=== PATIENT | female | born 1950 | race Caucasian/White ===

== ENCOUNTER 2020-06-22 10:24 | Outpatient (REF) | payer MEDICARE, OTHER, SELFPAY ==
[2020-06-22 13:28] LABS: MANUAL DIFF FLAG NO
[2020-06-22 13:30] LABS: Basophils Percent Auto 0.7 % (0-2); Eosinophils Absolute Auto 0.1 X10*3/uL (0.0-0.4); Eosinophils Percent Auto 1.3 % (0-4); Hematocrit 35.5 % (37-47); Imm Gran Abs Auto 0.02 X10*3/uL (0.00-0.03); Imm Gran Pct Auto 0.4 % (0.0-0.4); Lymphocytes Absolute Auto 1.4 X10*3/uL (1.2-4.9); Lymphocytes Percent Auto 25.4 % (20-40); Mean Corpuscular HGB Conc 33.8 g/dl (31.0-35.0); Mean Corpuscular Hemoglobin 32.9 pg (27.0-33.0); Mean Corpuscular Volume 97.3 fL (80-98); Mean Platelet Volume 10.6 fL (9.4-12.3); Monocytes Absolute Auto 0.5 X10*3/uL (0.1-1.2); Monocytes Percent Auto 8.1 % (2-11); Neutrophils Absolute Auto 3.6 X10*3/uL (2.0-8.3); Neutrophils Percent Auto 64.1 % (45-73); Platelet Count 164 X10*3/uL (160-400); Red Blood Count 3.65 X10*6/uL (4.20-5.50); Red Cell Distribution Width 12.9 % (11.0-16.0); White Blood Count 5.6 X10*3/uL (4.8-10.8)
[2020-06-22 13:57] LABS: Alanine Aminotransferase 29 U/L (0-31); Albumin Level 4.7 g/dL (3.5-5.0); Alkaline Phosphatase 76 U/L (39-117); Anion Gap 14 (12-20); Aspartate Amino Transferase 26 U/L (5-31); Bilirubin Total 0.8 mg/dL (0.0-1.0); Blood Urea Nitrogen 13 mg/dL (9-16); Calcium 9.4 mg/dL (8.4-10.2); Carbon Dioxide 28 mmol/L (22-29); Chloride 95 mmol/L (96-108); Cholesterol 212 mg/dL; Estimated Glomerular Filt Rate > 60; Glucose Fasting 143 mg/dL (60-99); HDL Cholesterol 74 mg/dL; LDL Cholesterol Calculated 106 mg/dl; Potassium 4.5 mmol/l (3.3-5.1); Sodium 132 mmol/L (135-145); Total Protein 7.6 g/dL (6.5-8.0); Triglycerides 164 mg/dL
[2020-06-22 13:58] LABS: Creatinine Urine 140.43 mg/dL; Microalbum/Creatinine Ratio Ur 5.6 ug/mg cr
[2020-06-22 14:39] LABS: Thyroid Stimulating Hormone 3.24 mIU/mL (0.32-4.0)
[2020-06-22 15:03] LABS: Folate > 20.0 ng/mL (> or = 4.0); Vitamin B12 1156 pg/mL (200-900)
[2020-06-22 15:10] LABS: T4 Thyroxine 5.2 ug/dL (4.5-12.0)
== END 2020-06-22 10:25 | disposition home or self-care (01) ==
LOC: HO.WFDLDS 10:24
PROVIDERS: PCP Internal Medicine; Visit Provider Internal Medicine
DX: E11.9 Type 2 diabetes mellitus without complications (principal); I10 Essential (primary) hypertension; E78.00 Pure hypercholesterolemia, unspecified; E66.9 Obesity, unspecified
CPT/HCPCS: 36415; 80053; 80061; 82043; 82607; 82746; 84436; 84443; 85025

== ENCOUNTER 2020-12-23 10:48 | Outpatient (REF) | payer MEDICARE, OTHER, SELFPAY ==
[2020-12-23 21:07] LABS: MANUAL DIFF FLAG NO
[2020-12-23 21:10] LABS: Basophils Absolute Auto 0.1 X10*3/uL (0.0-0.2); Basophils Percent Auto 0.8 % (0-2); Eosinophils Absolute Auto 0.1 X10*3/uL (0.0-0.4); Eosinophils Percent Auto 1.1 % (0-4); Hemoglobin 11.2 g/dl (12.0-16.0); Imm Gran Abs Auto 0.02 X10*3/uL (0.00-0.03); Imm Gran Pct Auto 0.3 % (0.0-0.4); Lymphocytes Absolute Auto 1.3 X10*3/uL (1.2-4.9); Lymphocytes Percent Auto 19.7 % (20-40); Mean Corpuscular HGB Conc 32.9 g/dl (31.0-35.0); Mean Corpuscular Hemoglobin 32.1 pg (27.0-33.0); Mean Corpuscular Volume 97.4 fL (80-98); Mean Platelet Volume 9.9 fL (9.4-12.3); Monocytes Absolute Auto 0.5 X10*3/uL (0.1-1.2); Monocytes Percent Auto 7.8 % (2-11); Neutrophils Absolute Auto 4.7 X10*3/uL (2.0-8.3); Neutrophils Percent Auto 70.3 % (45-73); Platelet Count 193 X10*3/uL (160-400); Red Blood Count 3.49 X10*6/uL (4.20-5.50); Red Cell Distribution Width 13.4 % (11.0-16.0); White Blood Count 6.6 X10*3/uL (4.8-10.8)
[2020-12-23 21:21] LABS: Alanine Aminotransferase 20 U/L (0-31); Albumin Level 4.1 g/dL (3.5-5.0); Alkaline Phosphatase 94 U/L (39-117); Anion Gap 15 (12-20); Aspartate Amino Transferase 18 U/L (5-31); Bilirubin Total 0.6 mg/dL (0.0-1.0); Blood Urea Nitrogen 13 mg/dL (9-16); Calcium 9.3 mg/dL (8.4-10.2); Carbon Dioxide 26 mmol/L (22-29); Chloride 96 mmol/L (96-108); Cholesterol 188 mg/dL; Estimated Glomerular Filt Rate 52; Glucose Fasting 153 mg/dL (60-99); HDL Cholesterol 69 mg/dL; LDL Cholesterol Calculated 97 mg/dl; Potassium 4.6 mmol/L (3.3-5.1); Sodium 132 mmol/L (135-145); Total Protein 7.2 g/dL (6.5-8.0); Triglycerides 110 mg/dL
[2020-12-23 21:34] LABS: Creatinine Urine 220.58 mg/dL; Microalbum/Creatinine Ratio Ur 49.4 ug/mg cr
[2020-12-23 21:42] LABS: Thyroid Stimulating Hormone 2.39 uIU/mL (0.32-4.0)
[2020-12-24 07:26] LABS: Estimated Average Glucose 120 mg/dL; Hemoglobin A1c % 5.8 %
[2020-12-24 09:41] LABS: Folate 16.7 ng/mL (> or = 4.0); Vitamin B12 953 pg/mL (200-900)
== END 2020-12-23 10:49 | disposition home or self-care (01) ==
LOC: HO.WFDLDS 10:48
PROVIDERS: Visit Provider Internal Medicine
DX: E78.00 Pure hypercholesterolemia, unspecified (principal)
CPT/HCPCS: 36415; 80053; 80061; 82043; 82607; 82746; 83036; 84443; 85025

== ENCOUNTER 2021-02-03 13:26 | Outpatient (REF) | payer MEDICARE, OTHER, SELFPAY ==
--- NOTE | ~2021-02-03 | MM_ITS ---
EXAMINATION: MM SCREENING DIGITAL BREAST TOMOSYNTHESIS, BILATERAL CLINICAL INFORMATION: Screening. Asymptomatic. The lifetime risk of breast cancer based on the Tyrer-Cuzick Model is 4%. COMPARISON: Mammography: September 16, 2019 and studies dating back to April 22, 2012 TECHNIQUE: Digital breast tomosynthesis is performed in both the craniocaudal and mediolateral oblique views along with computer-aided detection (CAD). Synthesized 2D images are generated from the tomosynthesis. FINDINGS: The breasts are heterogeneously dense, which may obscure small masses (ACR BI-RADS breast composition Category c). There are no significant masses, abnormal calcifications, or other abnormalities. MM/MM tomosynthesis screening BI IMPRESSION: There are no significant changes from prior study. ASSESSMENT: BI-RADS 1: Negative RECOMMENDATION: Routine annual mammography screening. This patient's information was entered into a reminder system with a target due date for their next mammogram.
== END 2021-02-03 13:27 | disposition home or self-care (01) ==
LOC: HO.MAMMO 13:26
PROVIDERS: Visit Provider Internal Medicine
DX: Z12.31 Encounter for screening mammogram for malignant neoplasm of breast (principal)
CPT/HCPCS: 77063; 77067

== ENCOUNTER 2021-03-31 14:27 | Outpatient (REF) | payer MEDICARE, OTHER, SELFPAY ==
--- NOTE | ~2021-03-31 | MM_ITS ---
EXAMINATION: BONE DENSITOMETRY CLINICAL INDICATION: Other specified disorders of bone density and structure. COMPARISON: Previous BD dated 07/27/2015 and baseline BD dated 12/01/2008. TECHNIQUE: Using a Catacel DXA System (software version: 13.1) manufactured by [employer], dual-energy x-ray absorptiometry was performed of the lumbar spine and left hip. The images are of good technical quality. Summary results are attached. FINDINGS: AP SPINE L1-L4: Current: BMD 1.414 g/cm2, Z-score 3.5, T-score 1.9, normal, 8.5% increase from previous, 11.1% increase from baseline (<5% change is not significant). Prior: BMD 1.303 g/cm2. Baseline: BMD 1.273 g/cm2. LEFT FEMUR, NECK: Current: BMD 0.978 g/cm2, Z-score 1.1, T-score -0.4, normal. Prior: BMD 1.028 g/cm2. Baseline: BMD 1.057 g/cm2. LEFT FEMUR, TOTAL: Current: BMD 1.164 g/cm2, Z-score 2.5, T-score 1.2, normal, 6.1% decrease from previous, 3.2% decrease from baseline (<5% change is not significant). Prior: BMD 1.239 g/cm2. Baseline: BMD 1.202 g/cm2. IDENTIFIED RISK FACTORS: Menopause. HISTORY OF FRACTURE: None listed. MEDICATIONS: Vitamin D. MM/XR DEXA axial skeleton IMPRESSION: 1. DIAGNOSIS: Normal bone density based on the lowest T-score value of -0.4 in the femoral neck applying World Health Organization criteria. 2. 10-YEAR FRACTURE RISK PREDICTION, FRAX: Major osteoporotic fracture (clinical spine, forearm, hip or shoulder) 7.5%. Hip fracture 0.4%. 3. Treatment Recommendations: NOF guidelines recommend consideration for treatment in postmenopausal women and men age 50 and older presenting with the following: -A hip or vertebral (clinical or morphometric) fracture. -T-score less than or equal to -2.5 at the femoral neck or spine after appropriate evaluation to exclude secondary causes. -Low bone mass at the hip or spine and a 10-year fracture probability by FRAX of greater than or equal to 3% for hip fracture or greater than or equal to 20% for major osteoporotic fracture based on the [place] adapted WHO algorithm. 4. Other Recommendations: All treatment decisions require clinical judgment and consideration of individual patient factors, including patient preferences, comorbidities, previous drug use, risk factors not captured in the FRAX model (e.g. frailty, falls, vitamin D deficiency, increased bone turnover, interval significant decline in bone density) and possible under or overestimation of fracture risk by FRAX. FUTURE SCAN RECOMMENDATION: People with diagnosed cases of osteoporosis or at high risk for fracture should have regular bone mineral density tests. For patients eligible for Medicare, routine testing is allowed once every 2 years. The testing frequency can be increased to one year for patients who have rapidly progressing disease, those who are receiving or discontinuing medical therapy to restore bone mass, or have additional risk factors.
== END 2021-03-31 14:28 | disposition home or self-care (01) ==
LOC: HO.MAMMO 14:27
PROVIDERS: Visit Provider Internal Medicine
DX: Z13.820 Encounter for screening for osteoporosis (principal); M85.89 Other specified disorders of bone density and structure, multiple sites; Z78.0 Asymptomatic menopausal state
CPT/HCPCS: 77080

== ENCOUNTER 2021-09-29 10:02 | Outpatient (REF) | payer MEDICARE, OTHER, SELFPAY ==
[2021-09-29 14:01] LABS: MANUAL DIFF FLAG NO
[2021-09-29 14:11] LABS: Basophils Percent Auto 0.8 % (0-2); Eosinophils Absolute Auto 0.1 X10*3/uL (0.0-0.4); Eosinophils Percent Auto 1.3 % (0-4); Hematocrit 32.1 % (37.0-47.0); Imm Gran Abs Auto 0.01 X10*3/uL (0.00-0.03); Imm Gran Pct Auto 0.3 % (0.0-0.4); Immature Retic Fraction 4.3 % (3.0-15.9); Lymphocytes Absolute Auto 1.3 X10*3/uL (1.2-4.9); Lymphocytes Percent Auto 31.4 % (20-40); Mean Corpuscular HGB Conc 34.3 g/dl (31.0-35.0); Mean Corpuscular Volume 96.4 fL (80.0-98.0); Mean Platelet Volume 9.9 fL (9.4-12.3); Monocytes Absolute Auto 0.3 X10*3/uL (0.1-1.2); Monocytes Percent Auto 7.3 % (2-11); Neutrophils Absolute Auto 2.4 x10*3/uL (2.0-8.3); Neutrophils Percent Auto 58.9 % (45-73); Platelet Count 143 X10*3/uL (160-400); Red Blood Count 3.33 X10*6/uL (4.20-5.50); Red Cell Distribution Width 12.1 % (11.0-16.0); Retic HGB Equivalent 37.1 pg (30.0-35.0); Reticulocyte Percent 1.2 % (0.5-1.8); Reticulocytes Absolute 0.039 X10*6/uL (0.026-0.095)
[2021-09-29 14:34] LABS: Ferritin 388 ng/mL (10-250)
[2021-09-29 14:36] LABS: Cholesterol 236 mg/dL; HDL Cholesterol 96 mg/dL; Iron 155 mcg/dL (30-160); LDL Cholesterol Calculated 117 mg/dl; Percent Iron Saturation 49 % (15-50); Total Iron Binding Capacity 317 mcg/dL (228-428); Triglycerides 115 mg/dL; Unsaturated Iron Binding 162 ug/dL
[2021-09-29 14:46] LABS: Folate 15.8 ng/mL (> or = 4.0); Vitamin B12 1227 pg/mL (200-900)
== END 2021-09-29 10:03 | disposition home or self-care (01) ==
LOC: HO.WFDLDS 10:02
PROVIDERS: Visit Provider Internal Medicine
DX: E78.00 Pure hypercholesterolemia, unspecified (principal); D64.9 Anemia, unspecified
CPT/HCPCS: 36415; 80061; 82607; 82728; 82746; 83540; 85025; 85045

== ENCOUNTER 2022-01-04 06:17 | Day surgery (SDC) | payer MEDICARE, OTHER, SELFPAY ==
[2021-12-29 14:39] VITALS: BMI 29.2
[2022-01-04 06:36] VITALS: BP 180/71; PULSE 78; RESP 18; TEMP 36.5; O2SAT 95
--- NOTE | 2022-01-04 07:16 | HO.ANESPROP2 ---
HPI - Anesthesia Eval Consult details Narrative: 71 yo female patient for colonoscopy PMFSH Active Problems Active Problems: All Active Problems (Updated 12/29/21 @ 14:32 by Alma Rosa Hunt RN) Anemia (Acute) Osteoarthritis of knees, bilateral (Acute) Colon cancer screening (Acute) Amezcua cyst (Acute) Osteopenia (Acute) Breast cancer screening by mammogram (Acute) Hypertension (Acute) Hypercholesterolemia (Acute) Type 2 diabetes mellitus with hyperglycemia (Acute) Past Medical History Medical History (Updated 12/29/21 @ 14:32 by Alma Rosa Hunt RN) Hypercholesterolemia Hypertension Type 2 diabetes mellitus with hyperglycemia Family History Family History Father Lung cancer Mother Myocardial infarction Family history of problems with anesthesia: No Surgical History Surgical History (Updated 12/29/21 @ 14:34 by Alma Rosa Hunt RN) H/O colonoscopy History of section History of Problems with Anesthesia: No Social History Social History Alcohol intake: current Alcohol intake frequency: a few times a month Alcohol type: wine Patient Tobacco Use Status: Former Tobacco user Tobacco use type: Cigarette e-Cigarette/Vaping Use: Never Used Second Hand Smoke Exposure: No Advance Directives: No (unknown-no answer & VM full) Advance Directives Information Provided: Yes (brochure mailed) Advance Directives on File: No Meds Allergies Allergy/AdvReac Type Severity Reaction Status Date / Time No Known Allergies Allergy Verified 01/04/22 06:42 [No Known Allergies*] Active Medications: Current Medications Sodium Biphosphate/Sodium Phosphate (Sodium Phosphate,Yates-Dibasic 133 Ml Enema) 133 ml LA ONCE PRN PRN Reason: Poor Colonoscopy Prep Results Home Medications Medication Instructions Recorded Confirmed Last Taken Type aspirin 81 mg tablet,delayed 81 mg PO DAILY 06/28/20 01/04/22 12/28/21 History release (Adult Aspirin Regimen) cholecalciferol (vitamin D3) 50 50 mcg PO DAILY 06/28/20 12/29/21 Unknown History mcg (2,000 unit) capsule multivitamin 1 tab PO DAILY 12/29/21 12/29/21 Unknown History Exam Exam Date and Time: January 04, 2022 0716 Height,Weight and Vital Signs: Height 5 ft 1 in Weight 70.307 kg Last Vital Signs Temp 97.7 F 01/04/22 06:36 Pulse 78 01/04/22 06:36 Resp 18 01/04/22 06:36 BP 180/71 H 01/04/22 06:36 Pulse Ox 95 01/04/22 06:36 Pertinent Lab Results Pertinent Lab Results: POC 123mg/dL Airway Mallampati Class: III TM Dist: >3cm Neck ROM: Full Heart: RRR Lungs: CTAB Assessment and Plan Assessment Anesthesia Assessment: Anesthesia Plan Discussed and Chart Reviewed Final Anesthetic Review Family History of Problems with Anesthesia: No History of Problems with Anesthesia: No NPO: Yes ASA Class: II Final Preanesthetic Review: No Changes in Pt Med Stat, Meds/Allgs Chart Reviewed, Consent Obtained/Reviewed and Anes Risks/Benef Reviewed Patient Risk: Low Procedure Risk: Low Assessment/Block/Sedation in SS: Assess/Block/Sedation-SS Anesthetic Plan Anesthetic Plan: MAC: Disposition: Standard PACU
[2022-01-04 07:17] VITALS: BP 142/94; PULSE 74; RESP 18; TEMP 37.1; O2SAT 98
[2022-01-04] MEDS: Lactated Ringers 1,000 ML 100 ML IVCONT (07:30)
[2022-01-04 07:47] LABS: Glucose, Whole Blood 123 mg/dL (60-115)
[2022-01-04 08:22] VITALS: BP 136/66; PULSE 112; RESP 18; TEMP 37.1; O2SAT 99
--- NOTE | 2022-01-04 08:22 | P.BOP_ITS ---
Brief Operative Note Date of Service: 01/04/22 Pre-op diagnosis: Screening Post-op diagnosis: other (Diverticulosis) Procedure: Colonoscopy to the cecum and TI Surgeon: Carlos Carlson Anesthesia: MAC Was an Chocolate Finisher Operator used for this Procedure?: No Estimated blood loss (mL): 0 Pathology: none sent Condition: stable Disposition: PACU
[2022-01-04 08:37] VITALS: BP 135/64; PULSE 92; RESP 18; O2SAT 99
[2022-01-04 08:52] VITALS: BP 143/72; PULSE 92; RESP 18; TEMP 36.2; O2SAT 99
--- NOTE | 2022-01-04 20:08 | OP_ITS ---
SURGEON: Carlos Carlson MD INDICATIONS: The patient presents for evaluation of colorectal cancer screening. Full consent has been obtained from her for this, including risks of bleeding and perforation. PREOPERATIVE DIAGNOSIS: Colorectal cancer screening. POSTOPERATIVE DIAGNOSIS: PROCEDURE PERFORMED: Colonoscopy to the cecum and terminal ileum. ESTIMATED BLOOD LOSS: COMPLICATIONS: ANESTHESIA: Monitored anesthesia care. ASSISTANTS: SPECIMENS: POSTOPERATIVE DIAGNOSES: Colorectal cancer screening, sigmoid diverticulosis, and internal hemorrhoids. DESCRIPTION OF PROCEDURE: The patient was placed in the left lateral decubitus position. The digital rectal exam revealed no abnormalities. The Olympus video pediatric colonoscope was entered into the rectum and advanced easily to the cecum. Once in the cecum, I did identify normal-appearing cecal pouch with appendiceal orifice and a normal-appearing ileocecal valve. The terminal ileum was cannulated and appeared normal. Scope withdrawn back in the colon. The entire cecum and ileocecal valve appeared normal. The scope was slowly withdrawn assessing all mucosal surfaces carefully. Preparation was excellent. I did not visualize any sign of polyps, colitis, or angiodysplasia. There was a mild amount of sigmoid diverticulosis. In the rectum, scope was retroflexed visualizing internal hemorrhoids, but no other pathology. The rectal mucosa appeared normal. The scope was straightened and withdrawn from the patient. She tolerated the procedure well and was returned to the recovery area in stable condition. IMPRESSION: 1. Sigmoid diverticulosis. 2. Internal hemorrhoids. PLAN: Given the negative exam, no significant family history of colorectal cancer, and a negative exam in 2010, I do not think she will need any further screening colonoscopies at this point given her age of 71 and the fact that she would be just about 82 years old when her next colonoscopy would be due. As such, she will see me on a p.r.n. basis. This has been discussed with her . MD KINZA Bernardo/MAYUR / [id number] [email or web address]
== END 2022-01-04 09:20 | disposition home or self-care (01) ==
PROVIDERS: PCP Internal Medicine; Visit Provider Internal Medicine
PROC: 0DJD8ZZ Inspection of Lower Intestinal Tract, Via Natural or Artificial Opening Endoscopic (ICD-10-PCS; CPT 45378; principal; 2022-01-04 07:30)
DX: Z12.11 Encounter for screening for malignant neoplasm of colon (principal); K57.30 Diverticulosis of large intestine without perforation or abscess without bleeding; K64.8 Other hemorrhoids; I10 Essential (primary) hypertension; E78.5 Hyperlipidemia, unspecified; E11.9 Type 2 diabetes mellitus without complications; Z79.82 Long term (current) use of aspirin; Z79.899 Other long term (current) drug therapy; Z87.891 Personal history of nicotine dependence
CPT/HCPCS: G0121; 82947; J2765

== ENCOUNTER 2022-02-07 13:36 | Outpatient (REF) | payer MEDICARE, OTHER, SELFPAY ==
--- NOTE | ~2022-02-07 | MM_ITS ---
EXAMINATION: MM SCREENING DIGITAL BREAST TOMOSYNTHESIS, BILATERAL CLINICAL INFORMATION: Screening. Asymptomatic. The lifetime risk of breast cancer based on the Tyrer-Cuzick Model is 3.2%. COMPARISON: Mammography: February 03, 2021 and studies dating back to June 06, 2014 TECHNIQUE: Digital breast tomosynthesis is performed in both the craniocaudal and mediolateral oblique views along with computer-aided detection (CAD). Synthesized 2D images are generated from the tomosynthesis. FINDINGS: The breasts are heterogeneously dense, which may obscure small masses (ACR BI-RADS breast composition Category c). There are no significant masses, abnormal calcifications, or other abnormalities. MM/MM tomosynthesis screening BI IMPRESSION: There are no significant changes from prior study. ASSESSMENT: BI-RADS 1: Negative RECOMMENDATION: Routine annual mammography screening. This patient's information was entered into a reminder system with a target due date for their next mammogram.
== END 2022-02-07 13:37 | disposition home or self-care (01) ==
LOC: HO.MAMMO 13:36
PROVIDERS: PCP Internal Medicine; Visit Provider Internal Medicine
DX: Z12.31 Encounter for screening mammogram for malignant neoplasm of breast (principal)
CPT/HCPCS: 77063; 77067

== ENCOUNTER 2023-05-09 12:28 | Emergency (ER) | payer MEDICARE, OTHER, SELFPAY ==
--- NOTE | 2023-05-09 12:29 | ECG_ITS ---
Test Reason : palpatations Blood Pressure : / mmHG Vent. Rate : 106 BPM Atrial Rate : 106 BPM P-R Int : 180 ms QRS Dur : 082 ms QT Int : 322 ms P-R-T Axes : 000 -26 147 degrees QTc Int : [address] & T wave abnormality, consider lateral ischemia Abnormal ECG When compared with ECG of 20-FEB-2016 21:06, Non-specific change in ST segment in Lateral leads Nonspecific T wave abnormality, improved in Anterior leads Heart rate has increased Referred By: Keisha Mccollum Electronically Signed By:MAUREEN MALONE
[2023-05-09 12:39] VITALS: BP 185/75; PULSE 108; RESP 19; TEMP 36.6; O2SAT 98; BMI 24.0
--- NOTE | 2023-05-09 12:39 | ED_ITS ---
HPI - General Adult General Chief complaint: Arrhythmia/Palpitations Stated complaint: Heart Palpitations Related Data Home Medications Medication Instructions Recorded Confirmed cholecalciferol (vitamin D3) 50 50 mcg PO DAILY 06/28/20 07/01/22 mcg (2,000 unit) capsule multivitamin 1 tab PO DAILY 12/29/21 07/01/22 Previous Rx's Medication Instructions Recorded losartan 50 mg tablet 50 mg PO BID #180 tabs 03/16/22 rosuvastatin 40 mg tablet (Crestor) 40 mg PO DAILY #90 tabs 10/01/22 atenolol 25 mg tablet 25 mg PO DAILY 90 days #90 tabs 04/09/23 Allergies Allergy/AdvReac Type Severity Reaction Status Date / Time No Known Allergies Allergy Verified 05/09/23 12:39 [No Known Allergies*] [facility] Past Medical History Medical History (Updated 11/06/22 @ 14:26 by Carla Lacey MD) Breast cancer screening by mammogram Colon cancer screening Hypercholesterolemia Hypertension Type 2 diabetes mellitus with hyperglycemia Surgical History H/O colonoscopy History of section Family History Family History Father Lung cancer Mother Myocardial infarction Social History Social History Housing: House Alcohol intake: current Alcohol intake frequency: a few times a month Alcohol type: wine Patient Tobacco Use Status: Former Tobacco user Tobacco use type: Cigarette e-Cigarette/Vaping Use: Never Used Second Hand Smoke Exposure: No Current occupational status: retired Cognitive needs: No Hearing needs: No Vision needs: No Physical Exam ED Vital Signs: Vital Signs - 24 hr 05/09/23 12:39 Temperature 98 F Pulse Rate 108 H Respiratory Rate 19 Blood Pressure 185/75 H Pulse Oximetry 98 Oxygen Delivery Method Room Air BMI result Body Mass Index 24.0 Course Course Course Narrative: This is an RME: Additional HPI, ROS, PE not included below will be deferred to primary provider. This is a 7-temt-pts-female, with a hx of htn, hld, type 2 diabetes, presenting to the emergency department with a complaint of heart palpitations since yesterday. Pt states that the palpitations have been constant. Denies hx of palpitations in the past. Denies chest pain, shortness of breath or dizziness. Heart sounds - tachycardic, but regular rhythm. BP elevated at 185/75 Plan: Labs, EKG Discharge Plan Discharge Prescriptions: No Action losartan 50 mg tablet 50 mg PO BID Qty: 180 3RF rosuvastatin [Crestor] 40 mg tablet 40 mg PO DAILY Qty: 90 2RF atenolol 25 mg tablet 25 mg PO DAILY 90 Days Qty: 90 1RF multivitamin Tablet 1 tab PO DAILY cholecalciferol (vitamin D3) 50 mcg (2,000 unit) capsule 50 mcg PO DAILY
[2023-05-09 12:54] LABS: MANUAL DIFF FLAG NO
[2023-05-09 12:56] LABS: Appearance Urine Clear; Basophils Absolute Auto 0.1 X10*3/uL (0.0-0.2); Basophils Percent Auto 1.1 % (0-2); Color Urine Yellow; Eosinophils Percent Auto 0.7 % (0-4); Glucose Urine UA Negative (Negative); Hematocrit 30.4 % (37.0-47.0); Hemoglobin 10.6 g/dl (12.0-16.0); Imm Gran Abs Auto 0.01 X10*3/uL (0.00-0.03); Imm Gran Pct Auto 0.2 % (0.0-0.4); Leukocyte Esterase Urine Negative (Negative); Lymphocytes Absolute Auto 1.4 X10*3/uL (1.2-4.9); Lymphocytes Percent Auto 25.8 % (20-40); Mean Corpuscular HGB Conc 34.9 g/dl (31.0-35.0); Mean Corpuscular Hemoglobin 33.3 pg (27.0-33.0); Mean Corpuscular Volume 95.6 fL (80.0-98.0); Mean Platelet Volume 9.4 fL (9.4-12.3); Monocytes Absolute Auto 0.4 X10*3/uL (0.1-1.2); Monocytes Percent Auto 6.9 % (2-11); Neutrophils Absolute Auto 3.5 x10*3/uL (2.0-8.3); Neutrophils Percent Auto 65.3 % (45-73); Nitrite Urine Negative (Negative); PH 5.5 (5.0-9.0); Platelet Count 159 X10*3/uL (160-400); Red Blood Count 3.18 X10*6/uL (4.20-5.50); Red Cell Distribution Width 11.7 % (11.0-16.0); Urine Blood Negative (Negative); Urine Ketones Trace mg/dL (Negative); Urine Protein Trace mg/dL (Neg-Trace); White Blood Count 5.4 X10*3/uL (4.8-10.8)
[2023-05-09 13:11] LABS: Alanine Aminotransferase 20 U/L (0-31); Albumin Level 4.7 g/dL (3.5-5.0); Alkaline Phosphatase 58 U/L (39-117); Anion Gap 18 (12-20); Aspartate Amino Transferase 29 U/L (5-31); Bilirubin Direct 0.3 mg/dL (0.0-0.5); Bilirubin Total 0.7 mg/dL (0.0-1.0); Blood Urea Nitrogen 17 mg/dL (9-16); Calcium 10.1 mg/dL (8.4-10.2); Carbon Dioxide 24 mmol/L (22-29); Chloride 99 mmol/L (96-108); Creatinine Clr Calc Pharmacy 38.8; Estimated Glomerular Filt Rate 49; Glucose Random 114 mg/dL (60-115); Magnesium 1.9 mg/dL (1.6-2.6); Potassium 4.2 mmol/L (3.3-5.1); Sodium 137 mmol/L (135-145); Total Protein 7.8 g/dL (6.5-8.0)
[2023-05-09 13:16] LABS: Troponin-I High Sensitivity 3.4 ng/L (<3.5-17.0)
[2023-05-09 16:19] VITALS: BP 161/58; PULSE 64; RESP 18; O2SAT 100
--- NOTE | 2023-05-09 17:57 | ED_ITS ---
HPI - Arrhythmia/Palpitations General Chief Complaint: Arrhythmia/Palpitations Stated Complaint: Heart Palpitations Time Seen by Provider: 05/09/23 15:49 History of Present Illness HPI narrative: Patient is a 72-year-old female with a history of borderline diabetes. History of hypertension history of hypercholesterolemia at approximately 11:00 patient had an episode of palpitation seems like the heartbeat was going fast it is not associated with shortness of breath not associated with diaphoresis not associated with near syncope. Patient's symptoms subsequently resolved after approximately 45 minutes. Something similar happen yesterday. Patient denies any coughing congestion upper respiratory symptoms there has been no changes in her medication there is no travel history there is no leg swelling there is no pain patient's symptoms had since resolved completely she has not seen a chief of staff doctor for the last 7 years. Had an echo done about 7 years ago. Related Data Home Medications Medication Instructions Recorded Confirmed cholecalciferol (vitamin D3) 50 50 mcg PO DAILY 06/28/20 07/01/22 mcg (2,000 unit) capsule multivitamin 1 tab PO DAILY 12/29/21 07/01/22 Previous Rx's Medication Instructions Recorded losartan 50 mg tablet 50 mg PO BID #180 tabs 03/16/22 rosuvastatin 40 mg tablet (Crestor) 40 mg PO DAILY #90 tabs 10/01/22 atenolol 25 mg tablet 25 mg PO DAILY 90 days #90 tabs 04/09/23 Allergies Allergy/AdvReac Type Severity Reaction Status Date / Time No Known Allergies Allergy Verified 05/09/23 12:39 [No Known Allergies*] Review of Systems Review of Systems: Positive palpitation Yes all other systems are reviewed and are negative PMFSH Past Medical History Attestation statement: The following information was validated with the patient. Medical History Breast cancer screening by mammogram Colon cancer screening Hypercholesterolemia Hypertension Type 2 diabetes mellitus with hyperglycemia Surgical History H/O colonoscopy History of section Family History Family History Father Lung cancer Mother Myocardial infarction Social History Social History Housing: House Alcohol intake: never Patient Tobacco Use Status: Former Tobacco user Tobacco use type: Cigarette Smoked in Last 30 Days: No e-Cigarette/Vaping Use: Never Used Second Hand Smoke Exposure: No Use of substances other than those prescribed or required for medical reasons: No Advance Directives: No Advance Directives Information Provided: No Current occupational status: retired Cognitive needs: No Hearing needs: No Vision needs: No Physical Exam Vital Signs: Vital Signs: Last Vital Signs Temp 98 F 05/09/23 12:39 Pulse 64 05/09/23 16:19 Resp 18 05/09/23 16:19 BP 161/58 H 05/09/23 16:19 Pulse Ox 100 05/09/23 16:19 O2 Del Method Room Air 05/09/23 16:19 BMI result Body Mass Index 24.0 Appearance: Alert. Oriented X3. No acute distress. Eyes: Pupils equal, round and reactive to light. ENT: Pharynx normal. Neck: Normal inspection. Neck supple. No lymph nodes noted. No crepitus CVS: Normal heart rate and rhythm. Pulses normal. Normal S1 and S2 Respiratory: No respiratory distress. Breath sounds normal. No Wheezing. No rales Abdomen: Soft and nontender. No rigidity. No distention. good BS x4 Skin: Skin warm and dry. Normal skin color. Normal skin turgor. Extremities: No lower extremity edema. Neurovascular intact to all extremities. No Lacerations. No Rash Neuro: Oriented X 3. No motor deficit. No sensory deficit. Moving all extermities. No slurred speech Medical Decision Making Medical Decision Making [facility] Narrative: Well-appearing in no acute distress patient's EKG showed a sinus rhythm heart rate is 100 TX QRS QTC within normal limits there is no acute ST segment elevation. Patient's troponin is normal. Electrolytes unremarkable her LFTs are normal patient's urine showed no signs of infection. Has no symptoms currently. Wants to go home. Will consult cardiology and have patient closely follow-up given patient's age risk factors. In stable condition Case discussed with cardiology. Will have patient closely follow up on an outpatient basis. Stable condition. No distress with no symptoms. No risk factors or PE. No chest pain no syncope during the episode. Differential Diagnosis Differential Diagnoses: The differential diagnosis associated with the presentation includes Palpitation Consult Healthcare Provider Management of the patient was discussed with: Tack Cutter (Cardiology) Lab Data [facility] Lab Attestation statement: I reviewed the patient's lab results. 05/09/23 12:48 05/09/23 12:48 Labs: Lab Results 05/09/23 05/09/23 05/09/23 Range/Units 12:48 12:48 12:48 WBC 5.4 (4.8-10.8) X10*3/uL RBC 3.18 L (4.20-5.50) X10*6/uL Hgb 10.6 L (12.0-16.0) g/dl Hct 30.4 L (37.0-47.0) % MCV 95.6 (80.0-98.0) fL MCH 33.3 H (27.0-33.0) pg MCHC 34.9 (31.0-35.0) g/dl RDW 11.7 (11.0-16.0) % Plt Count 159 L (160-400) X10*3/uL MPV 9.4 (9.4-12.3) fL Immature Gran % (Auto) 0.2 (0.0-0.4) % Neut % (Auto) 65.3 (45-73) % Lymph % (Auto) 25.8 (20-40) % [place] % (Auto) 6.9 (2-11) % Eos % (Auto) 0.7 (0-4) % Baso % (Auto) 1.1 (0-2) % Lymph # (Auto) 1.4 (1.2-4.9) X10*3/uL [place] # (Auto) 0.4 (0.1-1.2) X10*3/uL Eos # (Auto) 0.0 (0.0-0.4) X10*3/uL Baso # (Auto) 0.1 (0.0-0.2) X10*3/uL Abs Immat Gran (auto) 0.01 (0.00-0.03) X10*3/uL Absolute Neuts (auto) 3.5 (2.0-8.3) x10*3/uL Absolute Nucleated RBC 0.000 (0.0-0.012) X10*3/uL Nucleated RBC % (auto) 0.0 (0.0-0.2) /100WBC Sodium 137 (135-145) mmol/L Potassium 4.2 (3.3-5.1) mmol/L Chloride 99 (96-108) mmol/L Carbon Dioxide 24 (22-29) mmol/L Anion Gap 18 (12-20) BUN 17 H (9-16) mg/dL Creatinine 1.10 (0.5-1.4) mg/dL Estim Creat Clear Calc 38.8 Estimated GFR 49 Random Glucose 114 (60-115) mg/dL Calcium 10.1 D (8.4-10.2) mg/dL Magnesium 1.9 (1.6-2.6) mg/dL Total Bilirubin 0.7 (0.0-1.0) mg/dL Direct Bilirubin 0.3 (0.0-0.5) mg/dL AST 29 (5-31) U/L ALT 20 (0-31) U/L Alkaline Phosphatase 58 (39-117) U/L Troponin I High Sens (<3.5-17.0) ng/L Total Protein 7.8 (6.5-8.0) g/dL Albumin 4.7 (3.5-5.0) g/dL Urine Color Yellow Urine Appearance Clear Urine pH 5.5 (5.0-9.0) Ur Specific [place] 1.020 (1.005-1.025) Urine Protein Trace (Neg-Trace) mg/dL Urine Glucose (UA) Negative (Negative) mg/dL Urine Ketones Trace (Negative) mg/dL Urine Blood Negative (Negative) Urine Nitrite Negative (Negative) Ur Leukocyte Esterase Negative (Negative) 05/09/23 Range/Units 12:48 WBC (4.8-10.8) X10*3/uL RBC (4.20-5.50) X10*6/uL Hgb (12.0-16.0) g/dl Hct (37.0-47.0) % MCV (80.0-98.0) fL MCH (27.0-33.0) pg MCHC (31.0-35.0) g/dl RDW (11.0-16.0) % Plt Count (160-400) X10*3/uL MPV (9.4-12.3) fL Immature Gran % (Auto) (0.0-0.4) % Neut % (Auto) (45-73) % Lymph % (Auto) (20-40) % [place] % (Auto) (2-11) % Eos % (Auto) (0-4) % Baso % (Auto) (0-2) % Lymph # (Auto) (1.2-4.9) X10*3/uL [place] # (Auto) (0.1-1.2) X10*3/uL Eos # (Auto) (0.0-0.4) X10*3/uL Baso # (Auto) (0.0-0.2) X10*3/uL Abs Immat Gran (auto) (0.00-0.03) X10*3/uL Absolute Neuts (auto) (2.0-8.3) x10*3/uL Absolute Nucleated RBC (0.0-0.012) X10*3/uL Nucleated RBC % (auto) (0.0-0.2) /100WBC Sodium (135-145) mmol/L Potassium (3.3-5.1) mmol/L Chloride (96-108) mmol/L Carbon Dioxide (22-29) mmol/L Anion Gap (12-20) BUN (9-16) mg/dL Creatinine (0.5-1.4) mg/dL Estim Creat Clear Calc Estimated GFR Random Glucose (60-115) mg/dL Calcium (8.4-10.2) mg/dL Magnesium (1.6-2.6) mg/dL Total Bilirubin (0.0-1.0) mg/dL Direct Bilirubin (0.0-0.5) mg/dL AST (5-31) U/L ALT (0-31) U/L Alkaline Phosphatase (39-117) U/L Troponin I High Sens 3.4 (<3.5-17.0) ng/L Total Protein (6.5-8.0) g/dL Albumin (3.5-5.0) g/dL Urine Color Urine Appearance Urine pH (5.0-9.0) Ur Specific [place] (1.005-1.025) Urine Protein (Neg-Trace) mg/dL Urine Glucose (UA) (Negative) mg/dL Urine Ketones (Negative) mg/dL Urine Blood (Negative) Urine Nitrite (Negative) Ur Leukocyte Esterase (Negative) Independent Interpretation I performed an independent interpretation of an: EKG (Sinus heart rate is 100 TX QRS QTC within normal limits is no acute ST segment elevation) Independent Historian Patient started External Record Review External record reviewed: Office record Previous echo record reviewed previous cardiology record reviewed Tests considered The following testing was considered but not selected: CTA of the chest but felt risk for PE low Chronic Conditions Patient?s care impacted by: Diabetes and Hypertension Discharge Plan Discharge Clinical Impression: Palpitation Patient Disposition: Home, Self-Care Instructions: Heart Palpitations (ED) Prescriptions: No Action losartan 50 mg tablet 50 mg PO BID Qty: 180 3RF rosuvastatin [Crestor] 40 mg tablet 40 mg PO DAILY Qty: 90 2RF atenolol 25 mg tablet 25 mg PO DAILY 90 Days Qty: 90 1RF multivitamin Tablet 1 tab PO DAILY cholecalciferol (vitamin D3) 50 mcg (2,000 unit) capsule 50 mcg PO DAILY Referrals: Po Colvin MD [Physician] - 05/11/23
[2023-05-09 19:02] VITALS: BP 156/77; PULSE 71; RESP 14; O2SAT 98
== END 2023-05-09 19:04 | disposition home or self-care (01) ==
PROVIDERS: Physician Assistant Medical; Emergency Provider Emergency Medicine Emergency Medical Services; PCP Internal Medicine
DX: R00.2 Palpitations (principal); I10 Essential (primary) hypertension; E78.00 Pure hypercholesterolemia, unspecified; Z87.891 Personal history of nicotine dependence; Z79.899 Other long term (current) drug therapy
CPT/HCPCS: 36415; 80048; 80076; 81003; 83735; 84484; 85025; 93005; 99283; 99285

== ENCOUNTER 2023-05-15 14:04 | Outpatient (AMB) | payer MEDICARE, OTHER, SELFPAY ==
--- NOTE | 2023-05-15 14:06 | MHC.OFFVIS ---
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 She states that she had a recent episode where she felt her heart fluttering and that led to presentation to the ER. However, EKG was unremarkable and showed only sinus rhythm. She was monitored for a while and then sent home. There has not been any recurrence of the same. Otherwise, she has a history of hypertension as well as dyslipidemia on appropriate medical therapy. No documented coronary disease. [facility] Medical History Breast cancer screening by mammogram Colon cancer screening Hypercholesterolemia Hypertension Type 2 diabetes mellitus with hyperglycemia Surgical History H/O colonoscopy History of section Family History Father Lung cancer Mother Myocardial infarction Social History (Updated 05/15/23 @ 14:13 by Madai Fair) Housing: House Alcohol intake: current Alcohol intake frequency: a few times a month Alcohol type: wine Patient Tobacco Use Status: Former Tobacco user Tobacco use type: Cigarette e-Cigarette/Vaping Use: Never Used Second Hand Smoke Exposure: No Current occupational status: retired Cognitive needs: No Hearing needs: No Vision needs: No Review of Systems Const Denies weakness ENT Denies dizziness Card Denies chest pain, Denies chest pain with activity, Denies syncope, Denies rapid heart rate, Denies pedal edema, Denies edema, Denies leg edema, Denies lightheadedness, Denies palpitations, Denies dyspnea, Denies dyspnea on exertion and Denies orthopnea Resp Denies cough, Denies dyspnea and Denies dyspnea on exertion GI Denies hematochezia and Denies change in stool character Musc Denies abnormal gait, Denies muscle cramps, Denies muscle weakness, Denies numbness, Denies radiating pain into limb and Denies tingling Neuro Denies abnormal gait, Denies dizziness, Denies syncope, Denies numbness, Denies tingling and Denies weakness Endo Denies palpitations Physical Exam Vital Signs: Last Vital Signs Pulse 72 05/15/23 14:09 BP 140/70 H 05/15/23 14:09 BMI result Body Mass Index 23.9 Const General: comfortable and no acute distress Orientation/consciousness: patient oriented x3 HEENT Other: Unremarkable Head: Yes normal to inspection Neck Neck: Yes normal visual inspection Chest Chest palpation & inspection: normal inspection of the chest Resp Auscultation: clear to auscultation bilaterally Cardio Palpation: normal PMI Heart sounds: S1 normal heart sound present, S2 normal heart sound present, no gallops, Murmur heart sound present systolic II/ and at the right sternal border and no rubs GI Palpation (GI): Soft to palpation Back/Spine/Pelvis Other: unremarkable Skin General skin exam: no rashes or lesions noted Neuro General: patient oriented x3 Extrem General: Yes normal to inspection Psych Mental Status: mental status grossly normal Assessment & Plan Assessment & Plan (1) Palpitation: Code(s): R00.2 - Palpitations Plan Recent 2 lead EKG shows sinus tachycardia 106/Min; left ventricular hypertrophy; possible left atrial enlargement; nonspecific ST-T changes; overall, similar to prior. Palpitations could be from supraventricular versus ventricular ectopy. Atrial flutter or fibrillation also possible. We can assess further with a Holter monitor for 7 days. Echocardiogram for cardiac function assessment. Follow-up after the above completed. Orders: Orders CA echo transthoracic complete Today R00.2 - Palpitations ECG 7 day holter monitor Today R00.2 - Palpitations Coding Level of Care Code New Pt Level 3 (05062) Diagnoses Palpitation R00.2
[2023-05-15 14:09] VITALS: BP 140/70; PULSE 72; BMI 23.9
== END 2023-05-15 14:24 | disposition home or self-care (01) ==
PROVIDERS: PCP Internal Medicine; Visit Provider Internal Medicine
DX: R00.2 Palpitations (principal)
CPT/HCPCS: 99203

== ENCOUNTER → 2023-05-15 14:04 | Outpatient (BNVA) | payer MEDICARE, OTHER, SELFPAY | PROVIDERS: PCP Internal Medicine; Visit Provider Internal Medicine | DX: R00.2 Palpitations (principal); R00.0 Tachycardia, unspecified; I51.7 Cardiomegaly | CPT/HCPCS: 99202 ==

== ENCOUNTER → 2023-06-11 07:57 | Outpatient (REF) | payer MEDICARE, OTHER, SELFPAY ==
--- NOTE | 2023-06-11 08:01 | HM_ITS ---
Conclusion: 1. Patient was monitored for total period of 7 days 2. Baseline was normal sinus with average heart of 69 beats per minute 3. No significant pauses noted 4. Frequent PACs noted with total burden of about 12.7% 5. Patient marked the counter 4 times but reported 1 event of palpitation a diary correlating with PAC MTDD
--- NOTE | 2023-06-11 08:01 | CA_ITS ---
Transthoracic Echocardiogram Patient (Last, First, Middle): Gale Rutledge R Gender: Female Date of : 1950 Age: 72 Procedure Date: 06/11/2023 Procedure Type: Transthoracic Echocardiogram Location: OP Height: 154.94 cm Weight: 57.61 kg BSA: 1.56 m2 Heart Rate: bpm BP: 122 / 74 mmHg Instructor Flying: JAYMIE Referring MD: Po Colvin MD Symptoms: R00.2 - Palpitations Study Quality: Adequate ECG Rhythm: Sinus Conclusions: - The left ventricular systolic function is normal. The calculated ejection fraction is 62% by biplane method. - No obvious valvular pathology seen on this study. Findings Left Ventricle Normal left ventricular cavity size. There is normal left ventricular wall thickness. The left ventricular systolic function is normal. The calculated ejection fraction is 62% by biplane method. There is no evidence of regional wall motion abnormalities. Diastolic function is normal for age. LV peak GLS -18.8%. Right Ventricle Normal right ventricular cavity size and systolic function. Atria Both atria are normal in size. Aortic Valve There is a normal trileaflet aortic valve. There is mild calcification of the aortic valve. There is no aortic valve stenosis. There is no aortic valve regurgitation. Mitral Valve The mitral valve appears normal. There is trace mitral valve regurgitation. There is no mitral valve stenosis. Pulmonic Valve The pulmonic valve is likely normal. Tricuspid Valve Normal tricuspid valve structure. There is trace tricuspid valve regurgitation. There is no evidence of pulmonary hypertension. Great Vessels The asc aorta is normal in size. Venous The inferior vena cava is normal in size and collapses greater than 50% with inspiration. Pericardium/Pleural There is no evidence of pericardial effusion. Prior Study Comparison No significant change compared to prior study dated: 03/20/2016. Recommendations, Care & Conclusions No obvious valvular pathology seen on this study. Measurements 2D Linear Measurements IVSd: 0.85 0.6-0.9/0.6-1.0 cm LVIDd: 4.46 3.9-5.3/4.2-5.9 cm LVIDd Index: 2.86 2.4-3.2/2.2-3.1 cm/m2 LVIDs: 2.77 2.0-3.6 cm LVPWd: 0.90 0.7-1.1 cm LA Diam: 2.80 2.7-3.8/3.0-4.0 cm LAIDs Index: 1.79 1.5-2.3 cm/m2 LV Mass: 157.04 67-162/88-224 g LV Mass Index: 100.67 43-95/49-115 g/m2 LVOT Diam: 2.00 3.0+(-)1.3 cm 2D Systolic Function EF 4C: 59.30 >55% EF 2C: 64.60 >55% EF BiP: 61.50 >55% Mitral Valve MV Pk E: 0.91 MV PK A: 0.63 MV Decel Time: 155.00 E/A: 1.50 E'Lateral: 8.05 E'Medial: 6.09 E/E' Med: 14.90 E/E' Lat: 11.30 PHT: 45.00 MVA PHT: 4.89 Decel [place]: 5.86 Aortic Valve AoV Pk Sharad: 1.21 AoV Mn Sharad: 0.88 AoV VTI: 0.32 AoV Pk Grad: 6.00 Aov Mn Grad: 3.00 JAE Cont.VTI: 2.50 LVOT LVOT Pk Sharad: 1.01 LVOT Mn Sharad: 0.69 LVOT VTI: 0.26 LVOT Pk Grad: 4.00 LVOT Mn Grad: 2.00 LVOT Diam: 2.00 LVOT Area: 3.14 Diastolic Function MV Pk E: 0.91 MV Pk A: 0.63 E/A: 1.50 E'Medial: 6.09 E/E' Med: 14.90 E' Laterial: 8.05 E/E' Lat: 11.30 Right Ventricle TAPSE (mm): 19.10 TVS' Sharad: 9.79 Tricuspid Valve TR Pk Sharad: 1.67 TR Pk Grad: 11.00 RA Press: 3.00 RVSP: 14.00 Great Vessels Aorta Sinus of Valsalva: 3.15 2.0-3.[address] [place]: 2.45 1.7-3.4 cm Ao Asc: 3.20 2.1-3.4 cm Updated in Other Vendor System with Status of Final Po Colvin MD electronically signed on 06/11/2023 11:58:48 AM with status of Final
== END ==
LOC: HO.CARD 07:57
PROVIDERS: PCP Internal Medicine; Visit Provider Internal Medicine
DX: R00.2 Palpitations (principal)
CPT/HCPCS: 93242; 93306

== ENCOUNTER → 2023-06-11 08:01 | Outpatient (BNV) | payer MEDICARE, OTHER, SELFPAY | PROVIDERS: PCP Internal Medicine; Visit Provider Internal Medicine | DX: I49.1 Atrial premature depolarization (principal) | CPT/HCPCS: 93244; 93306 ==

== ENCOUNTER 2023-07-19 13:37 | Outpatient (AMB) | payer MEDICARE, OTHER, SELFPAY ==
--- NOTE | 2023-07-19 13:41 | MHC.OFFVIS ---
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 Recently seen in consultation regarding palpitations. She had a recent episode when she felt her heart fluttering and led to ER presentation. EKG was unremarkable and showed sinus rhythm only. Otherwise, baseline hypertension/dyslipidemia. No documented coronary disease. Since last visit, she has had an echocardiogram and Holter. Overall feels okay but she is very anxious coming here. Blood pressure is also on the higher side again partly from anxiety. She does not do home blood pressures. Still feels off and on palpitations. [facility], [facility] Medical History Breast cancer screening by mammogram Colon cancer screening Hypercholesterolemia Hypertension Type 2 diabetes mellitus with hyperglycemia Surgical History H/O colonoscopy History of section Family History Father Lung cancer Mother Myocardial infarction Social History Housing: House Alcohol intake: current Alcohol intake frequency: a few times a month Alcohol type: wine Patient Tobacco Use Status: Former Tobacco user Tobacco use type: Cigarette e-Cigarette/Vaping Use: Never Used Second Hand Smoke Exposure: No Current occupational status: retired Cognitive needs: No Hearing needs: No Vision needs: No Review of Systems Const Denies weakness ENT Denies dizziness Card Denies chest pain, Denies chest pain with activity, Denies syncope, Denies rapid heart rate, Denies pedal edema, Denies edema, Denies leg edema, Denies lightheadedness, Denies palpitations, Denies dyspnea, Denies dyspnea on exertion and Denies orthopnea Resp Denies cough, Denies dyspnea and Denies dyspnea on exertion GI Denies hematochezia and Denies change in stool character Musc Denies abnormal gait, Denies muscle cramps, Denies muscle weakness, Denies numbness, Denies radiating pain into limb and Denies tingling Neuro Denies abnormal gait, Denies dizziness, Denies syncope, Denies numbness, Denies tingling and Denies weakness Endo Denies palpitations Physical Exam Vital Signs: Last Vital Signs Pulse 66 07/19/23 13:43 BP 170/70 H 07/19/23 13:43 BMI result Body Mass Index 25.2 Const General: comfortable and no acute distress Orientation/consciousness: patient oriented x3 HEENT Other: Unremarkable Head: Yes normal to inspection Neck Neck: Yes normal visual inspection Chest Chest palpation & inspection: normal inspection of the chest Resp Auscultation: clear to auscultation bilaterally Cardio Palpation: normal PMI Heart sounds: S1 normal heart sound present, S2 normal heart sound present, no gallops, no murmurs and no rubs GI Palpation (GI): Soft to palpation Back/Spine/Pelvis Other: unremarkable Skin General skin exam: no rashes or lesions noted Neuro General: patient oriented x3 Extrem General: Yes normal to inspection Psych Mental Status: mental status grossly normal Assessment & Plan Assessment & Plan (1) Palpitation: Code(s): R00.2 - Palpitations (2) Atrial arrhythmia: Code(s): I49.8 - Other specified cardiac arrhythmias (3) Hypertension: Code(s): I10 - Essential (primary) hypertension Qualifiers: Hypertension type: primary hypertension Qualified Code(s): I10 - Essential (primary) hypertension Plan Cardiac studies reviewed. EKG shows sinus tachycardia 106/Min; left ventricular hypertrophy; possible left atrial enlargement; nonspecific ST-T changes; overall, similar to prior. Echocardiogram with LVEF of 60%. No wall motion abnormalities and otherwise unremarkable. Holter monitor shows underlying sinus rhythm with an average rate of 69/Min. Frequent PACs. Findings discussed with patient. Her atenolol dose has already been increased because of the frequent PACs. She continue that for now. With regard to blood pressure not clear how much anxiety plays a role. Hence advised to do home readings as well and contact us. She understands. If home readings still high, then we can increase the atenolol dose even further or may need to add additional medications. Will get a home sleep study to assess for any DOMINGUEZ. Follow-up in 3 months. Orders: Orders RT home sleep study Today G47.33 - Obstructive sleep apnea (adult) (pediatric) Coding Level of Care Code Est Pt Level 4 (39364) Diagnoses Palpitation R00.2 Atrial arrhythmia I49.8 Primary hypertension I10 Hypertension type: primary hypertension
[2023-07-19 13:43] VITALS: BP 170/70; PULSE 66; BMI 25.2
== END 2023-07-19 14:37 | disposition home or self-care (01) ==
PROVIDERS: PCP Internal Medicine; Visit Provider Internal Medicine
DX: R00.2 Palpitations (principal); I49.8 Other specified cardiac arrhythmias; I10 Essential (primary) hypertension
CPT/HCPCS: 99214

== ENCOUNTER → 2023-07-19 13:37 | Outpatient (BNVA) | payer MEDICARE, OTHER, SELFPAY | PROVIDERS: PCP Internal Medicine; Visit Provider Internal Medicine | DX: I49.8 Other specified cardiac arrhythmias (principal); I10 Essential (primary) hypertension; R00.2 Palpitations | CPT/HCPCS: 99212 ==

== ENCOUNTER → 2023-08-28 14:23 | Outpatient (REF) | payer MEDICARE, OTHER, SELFPAY | LOC: HO.SL 14:23 | PROVIDERS: PCP Internal Medicine; Visit Provider Internal Medicine | DX: G47.33 Obstructive sleep apnea (adult) (pediatric) (principal) | CPT/HCPCS: 95806 ==

== ENCOUNTER → 2023-08-28 14:37 | Outpatient (BNV) | payer MEDICARE, OTHER, SELFPAY | PROVIDERS: PCP Internal Medicine; Visit Provider Internal Medicine | DX: R06.83 Snoring (principal) | CPT/HCPCS: 95806 ==

== ENCOUNTER 2024-09-25 09:40 | Inpatient (IN) | payer MEDICARE, OTHER, SELFPAY ==
--- NOTE | ~2024-09-25 | MR_ITS ---
CLINICAL HISTORY: elevated LFTs, no gallstones MR MRCP Comparison: CT/SR - CT ABDOMEN PELVIS W IV CON - 09/25/24 17:25 EST US/GA/SR - US ABDOMEN LIMITED - 09/25/24 15:02 EST Findings: No signal abnormality at the lung bases. Small amount of sludge in the gallbladder (series 2, image 12). No gallstones. There is gallbladder wall thickening and pericholecystic fluid. The common bile duct measures 7 mm, within normal limits for the patient's age. No common bile duct stone or abrupt cutoff. No dilation of the main pancreatic duct. Periportal edema is present. Perinephric stranding, nonspecific. The other solid organs are unremarkable. No bowel wall thickening or dilation. A normal appendix is identified. Colonic diverticulosis. No aneurysm. No lymphadenopathy. Trace ascites. No acute osseous abnormality. Impression: Acute acalculous cholecystitis is favored. No choledocholithiasis. This document has been electronically signed by: Manuela Kapoor MD on 09/25/2024 21:45:15
--- NOTE | ~2024-09-25 | US_ITS ---
EXAMINATION: US ABDOMEN LIMITED HISTORY: AP, elevated LFTs TECHNIQUE: Real-time grayscale ultrasound imaging of the right upper quadrant was performed and images were reviewed. COMPARISON: There are no prior studies for comparison. FINDINGS: Liver: The liver is normal in size, but demonstrates increased echotexture, consistent with steatosis. No focal mass or intrahepatic biliary ductal dilatation is identified. There is normal hepatopedal flow in the portal vein. Gallbladder and biliary tree: The gallbladder is unremarkable, without evidence of calculi, wall thickening, or pericholecystic fluid. There is no sonographic Pendleton sign. The common bile duct is normal in caliber measuring 2 mm. Right Kidney: The right kidney measures 9.3 cm in length. The right kidney is unremarkable, without evidence of masses, hydronephrosis, or calculi. Pancreas: The pancreatic head, neck, and body are unremarkable. The pancreatic tail is obscured by bowel gas. Abdominal aorta and inferior vena cava: The visualized portions of the abdominal aorta and inferior vena cava are normal in caliber. There is trace free fluid in the right upper quadrant. US/US abdomen limited IMPRESSION: Hepatic steatosis. Trace free fluid in the right upper quadrant. Electronically signed by: Carlos Oh MD 09/25/2024 03:29 PM [facility]
--- NOTE | ~2024-09-25 | CT_ITS ---
CLINICAL HISTORY: RUQ pain CT abdomen and pelvis with contrast Comparison: US/MA/SR - US ABDOMEN LIMITED - 09/25/24 15:02 EST Findings: No consolidation at the lung bases. No gallstones visible on CT. The gallbladder measures 3.6 cm in transverse dimension. There is gallbladder wall thickening and pericholecystic fluid. Underdistended thick-walled bladder. Question mild scarring in the upper pole of the left kidney. Small calcification in the uterus. default value. The other solid organs are unremarkable. No bowel wall thickening or dilation. A normal appendix is identified. Colonic diverticulosis. No aneurysm. Moderate calcified atherosclerotic disease. No lymphadenopathy. Trace infiltration of the mesentery with nonenlarged lymph nodes may indicate mesenteric panniculitis. Trace ascites. No acute osseous abnormality. Impression: No gallstones visible on CT or on the recent ultrasound. There is gallbladder wall thickening and pericholecystic fluid. Acute acalculous cholecystitis is suspected. This can be further evaluated with a HIDA scan. Systemic pathology as the etiology for gallbladder wall thickening and pericholecystic fluid may also be considered. Underdistended thick-walled bladder. Correlate with urinalysis to exclude cystitis. This document has been electronically signed by: Manuela Kapoor MD on 09/25/2024 17:59:36
--- NOTE | ~2024-09-25 | NM_ITS ---
EXAMINATION: NM HEPATOBILIARY WITH PHARM HISTORY: abdominal pain, possible acalculous cholecystitis TECHNIQUE: An hepatobiliary scan was performed following the intravenous administration of 3.0 mCi technetium 99m-mebrofenin. Approximately 70 minutes after injection of the radio pharmaceutical, the patient received 1.2 mcg CCK intravenously over 30 minutes. COMPARISON: Correlation is made with an MRCP and an abdominal ultrasound examination dated 09/25/2024. FINDINGS: There is normal uptake and excretion of the radiopharmaceutical by the liver. Gallbladder activity is noted at 20 minutes. Common bile duct and small bowel activity is noted at approximately 13 minutes. After the administration of intravenous CCK, no significant gallbladder emptying is identified. NM/NM hepatobiliary w pharm IMPRESSION: No evidence of cystic duct obstruction to suggest acute cholecystitis. No gallbladder emptying is seen after the administration of intravenous CCK, compatible with biliary dyskinesia. Electronically signed by: Carlos Oh MD 09/26/2024 03:35 PM [facility]
[2024-09-25 09:49] VITALS: BP 171/81; PULSE 60; RESP 16; TEMP 36.4; O2SAT 98; BMI 24.3
--- NOTE | 2024-09-25 11:46 | ECG_ITS ---
Test Reason : ABD PAIN Blood Pressure : */* mmHG Vent. Rate : 62 BPM Atrial Rate : 62 BPM P-R Int : 164 ms QRS Dur : 84 ms QT Int : 418 ms P-R-T Axes : -8 -23 47 degrees QTcB Int : 424 ms Normal sinus rhythm Normal ECG When compared with ECG of 09-May-2023 12:33, Vent. rate has decreased by 44 bpm Non-specific change in ST segment in Lateral leads T wave inversion no longer evident in Lateral leads Referred By: Keisha Mccollum Electronically Signed By: José Miguel Araiza
[2024-09-25 12:25] LABS: MANUAL DIFF FLAG NO
[2024-09-25 12:32] LABS: Basophils Percent Auto 0.4 % (0-2); Eosinophils Percent Auto 0.4 % (0-4); Hematocrit 30.9 % (37.0-47.0); Hemoglobin 10.9 g/dl (12.0-16.0); Imm Gran Abs Auto 0.01 X10*3/uL (0.00-0.03); Imm Gran Pct Auto 0.2 % (0.0-0.4); Lymphocytes Absolute Auto 0.6 X10*3/uL (1.2-4.9); Lymphocytes Percent Auto 12.6 % (20-40); Mean Corpuscular HGB Conc 35.3 g/dl (31.0-35.0); Mean Corpuscular Volume 99.4 fL (80.0-98.0); Mean Platelet Volume 9.2 fL (9.4-12.3); Monocytes Absolute Auto 0.3 X10*3/uL (0.1-1.2); Monocytes Percent Auto 6.6 % (2-11); Neutrophils Absolute Auto 3.6 x10*3/uL (2.0-8.3); Neutrophils Percent Auto 79.8 % (45-73); Platelet Count 143 X10*3/uL (160-400); Red Blood Count 3.11 X10*6/uL (4.20-5.50); White Blood Count 4.5 X10*3/uL (4.8-10.8)
[2024-09-25 12:42] LABS: Alanine Aminotransferase 311 U/L (0-31); Albumin Level 4.3 g/dL (3.5-5.0); Alkaline Phosphatase 155 U/L (39-117); Anion Gap 13 (12-20); Aspartate Amino Transferase 776 U/L (5-31); Bilirubin Direct 0.6 mg/dL (0.0-0.5); Bilirubin Total 1.1 mg/dL (0.0-1.0); Blood Urea Nitrogen 12 mg/dL (9-16); Calcium 9.6 mg/dL (8.4-10.2); Carbon Dioxide 24 mmol/L (22-29); Chloride 101 mmol/L (96-108); Creatinine Clr Calc Pharmacy 46.4; Estimated Glomerular Filt Rate > 60; Glucose Random 94 mg/dL (60-115); Lipase 29 U/L (8-78); Magnesium 1.8 mg/dL (1.6-2.6); Sodium 134 mmol/L (135-145); Total Protein 7.6 g/dL (6.5-8.0)
[2024-09-25 12:46] LABS: Troponin-I High Sensitivity < 2.7 ng/L (<3.5-17.0)
[2024-09-25 13:04] LABS: Influenza A PCR NEGATIVE (Negative); Influenza B PCR NEGATIVE (Negative); Resp Syncy Virus RNA Qual PCR NEGATIVE (Negative); SARS COV2 PCR INHOUSE NEGATIVE (Negative)
--- NOTE | 2024-09-25 13:33 | PC.NURSE ---
Pt comes to ED today from home with c/o GI upset. Pt denies pain however reports nausea and feeling queasy. A&Ox3, Pt is forgetful and reports she has a slight case of dementia. Skin is warm and dry Breaths and speech are unlabored. Facial symmetry noted. 20g to RAC placed. Pt is awaiting U/S
--- NOTE | 2024-09-25 13:59 | ED_ITS ---
HPI - General Adult General Chief complaint: Abdominal Pain Stated complaint: Abd pain Time Seen by Provider: 09/25/24 13:00 Source: patient, family and RN notes reviewed Mode of arrival: ambulatory Limitations: other (pt is a poor historian) History of Present Illness ED Provider: Ayde HPI narrative: 74-year-old female with no reported significant past medical history presenting for new onset severe abdominal pain. Patient reports she was awakened at 4:00 a.m. today with sharp, severe abdominal pain that came on and resolved spontaneously. Patient reports 2 similar episodes since, with most recent one in the waiting room with chills. Patient can not recall where exactly this pain was. The patient has never had this pain before. Patient reports nausea with these episodes, but no vomiting until a few moments ago. Patient denies history of appendectomy, cholecystectomy, and other surgical history aside from history of . Patient denies shoulder pain, arm pain, chest pain, shortness of breath, diarrhea, fever. Related Data Home Medications ?Medication ?Instructions ?Recorded ?Confirmed multivitamin 1 tab PO DAILY 12/29/21 07/19/23 Previous Rx's ?Medication ?Instructions ?Recorded atenolol 50 mg tablet 50 mg PO DAILY 90 days #90 tabs 07/09/23 rosuvastatin 40 mg tablet (Crestor) 40 mg PO DAILY #90 tabs 10/26/23 losartan 50 mg tablet 50 mg PO BID #180 tabs 06/26/24 Allergies Allergy/AdvReac Type Severity Reaction Status Date / Time No Known Allergies Allergy Verified 09/25/24 09:52 [No Known Allergies*] Review of Systems 2 Constitutional: Constitutional: Reports chills, Denies fatigue and Denies fever(s) Cardiovascular: Cardiovascular: Denies chest pain and Denies dyspnea Respiratory: Respiratory: Denies cough and Denies dyspnea Gastrointestinal: Gastrointestinal: Reports abdominal pain, Denies bloating, Denies constipation, Denies diarrhea, Reports nausea and Reports vomiting Endocrine: Endocrine: Denies fatigue PMFSH Past Medical History Medical History Breast cancer screening by mammogram Colon cancer screening Hypercholesterolemia Hypertension Type 2 diabetes mellitus with hyperglycemia Surgical History H/O colonoscopy History of section Family History Family History Father Lung cancer Mother Myocardial infarction Social History Social History Housing: House Alcohol intake: current Alcohol intake frequency: holidays/special occasions only Alcohol type: wine Patient Tobacco Use Status: Former Tobacco user Tobacco use type: Cigarette Smoked in Last 30 Days: No e-Cigarette/Vaping Use: Never Used Second Hand Smoke Exposure: No Use of substances other than those prescribed or required for medical reasons: No Advance Directives: No Advance Directives Information Provided: Yes Do you have a plan to hurt others: No Plan Current occupational status: retired Cognitive needs: No Hearing needs: No Vision needs: No Physical Exam ED Vital Signs: Vital Signs - 24 hr 09/25/24 09:49 Temperature 97.6 F Pulse Rate 60 Respiratory Rate 16 Blood Pressure 171/81 H Pulse Oximetry 98 Oxygen Delivery Method Room Air BMI result Body Mass Index 24.3 Const General: cooperative, healthy appearing, comfortable and no acute distress Nutritional Appearance: well nourished Orientation/consciousness: patient oriented x3 HENMT Head: Yes normocephalic and Yes atraumatic Resp Effort & Inspection: normal respiratory effort, able to speak in complete sentences and not labored GI Inspection: No distended Palpation (GI): Soft to palpation, not firm, Tenderness to palpation present (GI) in the RUQ and Pendleton's sign positive; not in the epigastrum and Rovsing's sign negative, no guarding and not rigid Auscultation: normoactive bowel sounds Skin General skin exam: no rashes or lesions noted and elasticity normal Neuro General: patient oriented x3 Cranial nerves: Yes Bilaterally intact EOM present Cognition (Neuro): normal cognition Extrem Other: Moving all extremities well without any obvious deformities Medical Decision Making Medical Decision Making MDM Narrative: 74-year-old female who denies any past medical history presents for evaluation of intermittent abdominal pain. Her history exam is consistent with biliary disease and your labs are significant for a transaminitis also consistent with choledocholithiasis. Plan for ultrasound of the right upper quadrant. The patient has no fever, no leukocytosis, I doubt infectious process Differential Diagnosis Differential Diagnoses: The differential diagnosis associated with the presentation includes Choledocholithiasis Acute cholecystitis Biliary colic Cholangitis less likely Appendicitis less likely Pancreatitis less likely Lab Data MDM Lab Attestation statement: I reviewed the patient's lab results. The patient has a mild thrombocytopenia of unclear etiology but she does have some evidence of liver disease which is new compared to her baseline. Electrolytes are significant for a sodium of 134, no other significant abnormalities. Her total bilirubin, direct bilirubin, AST, ALT and alk phos are all elevated likely indicative of choledocholithiasis. 09/25/24 12:22 09/25/24 12:22 Labs: Lab Results 09/25/24 Range/Units 12:22 WBC 4.5 L (4.8-10.8) X10*3/uL RBC 3.11 L (4.20-5.50) X10*6/uL Hgb 10.9 L (12.0-16.0) g/dl Hct 30.9 L (37.0-47.0) % MCV 99.4 H (80.0-98.0) fL MCH 35.0 H (27.0-33.0) pg MCHC 35.3 H (31.0-35.0) g/dl RDW 12.0 (11.0-16.0) % Plt Count 143 L (160-400) X10*3/uL MPV 9.2 L (9.4-12.3) fL Immature Gran % (Auto) 0.2 (0.0-0.4) % Neut % (Auto) 79.8 H (45-73) % Lymph % (Auto) 12.6 L (20-40) % [place] % (Auto) 6.6 (2-11) % Eos % (Auto) 0.4 (0-4) % Baso % (Auto) 0.4 (0-2) % Lymph # (Auto) 0.6 L (1.2-4.9) X10*3/uL [place] # (Auto) 0.3 (0.1-1.2) X10*3/uL Eos # (Auto) 0.0 (0.0-0.4) X10*3/uL Baso # (Auto) 0.0 (0.0-0.2) X10*3/uL Abs Immat Gran (auto) 0.01 (0.00-0.03) X10*3/uL Absolute Neuts (auto) 3.6 (2.0-8.3) x10*3/uL Absolute Nucleated RBC 0.000 (0.0-0.012) X10*3/uL Nucleated RBC % (auto) 0.0 (0.0-0.2) /100WBC Sodium 134 L (135-145) mmol/L Potassium 4.0 (3.3-5.1) mmol/L Chloride 101 (96-108) mmol/L Carbon Dioxide 24 (22-29) mmol/L Anion Gap 13 (12-20) BUN 12 (9-16) mg/dL Creatinine 0.90 (0.5-1.4) mg/dL Estim Creat Clear Calc 46.4 Estimated GFR > 60 Random Glucose 94 (60-115) mg/dL Calcium 9.6 (8.4-10.2) mg/dL Magnesium 1.8 (1.6-2.6) mg/dL Total Bilirubin 1.1 H (0.0-1.0) mg/dL Direct Bilirubin 0.6 H (0.0-0.5) mg/dL AST 776 H (5-31) U/L ALT 311 H (0-31) U/L Alkaline Phosphatase 155 H (39-117) U/L Troponin I High Sens < 2.7 (<3.5-17.0) ng/L Total Protein 7.6 (6.5-8.0) g/dL Albumin 4.3 (3.5-5.0) g/dL Lipase 29 (8-78) U/L Influenza Type A (PCR) NEGATIVE (Negative) Influenza Type B (PCR) NEGATIVE (Negative) RSV RNA Qual (PCR) NEGATIVE (Negative) SARS-CoV-2 RNA (RT-PCR) NEGATIVE (Negative) Discharge Plan Discharge Clinical Impression: Choledocholithiasis Patient Disposition: Still a Patient Prescriptions: No Action atenolol 50 mg tablet 50 mg PO DAILY 90 Days Qty: 90 3RF Rx Instructions: New dose of 50 mg (1 tablet) daily rosuvastatin [Crestor] 40 mg tablet 40 mg PO DAILY Qty: 90 2RF losartan 50 mg tablet 50 mg PO BID Qty: 180 3RF multivitamin Tablet 1 tab PO DAILY Print Language: Sinhala
[2024-09-25] MEDS: ondansetron HCL 4 MG/2 ML VIAL IVPUSH ×2 (14:05→15:22)
--- NOTE | 2024-09-25 14:38 | PC.NURSE ---
Pt vomited a moderate amount of last mean eaten (ice cream.) Provider made aware and order placed for zofran; Pt medicated per NOV.
[2024-09-25] MEDS: iohexoL 350 MG/ML 100 ML INFUS..BTL IV (17:29)
[2024-09-25 18:00] VITALS: BP 165/55; PULSE 60; RESP 16; TEMP 36.2; O2SAT 98
--- NOTE | 2024-09-25 20:12 | P.CONHOSP_ITS ---
History of Present Illness Data of Consult Service Date: 09/25/24 Primary Care Provider: Carla Lacey MD [facility] Reason for consult: Medical management and preop clearance Pt is a 74-year-old female with a PMH significant for HLD, HTN, prediabetes, and mild cognitive impairment who presented to the ED with sudden and severe central abdominal pain with nausea and vomiting. Workup in the ED including significant transaminitis and CT evidence concerning for acute acalculous cholecystitis. Pt was admitted to general surgery services with hospitalist consult for medical management and preop clearance. Pt is a poor historian and unable to state what symptoms she previously experienced were symptom onset or duration. Currently complaining of lower abdominal pain, but otherwise reports she feels ?fine?. No nausea, vomiting. Denies chest pain/pressure, palpitations. No fever, chills. Pt seems confused about both time and place, thinking that she is at [facility]. Family is at bedside who helps supplement HPI. Report pt awoke at 04:00 this morning crying in pain. Experienced some nausea and vomiting. Pt herself seems surprised at these red relations. reports patient's current mentation at baseline and she has been having mild confusion for many months. Cognitive picture concerning for undiagnosed dementia. Also notes that pt has not been taking her home medications since at least May of last year. Pt apparently has no monitoring program to ensure medication compliance and pt has stopped medications on her own. Pt herself seems to believe that she has been taking her medications, though claim hx by pharmacy also indicates prescriptions have not been filled in quite some time. Review of Systems 2 Review of Systems: Negative except for that which is stated in the HPI [facility] Medical History Breast cancer screening by mammogram Colon cancer screening Hypertension Hypercholesterolemia Type 2 diabetes mellitus with hyperglycemia Family History Father Lung cancer Mother Myocardial infarction Surgical History H/O colonoscopy History of section Social History Housing: House Alcohol intake: current Alcohol intake frequency: holidays/special occasions only Alcohol type: wine Patient Tobacco Use Status: Former Tobacco user Tobacco use type: Cigarette Smoked in Last 30 Days: No e-Cigarette/Vaping Use: Never Used Second Hand Smoke Exposure: No Use of substances other than those prescribed or required for medical reasons: No Advance Directives: No Advance Directives Information Provided: Yes Do you have a plan to hurt others: No Plan Current occupational status: retired Cognitive needs: No Hearing needs: No Vision needs: No Meds Allergies Allergy/AdvReac Type Severity Reaction Status Date / Time No Known Allergies Allergy Verified 09/25/24 09:52 [No Known Allergies*] Active Medications: Current Medications Acetaminophen (Acetaminophen 325 Mg Tablet) 650 mg PO QID PRN PRN Reason: headache, temp > 101 Calcium Carbonate (Calcium Carbonate 750 Mg Tab.Chew) 750 mg PO Q4H PRN PRN Reason: Heartburn Enoxaparin Sodium (Enoxaparin Sodium 40 Mg/0.4 Ml Syringe) 40 mg SUBCUT Q24H SERGIO Hydromorphone HCl (Hydromorphone Hcl 0.5 Mg/0.5 Ml Syringe) 0.5 mg IVPUSH Q3H PRN; Protocol PRN Reason: Pain, Severe (Pain Scale 7-10) Dextrose/Lactated Ringer's (D5lr) 1,000 mls @ 125 mls/hr IVCONT .Q8H SERGIO Piperacillin Sod/Tazobactam (Sod 3.375 gm/ Sodium Chloride) 50 mls @ 100 mls/hr IV Q6H SERGIO Magnesium Hydroxide (Milk Of Magnesia 30 Ml Oral.Susp) 30 ml PO DAILY PRN PRN Reason: Constipation Melatonin (Melatonin 3 Mg Tablet) 6 mg PO BEDTIME PRN PRN Reason: Insomnia Ondansetron HCl (Ondansetron Hcl 4 Mg/2 Ml Vial) 4 mg IVPUSH QID PRN PRN Reason: Nausea Oxycodone HCl (Oxycodone Hcl Immed Release 5 Mg Tablet) 5 mg PO Q6H PRN PRN Reason: Pain, Moderate(Pain Scale 4-6) Sodium Chloride (0.9 % Sodium Chloride Flush 3 Ml Syringe) 3 ml IVFLUSH QSHIFT SERGIO Home Medications ?Medication ?Instructions ?Recorded ?Confirmed ?Last Taken ?Type No Known Home Meds 09/25/24 09/25/24 Unknown History Physical Exam 2 Vital Signs and Narrative: Vital Signs: Last Vital Signs Temp 97.2 F 01/16/25 18:00 Pulse 60 09/25/24 18:00 Resp 16 09/25/24 18:00 BP 165/55 H 09/25/24 18:00 Pulse Ox 98 09/25/24 18:00 O2 Del Method Room Air 09/25/24 18:00 BMI result Body Mass Index 24.3 General: Alert and oriented to self, not fully to time, place, or situation. In no acute distress Resp: CTA bilaterally CVS: S1, S2, RRR GI: +BS, no distention, mild lower abdominal tenderness. Negative Pendleton's sign Skin: Warm, dry Neuro: Cranial nerves II-XII grossly intact bilaterally. Motor grossly intact bilaterally Extremities: No edema Psych: Pleasantly confused Results Labs 09/25/24 12:22 09/25/24 12:22 Labs: Laboratory Results - last 24 hr 09/25/24 12:22 MCV 99.4 H MCH 35.0 H MCHC 35.3 H RDW 12.0 Plt Count 143 L MPV 9.2 L Immature Gran % (Auto) 0.2 Neut % (Auto) 79.8 H Lymph % (Auto) 12.6 L [place] % (Auto) 6.6 Eos % (Auto) 0.4 Baso % (Auto) 0.4 Lymph # (Auto) 0.6 L [place] # (Auto) 0.3 Eos # (Auto) 0.0 Baso # (Auto) 0.0 Abs Immat Gran (auto) 0.01 Absolute Neuts (auto) 3.6 Absolute Nucleated RBC 0.000 Nucleated RBC % (auto) 0.0 Anion Gap 13 Estim Creat Clear Calc 46.4 Estimated GFR > 60 Random Glucose 94 Calcium 9.6 Magnesium 1.8 Total Bilirubin 1.1 H Direct Bilirubin 0.6 H AST 776 H ALT 311 H Alkaline Phosphatase 155 H Troponin I High Sens < 2.7 Total Protein 7.6 Albumin 4.3 Lipase 29 Influenza Type A (PCR) NEGATIVE Influenza Type B (PCR) NEGATIVE RSV RNA Qual (PCR) NEGATIVE SARS-CoV-2 RNA (RT-PCR) NEGATIVE Imaging Radiologist's Impressions: Impressions Abdomen Ultrasound 09/25/24 15:08 IMPRESSION: Hepatic steatosis. Trace free fluid in the right upper quadrant. Electronically signed by: Carlos Oh MD 09/25/2024 03:29 PM EST Assessment and Plan (1) Abdominal pain: Status: Acute Plan Pt is a 74-year-old female with a PMH significant for HLD, HTN, prediabetes, and mild cognitive impairment who presented to the ED with sudden and severe central abdominal pain with nausea and vomiting. Workup in the ED including significant transaminitis and CT evidence concerning for acute acalculous cholecystitis. Pt was admitted to general surgery services with hospitalist consult for medical management and preop clearance Acute cholecystitis vs choledocholithiasis Pt to undergo MRCP tomorrow Plan as per General surgery Preop clearance Pt previously worked up by Cardiology for palpitations in 07/2023 EKG, echocardiogram, and Holter monitor negative for arrhythmias though showed frequent PACs Palpitations originally controlled with atenolol 25 mg b.i.d., however pt stopped taking her home meds many months ago Currently denies any chest pain/pressure, or palpitations Given patient's age and comorbidities she is at moderate risk for planned surgical procedure RCRI 1 point No indication for additional workup treatment prior to surgery Hypertension Pt has been hypertensive as high as 171/81 Pt previously on losartan 50 mg p.o. b.i.d. and atenolol 25 mg b.i.d. Has not been taking antihypertensives for many months now Unclear if hypertension secondary to pain or medication noncompliance Will hold restarting losartan due to possible surgical procedure Pt is pulse has been 60, will hold atenolol due to low BP Resume losartan post surgery Resume beta-freddie post surgery if HR allows Hyperlipidemia Previously on rosuvastatin 40 mg daily Will resume statin Check lipid profile Cognitive impairment Pt with confusion about time, place, symptoms, as well as symptom onset and duration Has been reports pt currently at baseline, has been confused for some time Suspicious for undiagnosed dementia Will get OT evaluation for [place] Follow up outpatient Thank you for allowing us to participate in the care of this pt. Will continue to follow along with you.
--- NOTE | 2024-09-25 20:31 | PHA.MEDREC ---
Addendum entered by Jaren Rodriguez [facility] 09/25/24 21:36: MED REC CHECKED BY [facility] ADDED MEDS FOR PROVIDER REVIEW BUT PER SPOUSE PATIENT HASN'T BEEN TAKING IN AWHILE Original Note: Pharmacy Consult ? Medication Reconciliation Pharmacy has completed the medication reconciliation. Spoke with patients at bedside and he stated that the patient has dementia and back in May he noticed that the patient had an overabundance of her medication and it was clear to the that the patient has not been taking her medication. He did confirm she was taking the Losartan 50mg tab and Rosuvastatin 40mg tab but states it's been months since the last time shes taken those.
[2024-09-25] MEDS: Piperacillin Sodium/Tazobactam 3.375 GM in 0.9 % Sodium Chloride 50 ML IV (22:01)
[2024-09-25] MEDS: Enoxaparin Sodium 40 MG/0.4 ML SYRINGE SUBCUT (22:12)
[2024-09-25 22:38] VITALS: BP 165/57; PULSE 62; RESP 16; TEMP 36.5; O2SAT 100
[2024-09-25] MEDS: Dextrose 5 % and Lactated Ring 1,000 ML 125 ML IVCONT (23:27)
[2024-09-26] MEDS: Calcium Carbonate 750 MG TAB.CHEW PO (03:04)
[2024-09-26] MEDS: Piperacillin Sodium/Tazobactam 3.375 GM in 0.9 % Sodium Chloride 50 ML IV ×4 (04:01→21:30)
[2024-09-26 06:22] LABS: MANUAL DIFF FLAG NO
[2024-09-26 06:23] LABS: Basophils Percent Auto 0.7 % (0-2); Eosinophils Percent Auto 1.4 % (0-4); Hematocrit 27.8 % (37.0-47.0); Imm Gran Abs Auto 0.01 X10*3/uL (0.00-0.03); Imm Gran Pct Auto 0.3 % (0.0-0.4); Lymphocytes Absolute Auto 0.6 X10*3/uL (1.2-4.9); Lymphocytes Percent Auto 20.3 % (20-40); Mean Corpuscular Hemoglobin 35.3 pg (27.0-33.0); Mean Corpuscular Volume 98.2 fL (80.0-98.0); Monocytes Absolute Auto 0.2 X10*3/uL (0.1-1.2); Monocytes Percent Auto 7.6 % (2-11); Neutrophils Percent Auto 69.7 % (45-73); Platelet Count 103 X10*3/uL (160-400); Red Blood Count 2.83 X10*6/uL (4.20-5.50); Red Cell Distribution Width 12.1 % (11.0-16.0); White Blood Count 2.9 X10*3/uL (4.8-10.8)
[2024-09-26 06:50] LABS: Alanine Aminotransferase 243 U/L (0-31); Albumin Level 3.6 g/dL (3.5-5.0); Alkaline Phosphatase 157 U/L (39-117); Anion Gap 12 (12-20); Aspartate Amino Transferase 290 U/L (5-31); Bilirubin Direct 0.7 mg/dL (0.0-0.5); Bilirubin Total 1.7 mg/dL (0.0-1.0); Blood Urea Nitrogen 12 mg/dL (9-16); Calcium 9.1 mg/dL (8.4-10.2); Carbon Dioxide 24 mmol/L (22-29); Chloride 102 mmol/L (96-108); Cholesterol 193 mg/dL (<200); Creatinine Clr Calc Pharmacy 36.6; Estimated Glomerular Filt Rate 47; Glucose Random 98 mg/dL (60-115); HDL Cholesterol 95 mg/dL (>40); LDL Cholesterol Calculated 86 mg/dL (<100); Potassium 3.9 mmol/L (3.3-5.1); Sodium 134 mmol/L (135-145); Total Protein 6.4 g/dL (6.5-8.0); Triglycerides 63 mg/dL (<150)
--- NOTE | 2024-09-26 07:01 | P.HPGS_ITS ---
History of Present Illness History of Present Illness Date of Service: 09/26/24 Chief complaint: Acalculus Cholecystitis Narrative: Gale Rutledge is a 74 year old female presenting with complaints of abdominal pain in the right upper quadrant which woke patient from sleep at 4:00 AM ye sterday. Patient has dementia but according to her , she never had similar symptoms. She noted the pain improving after arriving in the ED. She also had nausea and vomiting. Work up in the ED with ultrasound revealed with no gallstones in the gallbladder, but CT abd and pelvis was significant for a thickened gallbladder wall suggestive acute cholecystitis. MRCP revealed possible sludge in the GB and no evidence of CBD stones. Acute acalculus cholecystitis was favored. This morning, the patient denies any abdominal pain and actually feels hungry. Review of Systems Review of Systems: Yes Unobtainable due to mental status PMFSH Past Medical History Medical History Breast cancer screening by mammogram Colon cancer screening Hypertension Hypercholesterolemia Type 2 diabetes mellitus with hyperglycemia Family History Family History Father Lung cancer Mother Myocardial infarction Surgical History Surgical History H/O colonoscopy History of section Social History Social History Housing: House Alcohol intake: current Alcohol intake frequency: holidays/special occasions only Alcohol type: wine Patient Tobacco Use Status: Former Tobacco user Tobacco use type: Cigarette Smoked in Last 30 Days: No e-Cigarette/Vaping Use: Never Used Second Hand Smoke Exposure: No Use of substances other than those prescribed or required for medical reasons: No Advance Directives: No Advance Directives Information Provided: Yes Do you have a plan to hurt others: No Plan Current occupational status: retired Cognitive needs: No Hearing needs: No Vision needs: No Meds Allergies Allergy/AdvReac Type Severity Reaction Status Date / Time No Known Allergies Allergy Verified 09/25/24 09:52 [No Known Allergies*] Active Medications: Current Medications Acetaminophen (Acetaminophen 325 Mg Tablet) 650 mg PO QID PRN PRN Reason: headache, temp > 101 Calcium Carbonate (Calcium Carbonate 750 Mg Tab.Chew) 750 mg PO Q4H PRN PRN Reason: Heartburn Last Admin: 09/26/24 03:04 Dose: 750 mg Enoxaparin Sodium (Enoxaparin Sodium 40 Mg/0.4 Ml Syringe) 40 mg SUBCUT Q24H [facility] Last Admin: 09/25/24 22:12 Dose: 40 mg Hydromorphone HCl (Hydromorphone Hcl 0.5 Mg/0.5 Ml Syringe) 0.5 mg IVPUSH Q3H PRN; Protocol PRN Reason: Pain, Severe (Pain Scale 7-10) Dextrose/Lactated Ringer's (D5lr) 1,000 mls @ 125 mls/hr IVCONT .Q8H [facility] Last Admin: 09/26/24 01:15 Dose: Not Given Piperacillin Sod/Tazobactam (Sod 3.375 gm/ Sodium Chloride) 50 mls @ 100 mls/hr IV Q6H [facility] Last Admin: 09/26/24 04:01 Dose: 100 mls/hr Magnesium Hydroxide (Milk Of Magnesia 30 Ml Oral.Susp) 30 ml PO DAILY PRN PRN Reason: Constipation Melatonin (Melatonin 3 Mg Tablet) 6 mg PO BEDTIME PRN PRN Reason: Insomnia Ondansetron HCl (Ondansetron Hcl 4 Mg/2 Ml Vial) 4 mg IVPUSH QID PRN PRN Reason: Nausea Oxycodone HCl (Oxycodone Hcl Immed Release 5 Mg Tablet) 5 mg PO Q6H PRN PRN Reason: Pain, Moderate(Pain Scale 4-6) Sodium Chloride (0.9 % Sodium Chloride Flush 3 Ml Syringe) 3 ml IVFLUSH QSHIFT [facility] Last Admin: 09/26/24 01:08 Dose: Not Given Home Medications ?Medication ?Instructions ?Recorded ?Confirmed ?Last Taken ?Type losartan 50 mg tablet 50 mg PO BID 09/25/24 09/25/24 Unknown History rosuvastatin 40 mg tablet 40 mg PO DAILY 09/25/24 09/25/24 Unknown History Physical Exam Vital Signs: Vital Signs: Last Vital Signs Temp 97.7 F 09/25/24 22:38 Pulse 62 09/25/24 22:38 Resp 16 09/25/24 22:38 BP 165/57 H 09/25/24 22:38 Pulse Ox 100 09/25/24 22:38 O2 Del Method Room Air 09/25/24 22:38 BMI result Body Mass Index 24.3 Const: General: cooperative and no acute distress Nutritional Appearance: well nourished Orientation/consciousness: patient oriented x3 Limitations: no limitations HEENT: Head: Yes normocephalic and Yes atraumatic Ears: hearing grossly normal bilaterally Resp: Effort & Inspection: normal respiratory effort, no audible wheezes, no cough and no respiratory distress Cardio: Jugular venous distension: no JVD GI: Other: soft, non-distended, non-tender to deep palp in all quadrants. No rebound, guarding or rigidity, weakly positive Pendleton's sign. Inspection: Yes normal to inspection Skin: Other: Warm, dry, no rash Neuro: General: patient oriented x3 Extrem: General: Yes no clubbing, cyanosis or edema Results Results Labs: Short CBC 09/25/24 09/26/24 Range/Units 12:22 05:57 WBC 4.5 L 2.9 L (4.8-10.8) X10*3/uL Hgb 10.9 L 10.0 L (12.0-16.0) g/dl Hct 30.9 L 27.8 L (37.0-47.0) % Plt Count 143 L 103 L D (160-400) X10*3/uL BMP 09/25/24 09/26/24 12:22 05:57 Sodium 134 L 134 L Potassium 4.0 3.9 Chloride 101 102 Carbon Dioxide 24 24 BUN 12 12 Creatinine 0.90 1.14 Calcium 9.6 9.1 Liver Function 09/25/24 09/26/24 Range/Units 12:22 05:57 Total Bilirubin 1.1 H 1.7 H (0.0-1.0) mg/dL Direct Bilirubin 0.6 H 0.7 H (0.0-0.5) mg/dL AST 776 H 290 H (5-31) U/L ALT 311 H 243 H (0-31) U/L Alkaline Phosphatase 155 H 157 H (39-117) U/L Albumin 4.3 3.6 (3.5-5.0) g/dL Assessment and Plan (1) Abdominal pain: Qualifiers: Abdominal location: right upper quadrant Qualified Code(s): R10.11 - Right upper quadrant pain Status: Acute (2) Acute acalculous cholecystitis: Status: Acute Plan 74 year old female with a recent history of abdominal pain in the right upper quadrant felt to possibly have acute acalculus cholecystitis. This morning the patient does feel improved and hungry. I recommended further evaluation with HIDA scan to confirm acute cholecystitis. Discussed with patient and her and they agree with the plan. Quality Stroke Does the patient have a stroke diagnosis?: No VTE Prior VTE?: No VTE Risk Level:: Surgical - moderate VTE Device Contraindication: N/A - Device Ordered VTE Drug Contraindication: N/A - Med Ordered Procedures Date of Service Date of Service: 09/26/24
--- NOTE | 2024-09-26 08:42 | PC.NURSE ---
Alert and responsive, denies pain or discomfort, remains NPO, at bedside
[2024-09-26 09:15] LABS: Appearance Urine Turbid; Color Urine Yellow; Glucose Urine UA Negative (Negative); Leukocyte Esterase Urine Negative (Negative); Nitrite Urine Negative (Negative); Specific Gravity - Urine >= 1.030 (1.005-1.025); UMIC TRIGGER UACC YES; Urine Blood Negative (Negative); Urine Ketones Negative (Negative); Urine Protein 30 (1+) mg/dL (Neg-Trace)
[2024-09-26 09:17] LABS: Bacteria Urine None Seen (None Seen); Hyaline Casts Urine 0-2 /LPF (0-2); RBC Urine 0-2 /HPF (0-2); Squamous Epithelial Cell Urine 0-2 /HPF (0-2); WBC Urine 0-5 /HPF (0-5)
[2024-09-26 09:48] VITALS: BP 166/68; PULSE 66; RESP 18; TEMP 36.6; O2SAT 100
[2024-09-26] MEDS: Dextrose 5 % and Lactated Ring 1,000 ML 125 ML IVCONT ×2 (11:33→21:20)
[2024-09-26 11:43] VITALS: BP 176/78; PULSE 60; RESP 16; TEMP 37.1; O2SAT 99
[2024-09-26] MEDS: 0.9 % Sodium Chloride Flush 3 ML SYRINGE IVFLUSH ×2 (15:04→21:18)
--- NOTE | 2024-09-26 15:28 | MHC.CM.PN ---
Addendum entered by Inocencio Aguilar 09/26/24 15:32: 'S NAME IS VERONIQUE REDDING. [phone] Original Note: [employer] MET WITH PT AT BEDSIDE PT STATES SHE LIVES WITH AT HOME PCP IS DR. VÁZQUEZ DOES NOT RECEIVE SERVICES PT DOES NOT USE DME PT STATES SHE HAS HCP NAMING PROXY ON FILE IMM DELIVERED
[2024-09-26 15:51] VITALS: BP 172/80; PULSE 60; RESP 16; TEMP 37.1; O2SAT 99
--- NOTE | 2024-09-26 16:45 | P.PNIM_ITS ---
Subjective Subjective Date of Service: 09/26/24 Interval History: Pt seen and evaluated in her room where she resting comfortably on the bed Pt denies any acute medical complaints No nausea, vomiting, abdominal pain Reports he is hungry and would like to eat Underwent HIDA scan which was negative for acute cholecystitis though showed likely biliary dyskinesia Diet has been advanced to clear liquid Review of Systems Negative except for that which is stated in the HPI Physical Exam 2 Vital Signs: Vital Signs: Last Vital Signs Temp 98.7 F 09/26/24 15:51 Pulse 60 09/26/24 15:51 Resp 16 09/26/24 15:51 BP 172/80 H 09/26/24 15:51 Pulse Ox 99 09/26/24 15:51 O2 Del Method Room Air 09/26/24 15:51 BMI result Body Mass Index 24.3 General: Alert and oriented to self, not fully to time, place, or situation. In no acute distress Resp: CTA bilaterally CVS: S1, S2, RRR GI: +BS, NT, no distention Skin: Warm, dry Neuro: Cranial nerves II-XII grossly intact bilaterally. Motor grossly intact bilaterally Extremities: No edema Psych: Pleasantly confused Objective Data Active Medications Acetaminophen (Acetaminophen 325 Mg Tablet) 650 mg PO QID PRN PRN Reason: headache, temp > 101 Calcium Carbonate (Calcium Carbonate 750 Mg Tab.Chew) 750 mg PO Q4H PRN PRN Reason: Heartburn Last Admin: 09/26/24 03:04 Dose: 750 mg Documented By: SHANIQUA Enoxaparin Sodium (Enoxaparin Sodium 40 Mg/0.4 Ml Syringe) 40 mg SUBCUT Q24H [facility] Last Admin: 09/25/24 22:12 Dose: 40 mg Documented By: SHANIQUA Hydromorphone HCl (Hydromorphone Hcl 0.5 Mg/0.5 Ml Syringe) 0.5 mg IVPUSH Q3H PRN; Protocol PRN Reason: Pain, Severe (Pain Scale 7-10) Dextrose/Lactated Ringer's (D5lr) 1,000 mls @ 125 mls/hr IVCONT .Q8H [facility] Last Admin: 09/26/24 11:33 Dose: 125 mls/hr Documented By: YARELI Piperacillin Sod/Tazobactam (Sod 3.375 gm/ Sodium Chloride) 50 mls @ 100 mls/hr IV Q6H [facility] Last Infusion: 09/26/24 15:37 Dose: Infused Documented By: DENNIS Magnesium Hydroxide (Milk Of Magnesia 30 Ml Oral.Susp) 30 ml PO DAILY PRN PRN Reason: Constipation Melatonin (Melatonin 3 Mg Tablet) 6 mg PO BEDTIME PRN PRN Reason: Insomnia Ondansetron HCl (Ondansetron Hcl 4 Mg/2 Ml Vial) 4 mg IVPUSH QID PRN PRN Reason: Nausea Oxycodone HCl (Oxycodone Hcl Immed Release 5 Mg Tablet) 5 mg PO Q6H PRN PRN Reason: Pain, Moderate(Pain Scale 4-6) Sodium Chloride (0.9 % Sodium Chloride Flush 3 Ml Syringe) 3 ml IVFLUSH QSHIFT [facility] Last Admin: 09/26/24 15:04 Dose: 3 ml Documented By: DENNIS Labs 09/26/24 05:57 09/26/24 05:57 Labs: Laboratory Results - last 24 hr 09/26/24 09/26/24 05:57 09:08 MCV 98.2 H MCH 35.3 H MCHC 36.0 H RDW 12.1 Plt Count 103 L D MPV 10.0 Immature Gran % (Auto) 0.3 Neut % (Auto) 69.7 Lymph % (Auto) 20.3 [place] % (Auto) 7.6 Eos % (Auto) 1.4 Baso % (Auto) 0.7 Lymph # (Auto) 0.6 L [place] # (Auto) 0.2 Eos # (Auto) 0.0 Baso # (Auto) 0.0 Abs Immat Gran (auto) 0.01 Absolute Neuts (auto) 2.0 Absolute Nucleated RBC 0.000 Nucleated RBC % (auto) 0.0 Anion Gap 12 Estim Creat Clear Calc 36.6 Estimated GFR 47 Random Glucose 98 Calcium 9.1 Total Bilirubin 1.7 H Direct Bilirubin 0.7 H AST 290 H ALT 243 H Alkaline Phosphatase 157 H Total Protein 6.4 L Albumin 3.6 Triglycerides 63 Cholesterol 193 LDL Cholesterol, Calc 86 HDL Cholesterol 95 Urine Color Yellow Urine Appearance Turbid Urine pH 8.0 Ur Specific [place] >= 1.030 H Urine Protein 30 (1+) H Urine Glucose (UA) Negative Urine Ketones Negative Urine Blood Negative Urine Nitrite Negative Ur Leukocyte Esterase Negative Urine RBC 0-2 Urine WBC 0-5 Ur Squamous Epith Cells 0-2 Urine Bacteria None Seen Hyaline Casts 0-2 Assessment and Plan (1) Abdominal pain: Status: Acute Plan Pt is a 74-year-old female with a PMH significant for HLD, HTN, prediabetes, and mild cognitive impairment who presented to the ED with sudden and severe central abdominal pain with nausea and vomiting. Workup in the ED including significant transaminitis and CT evidence concerning for acute acalculous cholecystitis. Pt was admitted to general surgery services with hospitalist consult for medical management and preop clearance Acute cholecystitis vs choledocholithiasis MRCP suggested acute acalculous cholecystitis without choledocholithiasis Underwent HIDA earlier today that was negative for cystic duct obstruction or acute cholecystitis, though was concerning for biliary dyskinesia Plan as per General surgery Preop clearance Pt previously worked up by Cardiology for palpitations in 07/2023 EKG, echocardiogram, and Holter monitor negative for arrhythmias though showed frequent PACs Palpitations originally controlled with atenolol 25 mg b.i.d., however pt stopped taking her home meds many months ago Currently denies any chest pain/pressure, or palpitations Given patient's age and comorbidities she is at moderate risk for planned surgical procedure RCRI 1 point, no indication for additional cardiac workup or treatment prior to surgery Hypertension Pt has been hypertensive as high as 171/81 Pt previously on losartan 50 mg p.o. b.i.d. and atenolol 25 mg b.i.d. Has not been taking antihypertensives for many months now Pt is pulse has been low at 60, will hold atenolol Will restart losartan 50mg bid Hyperlipidemia Previously on rosuvastatin 40 mg daily Will resume statin Lipid profile WNL Cognitive impairment Pt with confusion about time, place, symptoms, as well as symptom onset and duration Has been reports pt currently at baseline, has been confused for some time Suspicious for undiagnosed dementia Received OT evaluation for [place], scored 08/09 Pt needs additional support within her home to improve safety, compliance with med management, cooking, and simple ADLs Follow up outpatient Thank you for allowing us to participate in the care of this pt. Will continue to follow along with you. Quality Stroke Does the patient have a stroke diagnosis?: No VTE Prior VTE?: No VTE Risk Level:: Surgical - moderate VTE Device Contraindication: N/A - Device Ordered VTE Drug Contraindication: N/A - Med Ordered
[2024-09-26] MEDS: Enoxaparin Sodium 40 MG/0.4 ML SYRINGE SUBCUT (18:39)
[2024-09-26] MEDS: Losartan Potassium 50 MG TABLET PO (18:40)
[2024-09-26 23:31] VITALS: BP 142/69; PULSE 58; RESP 18; TEMP 36.2; O2SAT 95
[2024-09-27] MEDS: Piperacillin Sodium/Tazobactam 3.375 GM in 0.9 % Sodium Chloride 50 ML IV ×2 (02:34→08:06)
[2024-09-27 05:17] VITALS: BP 135/63; PULSE 53; RESP 18; TEMP 36.4; O2SAT 98
[2024-09-27] MEDS: Dextrose 5 % and Lactated Ring 1,000 ML 125 ML IVCONT ×2 (05:27→13:30)
[2024-09-27 07:24] VITALS: BP 176/80; PULSE 55; RESP 18; TEMP 36.6; O2SAT 98
[2024-09-27] MEDS: Losartan Potassium 50 MG TABLET PO (08:06)
[2024-09-27] MEDS: 0.9 % Sodium Chloride Flush 3 ML SYRINGE IVFLUSH (08:09)
--- NOTE | 2024-09-27 13:48 | PM.PNGS ---
Subjective Subjective Date of Service: 09/27/24 Interval history: Patient was evaluated in presence of family member. She is tolerating her diet. She has been up and around ambulating. No abdominal complaints. HIDA scan negative. She and her family member and I discussed possible discharge home and they would like to proceed. Physical Exam Vital Signs: Vital Signs: Last Vital Signs Temp 97.8 F 09/27/24 07:24 Pulse 55 09/27/24 07:24 Resp 18 09/27/24 07:24 BP 176/80 H 09/27/24 07:24 Pulse Ox 98 09/27/24 07:24 O2 Del Method Room Air 09/27/24 07:24 BMI result Body Mass Index 24.3 GI: Other: Abdomen is soft, benign Objective Data Active Medications Acetaminophen (Acetaminophen 325 Mg Tablet) 650 mg PO QID PRN PRN Reason: headache, temp > 101 Calcium Carbonate (Calcium Carbonate 750 Mg Tab.Chew) 750 mg PO Q4H PRN PRN Reason: Heartburn Last Admin: 09/26/24 03:04 Dose: 750 mg Documented By: SHANIQUA Enoxaparin Sodium (Enoxaparin Sodium 40 Mg/0.4 Ml Syringe) 40 mg SUBCUT Q24H [facility] Last Admin: 09/26/24 18:39 Dose: 40 mg Documented By: DENNIS Hydromorphone HCl (Hydromorphone Hcl 0.5 Mg/0.5 Ml Syringe) 0.5 mg IVPUSH Q3H PRN; Protocol PRN Reason: Pain, Severe (Pain Scale 7-10) Dextrose/Lactated Ringer's (D5lr) 1,000 mls @ 125 mls/hr IVCONT .Q8H [facility] Last Admin: 09/27/24 13:30 Dose: 125 mls/hr Documented By: TAURUS Piperacillin Sod/Tazobactam (Sod 3.375 gm/ Sodium Chloride) 50 mls @ 100 mls/hr IV Q6H [facility] Last Infusion: 09/27/24 08:42 Dose: Infused Documented By: TAURUS Losartan Potassium (Losartan Potassium 50 Mg Tablet) 50 mg PO BID SERGIO; Protocol Last Admin: 09/27/24 08:06 Dose: 50 mg Documented By: TAURUS Magnesium Hydroxide (Milk Of Magnesia 30 Ml Oral.Susp) 30 ml PO DAILY PRN PRN Reason: Constipation Melatonin (Melatonin 3 Mg Tablet) 6 mg PO BEDTIME PRN PRN Reason: Insomnia Ondansetron HCl (Ondansetron Hcl 4 Mg/2 Ml Vial) 4 mg IVPUSH QID PRN PRN Reason: Nausea Oxycodone HCl (Oxycodone Hcl Immed Release 5 Mg Tablet) 5 mg PO Q6H PRN PRN Reason: Pain, Moderate(Pain Scale 4-6) Sodium Chloride (0.9 % Sodium Chloride Flush 3 Ml Syringe) 3 ml IVFLUSH QSHIFT [facility] Last Admin: 09/27/24 08:09 Dose: 3 ml Documented By: TAURUS Terrazas 09/26/24 05:57 09/26/24 05:57 Procedures Date of Service Date of Service: 09/27/24 Progress Note: A&P Assessment and plan (1) Abdominal pain: Status: Acute Plan Current plan is discharge patient home with discharge instructions provided and she will follow up with Dr. Padilla as an outpatient. All questions answered. Time Spent With Patient Time: Total time managing care of this patient today ____ minutes. Quality Stroke Does the patient have a stroke diagnosis?: No VTE Prior VTE?: No VTE Risk Level:: Surgical - moderate VTE Device Contraindication: N/A - Device Ordered VTE Drug Contraindication: N/A - Med Ordered
--- NOTE | 2024-09-27 15:23 | MHC.CM.PN ---
PT CLEARED TO DC HOME TODAY WITH NO SERVICES VIA PRIVATE TRANSPORT
[2024-09-27 15:42] VITALS: BP 155/67; PULSE 68; RESP 18; TEMP 36.4; O2SAT 99
--- NOTE | 2024-09-27 16:02 | PM.DS ---
DS: Providers Provider Date of Service: 09/27/24 Date of admission: 09/25/24 18: Date of discharge: 09/27/24 Primary care physician: Carla Lacey MD Consults: 09/25/24 18: Consult to Hospitalist Routine Comment: Consulting Provider: [facility] Reason For Exam: abdominal pain med management, pre op eval DS: Diagnosis Discharge Diagnosis (1) Abdominal pain: Status: Acute DS: Summary Hospital Course Hospital Course: HPI AT ADMISSION: Gale Rutledge is a 74 year old female presenting with complaints of abdominal pain in the right upper quadrant which woke patient from sleep at 4:00 AM yesterday. Patient has dementia but according to her , she never had similar symptoms. She noted the pain improving after arriving in the ED. She also had nausea and vomiting. Work up in the ED with ultrasound revealed with no gallstones in the gallbladder, but CT abd and pelvis was significant for a thickened gallbladder wall suggestive acute cholecystitis. MRCP revealed possible sludge in the GB and no evidence of CBD stones. Acute acalculus cholecystitis was favored. This morning, the patient denies any abdominal pain and actually feels hungry. HOSPITAL COURSE: She was admitted to the surgical service for further workup. Further evaluation with HIDA scan to confirm acute cholecystitis was obtained which showed a patent cystic duct obstruction however no gallbladder emptying is seen after the administration of intravenous CCK, compatible with biliary dyskinesia. Her diet was advanced to solids. The following day she felt well and was tolerating a solid diet without nausea, vomiting or recurrent abd pain. Her abdomen remained benign and soft, nontender. She and her family felt comfortable with discharge to home. She was discharged to home on 09/27/24 in stable condition. She is to follow up in the office regarding the biliary dyskinesia. Status at Discharge Functional status at discharge: independent ambulation Overall status at discharge: patient is back to baseline Time Attestation Discharge Coordination Time (in mins): 30 Quality: Safe Use of Opioids Does Pt have an Active Cancer Diagnosis on the Problem List?: No Quality: Stroke Does the patient have a stroke diagnosis?: No Physical Exam Vital Signs: Vital Signs: Last Vital Signs Temp 97.6 F 09/27/24 15:42 Pulse 68 09/27/24 15:42 Resp 18 09/27/24 15:42 BP 155/67 H 09/27/24 15:42 Pulse Ox 99 09/27/24 15:42 O2 Del Method Room Air 09/27/24 15:42 BMI result Body Mass Index 24.3 Const: General: comfortable, no acute distress and alert Resp: Effort & Inspection: normal respiratory effort GI: Inspection: No distended Palpation (GI): Soft to palpation and nontender Discharge Plan Discharge Anticipated Discharge Date/Time: 09/27/24 13:49 Patient Disposition: Home, Self-Care Discharge Diagnosis: Abdominal pain Referrals: Lul Padilla MD [Physician] - 1 Week Po,Carla Willard MD [Primary Care Provider] - 1 Week Arthur Gardner MD [Physician] - 1 Week (Follow-up with Dr. Padilla next week please) Discharge Medications: Continued losartan 50 mg tablet 50 mg PO BID rosuvastatin 40 mg tablet 40 mg PO DAILY Discharge Orders: Discharge Order (Routine); Ordered 09/27/24 Ordered By: Arthur Gardner Diet: Advance to usual diet Activity on Discharge: No heavy lifting Stand Alone Forms: Patient Portal Discharge page Print Language: Estonian Care Plan Goals: Returned to baseline Health Concerns: No new issues Plan of Treatment: Convalescence Assessment: Stable Discharge Date/Time: 09/27/24 16:23
== END 2024-09-27 16:23 | disposition home or self-care (01) | DRG 446 ==
LOC: HO.ED 14:19 → HO.EDOVER 19:23 → HO.S3 09-26 09:26
PROVIDERS: Physician Assistant Medical; Admitting Provider Surgery; Emergency Provider Student in an Organized Health Care Education/Training Program; PCP Internal Medicine; Visit Provider Surgery
DX: K82.8 Other specified diseases of gallbladder (principal); F03.90 Unspecified dementia, unspecified severity, without behavioral disturbance, psychotic disturbance, mood disturbance, and anxiety; I10 Essential (primary) hypertension; G31.84 Mild cognitive impairment of uncertain or unknown etiology; E78.5 Hyperlipidemia, unspecified; Z20.822 Contact with and (suspected) exposure to COVID-19; Z91.148 Patient's other noncompliance with medication regimen for other reason; Z87.891 Personal history of nicotine dependence; Z79.899 Other long term (current) drug therapy
CPT/HCPCS: 0241U; 36415; 74177; 74181; 76705; 78227; 80048; 80053; 80061; 80076; 81001; 82248; 83690; 83735; 84484; 85025; 93005; 97165; 99285; A9537; J1650; J2405; J2543; J2805; Q9967

== ENCOUNTER → 2024-09-25 11:46 | Outpatient (BNV) | payer MEDICARE, OTHER, SELFPAY | PROVIDERS: Admitting Provider Surgery; Emergency Provider Student in an Organized Health Care Education/Training Program; PCP Internal Medicine; Visit Provider Internal Medicine Cardiovascular Disease | DX: R94.31 Abnormal electrocardiogram [ECG] [EKG] (principal); R10.9 Unspecified abdominal pain | CPT/HCPCS: 93010 ==

== ENCOUNTER → 2024-09-25 12:47 | Outpatient (BNV) | payer MEDICARE, OTHER, SELFPAY | PROVIDERS: Emergency Provider Student in an Organized Health Care Education/Training Program; PCP Internal Medicine; Visit Provider Radiology Diagnostic Radiology | DX: R10.11 Right upper quadrant pain (principal); R74.01 Elevation of levels of liver transaminase levels | CPT/HCPCS: 76705 ==

== ENCOUNTER 2024-09-25 18:25 | Outpatient (BNV) | payer MEDICARE, OTHER, SELFPAY | END 2024-09-26 13:00 | PROVIDERS: Admitting Provider Surgery; Emergency Provider Student in an Organized Health Care Education/Training Program; PCP Internal Medicine; Visit Provider Radiology Diagnostic Radiology | DX: R10.9 Unspecified abdominal pain (principal) | CPT/HCPCS: 78227 ==

== ENCOUNTER → 2024-09-25 18:25 | Outpatient (BNV) | payer MEDICARE, OTHER, SELFPAY | PROVIDERS: Admitting Provider Surgery; Emergency Provider Student in an Organized Health Care Education/Training Program; PCP Internal Medicine; Visit Provider Surgery | DX: R10.11 Right upper quadrant pain (principal) | CPT/HCPCS: 99222; 99238; 99499 ==

== ENCOUNTER → 2024-09-25 18:25 | Outpatient (BNV) | payer MEDICARE, OTHER, SELFPAY | PROVIDERS: Admitting Provider Surgery; Emergency Provider Student in an Organized Health Care Education/Training Program; PCP Internal Medicine; Visit Provider Student in an Organized Health Care Education/Training Program | DX: R10.9 Unspecified abdominal pain (principal); K81.0 Acute cholecystitis | CPT/HCPCS: 99222; 99232 ==

== ENCOUNTER 2024-10-09 11:14 | Outpatient (AMB) | payer MEDICARE, OTHER, SELFPAY ==
[2024-10-09 11:17] VITALS: BP 126/66; PULSE 64; TEMP 36.2; O2SAT 98; BMI 24.4
--- NOTE | 2024-10-09 11:17 | A.OFFVIS_ITS ---
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 The gallbladder was noted to be dysfunctional during her last hospital visit. She did not undergo surgical intervention but has been advised on dietary modifications to manage symptoms. The patient reports previous episodes of severe upper abdominal pain, which she associated with the gallbladder issue. She limits dietary fats to mitigate symptoms. A recent HIDA scan confirmed compromised gallbladder function. Follow-up with a surgeon is planned. Apart from gallbladder concerns, the patient has chronic anemia, observed for 3-4 years, which is currently stable; however, her blood tests show elevated liver enzymes. She has essential hypertension and hyperlipidemia, both of which are managed with losartan and atorvastatin, respectively. Her blood pressure is reported to be well-controlled. She also has a history of familial moderate alcohol consumption but ceased after gallbladder symptoms appeared. - Pneumonia vaccination completed. - Influenza vaccination received in 2022. - Tetanus booster due; patient elected t o defer. - Scheduled mammogram and bone density s can requested for continuity of care. - Encouragement for reduction in dietary fats due to gallbladder dysfunction. - Advised to maintain hydration and phys ical activity. - COVID-19 and flu precautions advised d uring high exposure periods. - Former smoker; quit 45 years ago. - Regular moderate alcohol consumption r educed following gallbladder issues. - Takes daily baby aspirin and vitamin B 3. - Regular consumption of peanut butter m oderated based on dietary advice. - Resides with family and actively parti cipates in day-to-day activities. 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 - General: Denies fatigue or recent castellon ges in health status. - Cardiovascular: Denies chest pain, shannan rtness of breath, or palpitations. - Gastrointestinal: Denies present abdom inal pain or nausea. - Neurological: Denies headaches, dizzin ess, or memory loss. - Musculoskeletal: Denies joint pain or stiffness. - Labs: Elevated liver enzymes noted; an emia present but stable over several years. - Tests and Diagnostics: Gallbladder dys function confirmed via HIDA scan; echocardiogram shows normal left ventricular function at 62% ejection fraction. [facility] Medical History (Updated 10/09/24 @ 11:44 by Carla Lacey MD) Breast cancer screening by mammogram Colon cancer screening Hypertension Hypercholesterolemia Type 2 diabetes mellitus with hyperglycemia Surgical History H/O colonoscopy History of section Family History Father Lung cancer Mother Myocardial infarction Social History (Updated 10/09/24 @ 11:57 by Carla Lacey MD) Household Members: Spouse Housing: House Do you presently have visiting nurse or other home services: No Alcohol intake: current Alcohol intake frequency: holidays/special occasions only Alcohol type: wine Comment: Patient's daughter remains at bedside overnight. 2 glasses of wine 3 night Patient Tobacco Use Status: Former Tobacco user Tobacco use type: Cigarette Years Smoked: 37 years old stopped e-Cigarette/Vaping Use: Never Used Second Hand Smoke Exposure: No service: No Current occupational status: retired Cognitive needs: No Hearing needs: No Vision needs: No Questionnaire Medicare Wellness Checkup [age] What gender do you identify with?: female During the past 4 weeks, how much have you been bothered by emotional problems such as feeling anxious, depressed, irritable, sad or downhearted, and blue?: not at all During the past 4 weeks, has your physical & emotional health limited your social activities with family, friends, neighbors, or groups?: not at all During the past 4 weeks, how much bodily pain have you generally had?: no pain During the past 4 weeks, was someone available to help you if you needed & wanted help?: yes, as much as I wanted During the past 4 weeks, what was the hardest physical activity you could do for at least 2 minutes?: moderate Can you get to places out of walking distance without help? (For eg., can you travel alone on buses, taxis or drive your car?): Yes Can you go shopping for groceries or clothes without someone's help?: Yes Can you prepare your own meals?: Yes Can you do your housework without help?: Yes Because of any health problems, do you need the help of another person with your personal care needs such as eating, bathing, dressing or getting around the house?: No Can you handle your own money without help?: Yes During the past 4 weeks, how would you rate your health in general?: very good During the past 4 weeks how have things been going for you?: good & bad parts about equal Are you having difficulties driving your car?: no Do you always fasten your seat belt when you are in a car?: yes, usually During past 4 weeks, have you been bothered by the following: never: Falling or dizzy when standing up, Sexual problems?, Trouble eating well?, Teeth or denture problems?, Problems using the telephone? and Tiredness or fatigue? Have you fallen 2 or more times in the past year?: No Are you afraid of falling?: No Are you a smoker?: no During the past 4 weeks, how many drinks of wine, beer, or other alcoholic beverages did you have?: 2-5 drinks per week Do you exercise for about 20 minutes 3 or more times a week?: no, I usually do not exercise this much Have you been given information to help with the following?: yes: Keeping track of your medications? and no: Hazards in your house that might hurt you? How often do you have trouble taking medicines the way you have been told to take them?: I always take medicine as prescribed How confident are you that you can control & manage most of your health problems?: somewhat confident What is your race?: White PHQ-9 Over the last 2 weeks, how often have you been bothered by any of the following problems? 1. Little interest or pleasure in doing things: not at all 2. Feeling down, depressed, or hopeless: not at all 3. Trouble falling or staying asleep, or sleeping too much: not at all 4. Feeling tired or having little energy: several days 5. Poor appetite or overeating: not at all 6. Feeling bad about yourself - or that you are a failure or have let yourself or your family down: not at all 7. Trouble concentrating on things, such as reading the newspaper or watching television: several days 8. Moving or speaking so slowly that other people could have noticed. Or the opposite - being so fidgety or restless that you have been moving around a lot more than usual: not at all 9. Thoughts that you would be better off or of hurting yourself in some way: not at all Total score: 2 82494 - PHQ-9 Billing: Yes Source: Developed by Drs. Carlos Tucker, Patti Phillips, Lanre Jiméenz and colleagues, with an educational shawnee from [employer]. Review of Systems Const Denies poor appetite and Denies weakness Eyes Denies no additional complaints ENT Reports Normal hearing present, Denies dizziness, Denies nasal congestion, Denies tinnitus and Denies sore throat Card Denies chest pain, Denies syncope, Denies rapid heart rate and Denies dyspnea Resp Denies cough and Denies dyspnea GI Denies change in stool character, Reports constipation, Denies diarrhea, Denies nausea and Denies vomiting Denies urinary frequency, Denies difficulty voiding and Denies dysuria Neuro Reports Normal hearing present, Denies confusion, Denies dizziness, Denies syncope and Denies weakness Psych Denies confusion Physical Exam Vital Signs: Last Vital Signs Temp 97.1 F 10/09/24 11:17 Pulse 64 10/09/24 11:17 BP 126/66 10/09/24 11:17 Pulse Ox 98 10/09/24 11:17 Oxygen Delivery Method Room Air 10/09/24 11:17 BMI result Body Mass Index 24.4 Const General: No confusion Orientation/consciousness: No confusion HEENT Head: Yes normocephalic Ears: external ears normal and TM's normal bilaterally Face and sinus: Yes normal facial exam Mouth: moist mucous membranes Throat: Yes tonsils normal Eyes Conjunctivae: conjunctivae normal Pupils: Equal, round and reactive pupils present and Pupil accommodation reflex normal Direct Ophthalmoscopy: normal light reflex Neck Neck: No lymphadenopathy Thyroid: Thyroid normal Chest Chest palpation & inspection: normal inspection of the chest Resp Effort & Inspection: normal respiratory effort and no audible wheezes Auscultation: clear to auscultation bilaterally, no crackles, no wheezes and lung sounds not diminished Cardio Rate: regular rate Rhythm: regular rhythm Peripheral pulses: radial pulses present and dorsalis pedis present GI Palpation (GI): no masses Auscultation: normal bowel sounds and normoactive bowel sounds Rectal Exam - Female: deferred Skin General skin exam: no rashes or lesions noted Rashes: no rashes Neuro General: No confusion Cranial nerves: Yes Equal, round and reactive pupils present and Yes Normal hearing present Cognition (Neuro): normal cognition Gait exam (Neuro): Normal gait present Motor exam (neuro): 5/5 motor strength present throughout Deep tendon reflexes (DTR's): Right brachioradialis reflex intensity grade: 2+, Left brachioradialis reflex intensity grade: 2+, Right patellar reflex intensity grade: 2+ and Left patellar reflex intensity grade: 2+ Extrem General: No edema Assessment & Plan Assessment & Plan (1) Medicare annual wellness visit, subsequent: Code(s): Z00.00 - Encounter for general adult medical examination without abnormal findings (2) Biliary dyskinesia: Code(s): K82.8 - Other specified diseases of gallbladder (3) Type 2 diabetes mellitus with hyperglycemia: Comment: diet controlled, Dr. Seymour Code(s): E11.65 - Type 2 diabetes mellitus with hyperglycemia Qualifiers: Diabetes mellitus emt intermediate insulin use: without emt intermediate use Qualified Code(s): E11.65 - Type 2 diabetes mellitus with hyperglycemia (4) Hypertension: Code(s): I10 - Essential (primary) hypertension Qualifiers: Hypertension type: primary hypertension Qualified Code(s): I10 - Essential (primary) hypertension (5) Hypercholesterolemia: Code(s): E78.00 - Pure hypercholesterolemia, unspecified (6) Osteopenia: Code(s): M85.80 - Other specified disorders of bone density and structure, unspecified site (7) Mild cognitive impairment: Code(s): G31.84 - Mild cognitive impairment of uncertain or unknown etiology (8) Breast cancer screening by mammogram: Code(s): Z12.31 - Encounter for screening mammogram for malignant neoplasm of breast Plan - Continue observation of gallbladder condition; dietary modifications emphasized. Follow up with a surgeon scheduled. - Continue current antihypertensive regimen with losartan. - Monitor liver function; reconsider alcohol intake if complaints persist. - Follow-up on anemia with regular blood work. - Arrange neurologist referral for cognitive assessment. - Ensure compliance with scheduled mammograms and bone density studies. - Recommend flu and RSV precautions as advised. I discussed with the patient the status of her gallbladder dysfunction and the need for dietary management to minimize symptoms. I elaborated on the nature of her chronic anemia and current treatment approach. We talked about her current medication management for hypertension and hyperlipidemia, both of which are stable for now. I highlighted the importance of regular screenings, specifically mammograms and bone density studies, and agreed to arrange these. We talked about COVID-19 and season flu and RSV prevention. I advised continued moderate and careful alcohol consumption and stressed hydration and exercise as preventative measures. A referral to a neurologist for cognitive concerns noted during hospitalization was requested. - Follow a low-fat diet to manage gallbladder symptoms. - Maintain regular blood pressure and hyperlipidemia medications. - Attend scheduled mammogram and bone density screenings. - Monitor and limit alcohol consumption, if any. - Follow up with a surgeon as planned, and inform the clinic of any acute changes in health. - Stay hydrated and maintain regular physical activity. - Continue influenza precautions and consider use of masks in crowded settings. - Wait for the neurologist appointment for further cognitive assessment. - Contact the clinic if there are any concerns or symptoms worsen. Orders: Orders XR DEXA axial skeleton Today M81.0 - Age-related osteoporosis without current pathological fracture, M85.80 - Other specified disorders of bone density and structure, unspecified site Hemoglobin A1c 2 Months E11.65 - Type 2 diabetes mellitus with hyperglycemia Comprehensive Met. Panel 2 Months E11. - Type 2 diabetes mellitus with hyperglycemia Ferritin 2 Months E11. - Type 2 diabetes mellitus with hyperglycemia Complete Blood Count Auto Diff 2 Months E11.65 - Type 2 diabetes mellitus with hyperglycemia IRON PROFILE 2 Months E11.65 - Type 2 diabetes mellitus with hyperglycemia Vitamin B12 and Folate 2 Months E11.65 - Type 2 diabetes mellitus with hyperglycemia MM tomosynthesis screening BI Today Z12.31 - Encounter for screening mammogram for malignant neoplasm of breast Free T4 (Free Thyroxine) 2 Months E11.65 - Type 2 diabetes mellitus with hyperglycemia Thyroid Stimulating Hormone 2 Months E11.65 - Type 2 diabetes mellitus with hyperglycemia Lipid Panel 2 Months E11.65 - Type 2 diabetes mellitus with hyperglycemia, E78.00 - Pure hypercholesterolemia, unspecified Reticulocyte Count 2 Months E11.65 - Type 2 diabetes mellitus with hyperglycemia Vitamin D 25-OH Total 2 Months E11.65 - Type 2 diabetes mellitus with hyperglycemia Referrals Neurology Referral G31.84 - Mild cognitive impairment of uncertain or unknown etiology Neuropsychiatry Referral G31.84 - Mild cognitive impairment of uncertain or unknown etiology Quality Reporting (2019) Depression/Bipolar (159/160/161/177) PHQ-9: Total score: 2 Coding Level of Care Code Medicare Subsequent (G0439) Diagnoses Medicare annual wellness visit, subsequent Z00.00 Biliary dyskinesia K82.8 Type 2 diabetes mellitus with hyperglycemia, without long-term current use of insulin E11.65 Diabetes mellitus emt intermediate insulin use: without [facility] use Primary hypertension I10 Hypertension type: primary hypertension Hypercholesterolemia E78.00 Osteopenia M85.80 Mild cognitive impairment G31.84 Breast cancer screening by mammogram Z12.31 Additional Codes PHQ-9 - 97982 - PHQ-9 Billing: Yes ([id number])
--- OUTSIDE RECORDS SUMMARY | 2024-10-09 15:07 | XMS_ITS | Patient Health Record ---
Author Organization [facility] Address [address] [place] [address] Care Team Providers Care Bucket Turner Name Role Phone Carla Lacey MD Primary Care Provider Carlos Denton Unavailable [phone] ALLERGIES No Known Allergies REASON FOR REFERRAL No Information MEDICATIONS Medication SIG (Take, Route, Frequency, Duration) Notes Start Date End Date Status Rosuvastatin Calcium 40 MG TAKE 1 TABLET BY MOUTH DAILY Diagnosis Unavailable Oral for 30 Active Atenolol 25 MG TAKE 1 TABLET BY MIGUEL TH DAILY Oral for 90 Active Multivitamin Adult A ctive Aspirin Adult Low Dose 81 MG 1 tablet Orally Once a day for 30 day(s) Active IMMUNIZATIONS Vaccine Route Administration Date Status Comme nts Influenza Unknown 05/11/2021 Administered SOCIAL HISTORY Tobacco Use: Social History Observation Description Date Details (start date - stop date) Never Smoker NA - NA Sex Assigned At : Social History Observation Description Sex Assigned At Unknown Tobacco Use/Smoking Question Answer Notes Patient is a nonsmoker Alcohol Screen Question Answer Notes Did you have a drink contain ing alcohol in the past year? Yes How often did you have a dri nk containing alcohol in the past year? 2 to 3 times a week (3 points) How many drinks did you have on a typical day when you were drinking in the past year? 1 or 2 drinks (0 point) How often did you have 6 or more drinks on one occasion in the past year? Never (0 point) Points 3 Interpretation Positive PROBLEMS Problem Type ICD Code Onset Dates Problem Status W/U Status Risk SNOMED Code Notes Problem Encounter for screening for malignant neoplasm of colon (Z12.11) Active confirmed 143571118 Problem Preprocedural examination (Z01.818) Active confirmed [id number] Problem Long-term use of aspirin therapy (Z79.82) Active confirmed 299010670 Problem Diverticulosis of colon (K57.30) Active confirmed Diverticulosi s of colon (149244024) PLAN OF TREATMENT Future Test Test Name Order Date COLONOSCOPY 08/19/2021 Insurance Providers Payer Name Payer Address Payer Phone Subscriber Number Group Number Insured Name Patient Relationship to Insured Coverage Start Date Coverage End Date MEDICARE OF [place] [address] [place] [id number] [phone] [id number] MIRA REDDING Self - patient is the insured [facility] [address] [place] [phone] [id number] MIRA REDDING Self - patient is the insured MEDICAL (GENERAL) HISTORY Medical History History ICD Code HTN Denies SC,CVA,Lung disease,renal disease Negative screening colonoscopy in 05/2011 Hyperlipidemia Denies SC,CVA,Lung disease,renal disease Diet-controlled DM Surgical History Surgery Date(Month/Year) x 3
== END 2024-10-09 12:05 | disposition home or self-care (01) ==
PROVIDERS: PCP Internal Medicine; Visit Provider Internal Medicine
DX: Z00.00 Encounter for general adult medical examination without abnormal findings (principal); K82.8 Other specified diseases of gallbladder; E11.65 Type 2 diabetes mellitus with hyperglycemia; I10 Essential (primary) hypertension; E78.00 Pure hypercholesterolemia, unspecified; M85.80 Other specified disorders of bone density and structure, unspecified site; G31.84 Mild cognitive impairment of uncertain or unknown etiology; Z12.31 Encounter for screening mammogram for malignant neoplasm of breast

== ENCOUNTER → 2024-10-09 11:14 | Outpatient (BNVA) | payer MEDICARE, OTHER, SELFPAY | PROVIDERS: PCP Internal Medicine; Visit Provider Internal Medicine | DX: Z00.00 Encounter for general adult medical examination without abnormal findings (principal); K82.8 Other specified diseases of gallbladder; E11.65 Type 2 diabetes mellitus with hyperglycemia; E78.00 Pure hypercholesterolemia, unspecified; I10 Essential (primary) hypertension; M85.80 Other specified disorders of bone density and structure, unspecified site; G31.84 Mild cognitive impairment of uncertain or unknown etiology | CPT/HCPCS: 96127 ==

== ENCOUNTER 2024-10-15 10:35 | Outpatient (AMB) | payer MEDICARE, OTHER, SELFPAY ==
--- NOTE | 2024-10-15 10:37 | MHC.OFFVIS ---
Vital Signs 10/15/24 10:47 Height 5 ft 1 in Weight 128 lb 6 oz BMI 24.3 BP 191/92 H Blood Pressure Location Lt brachial Position Sitting Pulse 63 Intake Visit Reasons: cholelithiasis Intake Note: Patient is seen in office for ER follow up visit, following cholelithiasis. Pt c/o: denies any concerns at the moment, had an episode of nausea, vomit, abdominal pain ER/CT:09/25/24 HIDA: 09/26/24 Hoop Bender Tank Required: No Accompanied by: Family/Other Allergies No Known Allergies [No Known Allergies*] Allergy (Verified 10/15/24 10:46) HPI Comments Details: 74-year-old female patient presenting with her for evaluation of biliary dyskinesia. She was recently admitted to [facility] on 09/25/2024 with complaints of abdominal pain in the upper abdomen and subsequently discharged home on 09/26/2024. Patient's past medical history is significant for dementia, hypertension, and type 2 diabetes. She underwent an extensive workup including ultrasound of the abdomen which revealed no gallstones within the gallbladder. CT scan revealed a possible thickened wall of the gallbladder with pericholecystic fluid also seen on MRCP, both suggestive of acalculous cholecystitis. Subsequent HIDA scan revealed filling of the gallbladder however there was minimal emptying of the gallbladder with CCK stimulation. Findings were felt to be suggestive of biliary dyskinesia. Since patient's hospitalization she reports absolutely no abdominal pain, nausea or vomiting. She denies any prior history of similar symptoms. [facility] Medical History Breast cancer screening by mammogram Colon cancer screening Hypertension Hypercholesterolemia Type 2 diabetes mellitus with hyperglycemia Surgical History H/O colonoscopy History of section Family History Father Lung cancer Mother Myocardial infarction Social History Household Members: Spouse Housing: House Do you presently have visiting nurse or other home services: No Alcohol intake: current Alcohol intake frequency: holidays/special occasions only Alcohol type: wine Comment: Patient's daughter remains at bedside overnight. 2 glasses of wine 3 night Patient Tobacco Use Status: Former Tobacco user Tobacco use type: Cigarette Years Smoked: 37 years old stopped e-Cigarette/Vaping Use: Never Used Second Hand Smoke Exposure: No service: No Current occupational status: retired Cognitive needs: No Hearing needs: No Vision needs: No Review of Systems Const Unobtainable due to mental status Neuro Reports confusion Psych Reports confusion Physical Exam Vital Signs: Last Vital Signs Pulse 63 10/15/24 10:47 BP 191/92 H 10/15/24 10:47 BMI result Body Mass Index 24.3 Const General: no acute distress and confusion Nutritional Appearance: well nourished Orientation/consciousness: confusion HEENT Head: Yes normocephalic and Yes atraumatic Eyes Sclerae: sclerae normal Resp Effort & Inspection: normal respiratory effort, no audible wheezes, no cough and no respiratory distress GI Other: Soft, nondistended, nontender to deep palpation in all 4 quadrants. Negative Pendleton sign, normal to percussion. Skin Other: Warm, dry, normal color Neuro General: confusion Assessment & Plan Assessment & Plan (1) Biliary dyskinesia: Code(s): K82.8 - Other specified diseases of gallbladder Category: Medical Plan 74-year-old female patient with mild dementia presenting for evaluation of abdominal pain in the right upper quadrant. She was recently hospitalized for the abdominal pain and initially thought to have acalculous cholecystitis. Subsequent HIDA scan however revealed normal filling of the gallbladder with a delayed emptying suggestive of biliary dyskinesia. The patient currently is asymptomatic and denies any difficulty with abdominal pain, nausea or vomiting. I reviewed all the studies in detail with the patient and discussed biliary dyskinesia. I suggested observation at this time. Should her symptoms return or become more persistent, she is welcome return for consideration of a laparoscopic cholecystectomy. She and her expressed understanding and agreed with the plan. She will follow-up as needed. Coding Level of Care Code New Pt Level 4 (59937) Diagnoses Biliary dyskinesia K82.8
[2024-10-15 10:47] VITALS: BP 191/92; PULSE 63; BMI 24.3
== END 2024-10-15 11:03 | disposition home or self-care (01) ==
PROVIDERS: PCP Internal Medicine; Visit Provider Surgery
DX: K82.8 Other specified diseases of gallbladder (principal)
CPT/HCPCS: 99214

== ENCOUNTER → 2024-10-15 10:35 | Outpatient (BNVA) | payer MEDICARE, OTHER, SELFPAY | PROVIDERS: PCP Internal Medicine; Visit Provider Surgery | DX: K82.8 Other specified diseases of gallbladder (principal) | CPT/HCPCS: 99212 ==

== ENCOUNTER 2025-01-09 14:26 | Outpatient (AMB) | payer MEDICARE, OTHER, SELFPAY ==
[2025-01-09 14:28] VITALS: BP 144/62; PULSE 86; RESP 16; TEMP 36.3; O2SAT 99; BMI 24.3
--- NOTE | 2025-01-09 14:28 | A.OFFPC_ITS ---
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: No Accompanied by: Self / Same As Patient Allergies No Known Allergies [No Known Allergies*] Allergy (Verified 01/09/25 14:33) Tobacco use date assessed: 01/09/25 Fall risk assessment: No Falls in past year Last assessed Fall Risk: 01/09/25 Dental Screening Dental Screen Date: 01/09/25 Did you have a dental visit in the last 12 months?: Yes Did you have a dental problem in the last 6 months where you did not have access to dental care?: No Was dental information given to patient?: Patient has dentist [facility] Medical History Breast cancer screening by mammogram Colon cancer screening Hypertension Hypercholesterolemia Type 2 diabetes mellitus with hyperglycemia Surgical History H/O colonoscopy History of section Family History Father Lung cancer Mother Myocardial infarction Social History Household Members: Spouse Housing: House Do you presently have visiting nurse or other home services: No Alcohol intake: current Alcohol intake frequency: holidays/special occasions only Alcohol type: wine Comment: Patient's daughter remains at bedside overnight. 2 glasses of wine 3 night Patient Tobacco Use Status: Former Tobacco user Tobacco use type: Cigarette Years Smoked: 37 years old stopped e-Cigarette/Vaping Use: Never Used Second Hand Smoke Exposure: No service: No Current occupational status: retired Cognitive needs: No Hearing needs: No Vision needs: Yes (Glasses) Questionnaire Thrive Questionnaire Date Thrive assessed: 01/09/25 I am a: Patient What is your living situation today?: I have a steady place to live Within the past 12 months, did the food you bought not last and you didn't have the money to get more?: Never true Within the past 12 months, did you worry whether your food would run out before you got money to buy more?: Never true Do you have trouble paying for medicines?: No Do you have trouble getting transportation to medical appointments?: No Do you have trouble paying your heating and electricity bill?: No Do you have trouble taking care of your child, family member or friend?: No Do you have trouble with day-to-day activities such as bathing, preparing meals, shopping, managing finances, etc.?: No Are you currently unemployed and looking for a job?: No Are you interested in more education?: No Please select the resources that you would like help with: None Currently or been in a relationship where the following occur: No concerns reported THRIVE Score: 0 AUDIT C Alcohol Use Questionnaire (AUDIT-C) 1. How often do you have a drink containing alcohol?: 4 or more times a week (Glass of wine) 2. How many drinks containing alcohol do you have on a typical day when you are drinking?: 1 or 2 3. How often do you have six or more drinks on one occasion?: Never Total Score: 4 Score Reviewed/Action Taken: Yes EMANUEL-7 AMB Questionnaire EMANUEL-7 Date EMANUEL - 7 assessed: 10/20/22 Source: Developed by Drs. Calros Tucker, Patti Phillips, Lanre Jimnéez and colleagues, with an educational shawnee from [employer]. Physical exam (Primary Care) Vital Signs: Last Vital Signs Temp 97.3 F 01/09/25 14:28 Pulse 86 01/09/25 14:28 Resp 16 01/09/25 14:28 BP 144/62 H 01/09/25 14:28 Pulse Ox 99 01/09/25 14:28 Oxygen Delivery Method Room Air 01/09/25 14:28 BMI result Body Mass Index 24.3 Tobacco/Smoking Status: Tobacco use Status Tobacco use date assessed 01/09/25 01/09/25 14:30 Patient Tobacco Use Status Former Tobacco user 01/09/25 14:38 Tobacco use type Cigarette 01/09/25 14:38 e-Cigarette/Vaping Use Never Used 01/09/25 14:38 Thrive Assessment: Date of Thrive Assessment Date Thrive assessed 01/09/25 01/09/25 14:38 Currently or been in a relationship where the following occur: No concerns reported Const General: alert; No acute distress Eyes Conjunctivae: conjunctivae normal Resp Auscultation: clear to auscultation bilaterally Cardio Rate: regular rate Rhythm: regular rhythm GI Inspection: Yes normal to inspection Extrem General: Yes normal to inspection and No edema Immunizations tetanus-diphtheria toxoids-Td 2 Lf unit-2 Lf unit/0.5 mL IM suspension Performing Provider: Carla Lacey MD [facility] Administered by: JOSUE Nava on 01/09/25 15:24 Dose Route Admin Location Dispensed Lot Number Expiration Date [employer] 0.5 mL IM Right Deltoid 0.5 mL [id number] 11/08/26 09004-285-20 [employer] VIS Given Date VIS Provided VIS Publication Date 01/09/25 Single Vaccine 21 Eligibility Eligibility Date Funding Source Not [facility] Eligible 01/09/25 [facility] Coding Level of Care Code Est Pt Level 4 (92788) Complex EM visit Add On G2211 Diagnoses Biliary dyskinesia K82.8 Anemia, unspecified type D64.9 Anemia type: unspecified type Primary hypertension I10 Hypertension type: primary hypertension Hypercholesterolemia E78.00 Type 2 diabetes mellitus with hyperglycemia, without long-term current use of insulin E11.65 Diabetes mellitus press tender long goods insulin use: without press tender long goods use Assessment & Plan Assessment & Plan (1) Biliary dyskinesia: Code(s): K82.8 - Other specified diseases of gallbladder Category: Medical Plan: Patient has seen the surgeon and without the symptoms presently being monitored. (2) Anemia: Code(s): D64.9 - Anemia, unspecified Category: Medical Qualifiers: Anemia type: unspecified type Qualified Code(s): D64.9 - Anemia, uns pecified Plan: Patient needs a repeat blood work (3) Hypertension: Code(s): I10 - Essential (primary) hypertension Category: Medical Qualifiers: Hypertension type: primary hypertension Qualified Code(s): I10 - Essential (primary) hypertension Plan: Continue with blood pressure medication. Decrease salt intake and exercise on losartan 50 mg twice a day. ADVISE to check BP at home and record (4) Hypercholesterolemia: Code(s): E78.00 - Pure hypercholesterolemia, unspecified Category: Medical Plan: Avoid fried foods, chicken skin, eggs, butter margarine, pastries and meat. Be it pork or beef they have a lot of cholesterol LDL goal of less than 100 and triglyceride of less than 150. On rosuvastatin 40 mg once a day (5) Type 2 diabetes mellitus with hyperglycemia: Comment: diet controlled, Dr. Seymour Code(s): E11.65 - Type 2 diabetes mellitus with hyperglycemia Category: Medical Qualifiers: Diabetes mellitus shelter insulin use: without shelter use Qualified Code(s): E11.65 - Type 2 diabetes mellitus with hyperglycemia Plan: Decrease the amount of carbohydrate intake, pasta, bread, rice and potatoes are all sugar and that is aside from all the sweet stuff, remember that fruits are good but they are Sweet also. Plan History of Present Illness The patient is a 74-year-old female presenting with a follow-up for ongoing management of multiple chronic conditions, including diabetes mellitus, hypercholesterolemia, and essential hypertension. Her hypertension appears to be situationally elevated during doctor visits due to anxiety, with plans for home monitoring. She is being monitored for osteopenia and is due for her regular mammogram and bone density tests. Her last comprehensive labs revealed anemia, thrombocytopenia, leukopenia, and mild hyponatremia, with normal renal function and elevated liver enzymes. In recent months, she was evaluated for biliary dyskinesia, resulting in a plan to avoid surgical intervention unless pain returns, which has since resolved with dietary modifications. Health Maintenance - Mammogram scheduled as per routine screening recommendations. - Bone density test due for assessment of osteopenia. - Tetanus booster recommended as patient is overdue by two years. - Regular monitoring of blood pressure at home due to elevated levels noted during office visits. Social History - Retired, with reduced stress levels since leaving workforce. - Daughter works as a nurse and assists with medical monitoring. - Maintains a low-fat diet to aid in gallbladder function. - Regular home blood pressure monitoring by family. Review of Systems - Cardiovascular: Reports anxiety-induced elevated blood pressure during office visits. - Gastrointestinal: Denies current abdominal pain; history of biliary dyskinesia. - Neurologic: Denies numbness or other neurological symptoms. - General: Reports frequent stress in life, but generally managing well. Physical Exam - Respiratory- Lungs clear to auscultation. - Musculoskeletal- Patient appeared nervous, attributing to elevated blood pressure at 144 mmHg systolic. - Immunization record checked- Tetanus shot last given in 2012. Results - Labs: Anemia (Hemoglobin 10), thrombocytopenia (Platelets 27.8), leukopenia, mild hyponatremia, elevated liver enzymes. Plan The management of the patient's chronic conditions includes ongoing monitoring of hypertension with home blood pressure checks to avoid office-induced anxiety elevations. Losartan and rosuvastatin dosages are to be maintained. Blood work will be repeated to reassess hematologic and hepatic function, with particular attention to anemia and liver enzyme levels. Monitoring of biliary dyskinesia will continue owing to current asymptomatic status with dietary modifications. The tetanus booster is administered today, and upcoming mammogram and bone density screenings are scheduled as routine health checks. Continual health maintenance involves reinforcing a low-fat diet and promoting regular physical activity. Patient was informed and verbally consented to the use of an ambient scribe for clinic note documentation during this visit. Discussion Notes I discussed the importance of regulating her blood pressure, emphasizing monitoring at home to avoid situational hypertension observed during office visits. The rationale for continuing losartan and rosuvastatin therapy was reviewed concerning lipid and blood pressure control. We discussed dietary modifications for managing biliary dyskinesia, with additional low-fat diet recommendations given. The need for repeated blood tests was highlighted to monitor anemia and liver enzymes. For health maintenance, the need for her upcoming bone density test and mammogram was clarified, and vaccination updates were completed with a tetanus shot today. Consent was obtained for this booster, and the patient agreed with the outlined management plan. Patient Instructions - Continue home monitoring of blood pressure, especially when not visiting the office. - Maintain low-fat dietary habits to support gallbladder function. - Keep up with medications as prescribed, particularly losartan and rosuvastatin. - Complete lab work as soon as possible and attend scheduled mammogram and bone density tests. - Be aware of any return of pain associated with gallbladder function and report if symptoms recur. - Receive the tetanus booster today and ensure vaccinations are up-to-date. - Engage in regular physical activity consistent with her current capabilities. - Follow up with any new or concerning symptoms, particularly regarding anemia or changes in health. Orders: Orders Td State Immunization Today Z23 - Encounter for immunization
--- OUTSIDE RECORDS SUMMARY | 2025-01-09 14:37 | XMS_ITS | Patient Health Record ---
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 Name Role Phone Carla Lacey MD Primary Care Provider Carlos Denton Unavailable [phone] Allergies No Known Allergies Reason For Referral No Information Medications Medication SIG (Take, Route, Frequency, Duration) Notes Start Date End Date Status Rosuvastatin Calcium 40 MG TAKE 1 TABLET BY MOUTH DAILY Diagnosis Unavailable Oral for 30 Active Atenolol 25 MG TAKE 1 TABLET BY MIGUEL TH DAILY Oral for 90 Active Multivitamin Adult A ctive Aspirin Adult Low Dose 81 MG 1 tablet Orally Once a day for 30 day(s) Active Immunizations Vaccine Route Administration Date Status Comme nts Influenza Unknown 05/11/2021 Administered Social History Tobacco Use: Social History Observation Description Date Details (start date - stop date) Never Smoker NA - NA Tobacco Use/Smoking Question Answer Notes Patient is [...] Never (0 point) Points 3 Interpretation Positive Section Notes: Nonsmoker; Occ.wine Problems Problem Type SNOMED Code ICD Code Onset Dates Problem Status W/U Status Risk Notes Problem [id number] Encounter for screening for malignant neoplasm of colon (Z12.11) Active confirmed Problem 607658706070114 Preprocedural examination (Z01.818) Active confirmed Problem 118209832 Long-term use of aspirin therapy (Z79.82) Active confirmed Problem Diverticulosis of colon (543177272) Diverticulosis of colon (K57.30) Active confirmed Plan Of Treatment Future Test Test Name Order Date COLONOSCOPY 08/19/2021 Insurance Providers Payer Name Payer Address Payer Phone Subscriber Number Group Number Insured Name Patient Relationship to Insured Coverage Start Date Coverage End Date MEDICARE OF [place] [address] [place] [address] [id number] MIRA REDDING Self - patient is the insured [facility] [address] [place] [phone] [id number] MIRA REDDING Self - patient is the insured Medical (General) History Medical History History ICD Code HTN Denies OK,CVA,Lung disease,renal disease Negative screening colonoscopy in 05/2011 Hyperlipidemia Denies [place],CVA,Lung disease,renal disease Diet-controlled DM Surgical History Surgery Date(Month/Year) x 3
== END 2025-01-09 15:28 | disposition home or self-care (01) ==
LOC: HO.HMCH 14:26
PROVIDERS: PCP Internal Medicine; Visit Provider Internal Medicine
DX: E11.65 Type 2 diabetes mellitus with hyperglycemia (principal); K82.8 Other specified diseases of gallbladder; D64.9 Anemia, unspecified; I10 Essential (primary) hypertension; E78.00 Pure hypercholesterolemia, unspecified; Z23 Encounter for immunization

== ENCOUNTER → 2025-01-09 14:26 | Outpatient (BNVA) | payer MEDICARE, OTHER, SELFPAY | PROVIDERS: PCP Internal Medicine; Visit Provider Internal Medicine | DX: Z23 Encounter for immunization (principal); K82.8 Other specified diseases of gallbladder; D64.9 Anemia, unspecified; I10 Essential (primary) hypertension; E78.00 Pure hypercholesterolemia, unspecified; E11.65 Type 2 diabetes mellitus with hyperglycemia | CPT/HCPCS: 90471; 90714; 99212 ==

== ENCOUNTER 2025-03-30 17:23 | Inpatient (IN) | payer MEDICARE, OTHER, SELFPAY ==
--- NOTE | 2025-03-30 | ECG_ITS ---
Test Reason : hypoglycemia Blood Pressure : */* mmHG Vent. Rate : 79 BPM Atrial Rate : 79 BPM P-R Int : 186 ms QRS Dur : 80 ms QT Int : 402 ms P-R-T Axes : 18 -21 58 degrees QTcB Int : 460 ms Normal sinus rhythm Normal ECG When compared with ECG of 25-Sep-2024 12:16, No significant change was found Referred By: Tito Ellison Electronically Signed By: José Miguel Araiza
--- NOTE | ~2025-03-30 | CT_ITS ---
CLINICAL HISTORY: Hypoglycemia unexplained CT abdomen and pelvis with contrast Comparison: CT - CT ABDOMEN PELVIS W IV CON - 03/30/25 21:20 EDT Findings: The lung bases are clear. The gallbladder is within normal limits. No biliary ductal dilatation. Mild low-attenuation of the liver parenchyma suggestive of mild steatosis. The spleen, pancreas and adrenal glands are unremarkable. Enhancement of bilateral kidneys with no ureteral stones and no hydronephrosis or hydroureter. Bilateral nonspecific perinephric stranding. No bowel obstruction, pneumoperitoneum, or pneumatosis. Sigmoid colon diverticulosis. No free fluid or loculated fluid collection. Hazy increased attenuation in the bowel mesentery suggestive of mild mesenteric panniculitis/sclerosing mesenteritis. Very small hiatal hernia. Appendix is unremarkable. Punctate uterine calcification. Adnexal regions within normal limits. Urinary bladder is unremarkable. Atherosclerotic vascular disease with no aneurysm of the abdominal aorta. No acute fracture. Degenerative changes in the lumbar spine IMPRESSION: 1. 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 2. Sigmoid colon diverticulosis. 3. Mild hepatic steatosis. 4. Additional nonacute findings as described. This document has been electronically signed by: Gabriella Cárdenas MD on 03/30/2025 22:38:29
[2025-03-30 17:35] VITALS: BP 144/78; PULSE 109; PULSE 86; RESP 19; TEMP 36.4; O2SAT 96; O2SAT 99; BMI 25.5
--- NOTE | 2025-03-30 17:38 | ED.GENADULT ---
HPI - General Adult General Chief complaint: Weakness Stated complaint: hypogylcemia Time Seen by Provider: 03/30/25 17:32 Source: patient and family Mode of arrival: EMS Limitations: no limitations History of Present Illness ED Provider: HPI narrative: Patient is 74 years old with history of hypertension hyperlipidemia prediabetic been not eating well since yesterday had few drinks yesterday missed her supper and lunch today as she feels she is not hungry just prior to arrival patient has became lethargic with decreased responsiveness EMS on arrival check the blood sugar which was 38 was given 25 g of D10 by EMS blood glucose improved to 228 patient and has improved in orientation , denied any abdominal patient complaining of nausea and vomited after arrival in the ER Related Data Home Medications ?Medication ?Instructions ?Recorded ?Confirmed losartan 50 mg tablet 50 mg PO BID 09/25/24 10/09/24 aspirin 81 mg tablet,delayed 81 mg PO DAILY 10/09/24 10/09/24 release Previous Rx's ?Medication ?Instructions ?Recorded rosuvastatin 40 mg tablet 40 mg PO DAILY #90 tabs 02/11/25 Allergies Allergy/AdvReac Type Severity Reaction Status Date / Time No Known Allergies (No Known Allergy Verified 03/30/25 17:40 Allergies*) [facility] Past Medical History Medical History Breast cancer screening by mammogram Colon cancer screening Hypertension Hypercholesterolemia Type 2 diabetes mellitus with hyperglycemia Surgical History H/O colonoscopy History of section Family History Family History Father Lung cancer Mother Myocardial infarction Social History Social History Household Members: Spouse Housing: House Do you presently have visiting nurse or other home services: No Alcohol intake: current Alcohol intake frequency: holidays/special occasions only Alcohol type: wine Comment: Patient's daughter remains at bedside overnight. 2 glasses of wine 3 night Patient Tobacco Use Status: Former Tobacco user Tobacco use type: Cigarette Years Smoked: 37 years old stopped Smoked in Last 30 Days: No e-Cigarette/Vaping Use: Never Used Second Hand Smoke Exposure: No Use of substances other than those prescribed or required for medical reasons: No Advance Directives: No Advance Directives Information Provided: No Do you have a plan to hurt others: No Plan Patient : No service: No Current occupational status: retired Cognitive needs: No Hearing needs: No Vision needs: Yes (Glasses) Physical Exam ED Vital Signs: Vital Signs - 24 hr 03/30/25 17:35 03/30/25 20:28 03/30/25 22:16 Temperature 97.5 F 98.1 F 98.4 F Pulse Rate 109 H 84 90 Respiratory Rate 19 20 15 Blood Pressure 152/56 H 126/54 L Pulse Oximetry 99 99 97 Oxygen Delivery Method Room Air Room Air Room Air BMI result Body Mass Index 25.5 Medications Administered Generic Name Dose Route Start Last Admin Trade Name Broderick PRN Reason Stop Dose Admin Dextrose/Sodium Chloride 1,000 mls @ 80 mls/hr 03/30/25 23:45 03/31/25 02:20 D51/2ns IVCONT Infused .[id number] SERGIO Infusion Dextrose/Sodium Chloride 1,000 mls @ 100 mls/hr 03/31/25 01:30 03/31/25 02:20 D5ns IVCONT 100 mls/hr .Q10H SERGIO Administration Prednisone 40 mg 03/31/25 01:05 03/31/25 01:23 Prednisone 20 Mg Tablet PO 40 mg DAILY SERGIO Administration Sodium Chloride 3 ml 03/31/25 00:00 03/31/25 01:24 0.9 % Sodium Chloride Flush 3 Ml Syringe IVFLUSH Not Given QSHIFT SERGIO Discontinued Medications Generic Name Dose Route Start Last Admin Trade Name Broderick PRN Reason Stop Dose Admin Ceftriaxone Sodium 1 gm 03/30/25 21:33 03/30/25 21:43 Ceftriaxone Sodium 1 Gm Vial IVPUSH 03/30/25 21:34 1 gm ONCE ONE Administration Glucagon 1 mg 03/30/25 23:11 03/30/25 23:43 Glucagon Hcl 1 Mg Vial IVPUSH 03/30/25 23:12 1 mg ONCE ONE Administration Heparin Sodium (Porcine) 5,000 unit 03/31/25 00:00 03/31/25 01:23 Heparin Sodium,Porcine 5,000 Unit/Ml Vial SUBCUT 5,000 unit Q12H SERGIO Administration Sodium Chloride 1,000 mls @ 999 mls/hr 03/30/25 19:44 03/30/25 21:30 Ns IV 03/30/25 20:44 Infused .Q1H1M ONE Infusion Iohexol 85 ml 03/30/25 21:31 03/30/25 21:31 Iohexol 350 Mg/Ml 100 Ml Infus..Btl IV 03/30/25 21:32 85 ml ONCE ONE Administration Ondansetron HCl 4 mg 03/30/25 19:57 03/30/25 20:29 Ondansetron Hcl 4 Mg/2 Ml Vial IVPUSH 03/30/25 19:58 4 mg ONCE ONE Administration Ondansetron HCl 4 mg 03/30/25 23:02 03/30/25 23:18 Ondansetron Hcl 4 Mg/2 Ml Vial IVPUSH 03/30/25 23:03 4 mg ONCE ONE Administration Medical Decision Making Medical Decision Making [facility] Narrative: Patient nondiabetic hypoglycemia etiology not clear no signs of sepsis no signs of pancreatic involvement patient is not eating well, failure to thrive likely the cause for persistent hypoglycemia patient is started on IV dextrose will admit patient for further evaluation Differential Diagnosis Differential Diagnoses: The differential diagnosis associated with the presentation includes Failure to thrive/bacterial infection/poor oral intake Admission/Observation Consideration of admission/observation: Escalation of care including admission/observation considered Consult Healthcare Provider Management of the patient was discussed with: Hospitalist Lab Data [facility] Lab Attestation statement: I reviewed the patient's lab results. 03/30/25 17:56 03/30/25 17:56 Labs: Lab Results 03/30/25 03/30/25 03/30/25 Range/Units 17:34 17:56 18:15 WBC 6.1 (4.8-10.8) X10*3/uL RBC 3.09 L (4.20-5.50) X10*6/uL Hgb 10.5 L (12.0-16.0) g/dl Hct 29.7 L (37.0-47.0) % MCV 96.1 (80.0-98.0) fL MCH 34.0 H (27.0-33.0) pg MCHC 35.4 H (31.0-35.0) g/dl RDW 11.5 (11.0-16.0) % Plt Count 156 L D (160-400) X10*3/uL MPV 9.5 (9.4-12.3) fL Immature Gran % (Auto) 0.3 (0.0-0.4) % Neut % (Auto) 86.4 H (45-73) % Lymph % (Auto) 10.0 L (20-40) % [place] % (Auto) 2.6 (2-11) % Eos % (Auto) 0.0 (0-4) % Baso % (Auto) 0.7 (0-2) % Lymph # (Auto) 0.6 L (1.2-4.9) X10*3/uL [place] # (Auto) 0.2 (0.1-1.2) X10*3/uL Eos # (Auto) 0.0 (0.0-0.4) X10*3/uL Baso # (Auto) 0.0 (0.0-0.2) X10*3/uL Abs Immat Gran (auto) 0.02 (0.00-0.03) X10*3/uL Absolute Neuts (auto) 5.3 (2.0-8.3) x10*3/uL Absolute Nucleated RBC 0.000 (0.0-0.012) X10*3/uL Nucleated RBC % (auto) 0.0 (0.0-0.2) /100WBC Sodium 129 L (135-145) mmol/L Potassium 4.6 (3.3-5.1) mmol/L Chloride 95 L (96-108) mmol/L Carbon Dioxide 15 L (22-29) mmol/L Anion Gap 24 H (12-20) BUN 25 H (9-16) mg/dL Creatinine 1.08 (0.5-1.4) mg/dL Estim Creat Clear Calc 39.4 Estimated GFR 50 POC Glucose 144 H (60-115) mg/dL Random Glucose 167 H (60-115) mg/dL Lactic Acid (0.5-2.0) mmol/L Lactic Acid F/U @ 2Hr (0.5-2.0) mmol/L Calcium 8.9 (8.4-10.2) mg/dL Total Bilirubin 0.5 (0.0-1.0) mg/dL AST 46 H (5-31) U/L ALT 25 (0-31) U/L Alkaline Phosphatase 80 (39-117) U/L Troponin I High Sens 3.1 (<3.5-17.0) ng/L Total Protein 7.6 (6.5-8.0) g/dL Albumin 4.6 (3.5-5.0) g/dL Lipase 15 (8-78) U/L TSH 1.31 (0.32-4.0) uIU/mL Urine Color Urine Appearance Urine pH (5.0-9.0) Ur Specific [place] (1.005-1.025) Urine Protein (Neg-Trace) mg/dL Urine Glucose (UA) (Negative) mg/dL Urine Ketones (Negative) mg/dL Urine Blood (Negative) Urine Nitrite (Negative) Ur Leukocyte Esterase (Negative) Urine RBC (0-2) /HPF Urine WBC (0-5) /HPF Ur Squamous Epith Cells (0-2) /HPF Urine Bacteria (None Seen) Hyaline Casts (0-2) /LPF Urine Yeast Influenza Type A (PCR) NEGATIVE (Negative) Influenza Type B (PCR) NEGATIVE (Negative) RSV RNA Qual (PCR) NEGATIVE (Negative) SARS-CoV-2 RNA (RT-PCR) NEGATIVE (Negative) 03/30/25 03/30/25 03/30/25 Range/Units 20:04 20:10 21:05 WBC (4.8-10.8) X10*3/uL RBC (4.20-5.50) X10*6/uL Hgb (12.0-16.0) g/dl Hct (37.0-47.0) % MCV (80.0-98.0) fL MCH (27.0-33.0) pg MCHC (31.0-35.0) g/dl RDW (11.0-16.0) % Plt Count (160-400) X10*3/uL MPV (9.4-12.3) fL Immature Gran % (Auto) (0.0-0.4) % Neut % (Auto) (45-73) % Lymph % (Auto) (20-40) % [place] % (Auto) (2-11) % Eos % (Auto) (0-4) % Baso % (Auto) (0-2) % Lymph # (Auto) (1.2-4.9) X10*3/uL [place] # (Auto) (0.1-1.2) X10*3/uL Eos # (Auto) (0.0-0.4) X10*3/uL Baso # (Auto) (0.0-0.2) X10*3/uL Abs Immat Gran (auto) (0.00-0.03) X10*3/uL Absolute Neuts (auto) (2.0-8.3) x10*3/uL Absolute Nucleated RBC (0.0-0.012) X10*3/uL Nucleated RBC % (auto) (0.0-0.2) /100WBC Sodium (135-145) mmol/L Potassium (3.3-5.1) mmol/L Chloride (96-108) mmol/L Carbon Dioxide (22-29) mmol/L Anion Gap (12-20) BUN (9-16) mg/dL Creatinine (0.5-1.4) mg/dL Estim Creat Clear Calc Estimated GFR POC Glucose 121 H (60-115) mg/dL Random Glucose (60-115) mg/dL Lactic Acid 3.0 H* (0.5-2.0) mmol/L Lactic Acid F/U @ 2Hr (0.5-2.0) mmol/L Calcium (8.4-10.2) mg/dL Total Bilirubin (0.0-1.0) mg/dL AST (5-31) U/L ALT (0-31) U/L Alkaline Phosphatase (39-117) U/L Troponin I High Sens (<3.5-17.0) ng/L Total Protein (6.5-8.0) g/dL Albumin (3.5-5.0) g/dL Lipase (8-78) U/L TSH (0.32-4.0) uIU/mL Urine Color Yellow Urine Appearance Clear Urine pH 5.5 (5.0-9.0) Ur Specific [place] 1.020 (1.005-1.025) Urine Protein 30 (1+) H (Neg-Trace) mg/dL Urine Glucose (UA) 250 H (Negative) mg/dL Urine Ketones 15 (Negative) mg/dL Urine Blood Negative (Negative) Urine Nitrite Negative (Negative) Ur Leukocyte Esterase Small (1+) H (Negative) Urine RBC 0-2 (0-2) /HPF Urine WBC 6-10 (0-5) /HPF Ur Squamous Epith Cells 11-20 (0-2) /HPF Urine Bacteria 1+ (None Seen) Hyaline Casts 6-10 (0-2) /LPF Urine Yeast Present Influenza Type A (PCR) (Negative) Influenza Type B (PCR) (Negative) RSV RNA Qual (PCR) (Negative) SARS-CoV-2 RNA (RT-PCR) (Negative) 03/30/25 03/30/25 Range/Units 22:21 22:59 WBC (4.8-10.8) X10*3/uL RBC (4.20-5.50) X10*6/uL Hgb (12.0-16.0) g/dl Hct (37.0-47.0) % MCV (80.0-98.0) fL MCH (27.0-33.0) pg MCHC (31.0-35.0) g/dl RDW (11.0-16.0) % Plt Count (160-400) X10*3/uL MPV (9.4-12.3) fL Immature Gran % (Auto) (0.0-0.4) % Neut % (Auto) (45-73) % Lymph % (Auto) (20-40) % [place] % (Auto) (2-11) % Eos % (Auto) (0-4) % Baso % (Auto) (0-2) % Lymph # (Auto) (1.2-4.9) X10*3/uL [place] # (Auto) (0.1-1.2) X10*3/uL Eos # (Auto) (0.0-0.4) X10*3/uL Baso # (Auto) (0.0-0.2) X10*3/uL Abs Immat Gran (auto) (0.00-0.03) X10*3/uL Absolute Neuts (auto) (2.0-8.3) x10*3/uL Absolute Nucleated RBC (0.0-0.012) X10*3/uL Nucleated RBC % (auto) (0.0-0.2) /100WBC Sodium (135-145) mmol/L Potassium (3.3-5.1) mmol/L Chloride (96-108) mmol/L Carbon Dioxide (22-29) mmol/L Anion Gap (12-20) BUN (9-16) mg/dL Creatinine (0.5-1.4) mg/dL Estim Creat Clear Calc Estimated GFR POC Glucose 78 (60-115) mg/dL Random Glucose (60-115) mg/dL Lactic Acid (0.5-2.0) mmol/L Lactic Acid F/U @ 2Hr 1.6 (0.5-2.0) mmol/L Calcium (8.4-10.2) mg/dL Total Bilirubin (0.0-1.0) mg/dL AST (5-31) U/L ALT (0-31) U/L Alkaline Phosphatase (39-117) U/L Troponin I High Sens (<3.5-17.0) ng/L Total Protein (6.5-8.0) g/dL Albumin (3.5-5.0) g/dL Lipase (8-78) U/L TSH (0.32-4.0) uIU/mL Urine Color Urine Appearance Urine pH (5.0-9.0) Ur Specific [place] (1.005-1.025) Urine Protein (Neg-Trace) mg/dL Urine Glucose (UA) (Negative) mg/dL Urine Ketones (Negative) mg/dL Urine Blood (Negative) Urine Nitrite (Negative) Ur Leukocyte Esterase (Negative) Urine RBC (0-2) /HPF Urine WBC (0-5) /HPF Ur Squamous Epith Cells (0-2) /HPF Urine Bacteria (None Seen) Hyaline Casts (0-2) /LPF Urine Yeast Influenza Type A (PCR) (Negative) Influenza Type B (PCR) (Negative) RSV RNA Qual (PCR) (Negative) SARS-CoV-2 RNA (RT-PCR) (Negative) Independent Interpretation I performed an independent interpretation of an: EKG and CT Scan Interpretation: Normal sinus rhythm heart rate 79 beats per minute normal interval normal axis no acute ST-T no acute ischemia Radiology Impression Discussion of test interpretation with radiology: I have reviewed the radiologist's reading. Radiologist Impression: MPRESSION: 1. 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 2. Sigmoid colon diverticulosis. 3. Mild hepatic steatosis. 4. Additional nonacute findings as described. This document has been electronically signed by: Gabriella Cárdenas MD on 03/30/2025 22:38:29 Discharge Plan Discharge Clinical Impression: Non-diabetic hypoglycemia, Adult failure to thrive Patient Disposition: Admitted As Inpatient
[2025-03-30 17:44] LABS: Glucose, Whole Blood 144 mg/dL (60-115)
[2025-03-30 18:08] LABS: MANUAL DIFF FLAG NO
[2025-03-30 18:29] LABS: Troponin-I High Sensitivity 3.1 ng/L (<3.5-17.0)
[2025-03-30 18:30] LABS: Alanine Aminotransferase 25 U/L (0-31); Albumin Level 4.6 g/dL (3.5-5.0); Alkaline Phosphatase 80 U/L (39-117); Anion Gap 24 (12-20); Aspartate Amino Transferase 46 U/L (5-31); Blood Urea Nitrogen 25 mg/dL (9-16); Calcium 8.9 mg/dL (8.4-10.2); Carbon Dioxide 15 mmol/L (22-29); Chloride 95 mmol/L (96-108); Creatinine Clr Calc Pharmacy 39.4; Estimated Glomerular Filt Rate 50; Lipase 15 U/L (8-78); Potassium 4.6 mmol/L (3.3-5.1); Sodium 129 mmol/L (135-145); Total Protein 7.6 g/dL (6.5-8.0)
[2025-03-30 18:33] LABS: Hematocrit 29.7 % (37.0-47.0); Hemoglobin 10.5 g/dl (12.0-16.0); Imm Gran Abs Auto 0.02 X10*3/uL (0.00-0.03); Imm Gran Pct Auto 0.3 % (0.0-0.4); Lymphocytes Absolute Auto 0.6 X10*3/uL (1.2-4.9); Mean Corpuscular HGB Conc 35.4 g/dl (31.0-35.0); Mean Corpuscular Hemoglobin 34.0 pg (27.0-33.0); Mean Corpuscular Volume 96.1 fL (80.0-98.0); NRBC Abs Auto 0.000 X10*3/uL (0.0-0.012); NRBC Pct Auto 0.0 /100WBC (0.0-0.2); Platelet Count 156 X10*3/uL (160-400); Red Blood Count 3.09 X10*6/uL (4.20-5.50); White Blood Count 6.1 X10*3/uL (4.8-10.8)
[2025-03-30 18:45] LABS: Thyroid Stimulating Hormone 1.31 uIU/mL (0.32-4.0)
[2025-03-30 19:25] LABS: Resp Syncy Virus RNA Qual PCR NEGATIVE (Negative); SARS COV2 PCR INHOUSE NEGATIVE (Negative)
[2025-03-30 20:14] LABS: Glucose, Whole Blood 121 mg/dL (60-115)
[2025-03-30 20:28] VITALS: BP 152/56; PULSE 84; RESP 20; TEMP 36.7; O2SAT 99
[2025-03-30 21:13] LABS: Appearance Urine Clear; Glucose Urine UA 250 mg/dL (Negative); PH 5.5 (5.0-9.0); Specific Gravity - Urine 1.020 (1.005-1.025); UMIC TRIGGER UACC YES
[2025-03-30 21:29] LABS: UACC Culture Trigger YES
[2025-03-30] MEDS: iohexoL 350 MG/ML 100 ML INFUS..BTL 85 ML IV (21:31)
[2025-03-30 22:09] LABS: Reflex Lactate? Lactic Acid Added
[2025-03-30 22:16] VITALS: BP 126/54; PULSE 90; RESP 15; TEMP 36.9; O2SAT 97
[2025-03-30 22:40] LABS: ~Lactic Acid-LAB USE ONLY 1.6 mmol/L (0.5-2.0)
[2025-03-30 23:02] LABS: Glucose, Whole Blood 78 mg/dL (60-115)
--- NOTE | 2025-03-30 23:21 | PC.NURSE ---
This RN assumed pt care @ 2300. Pt a&ox4, no signs of distress. Pt denies pain at this time Pt reports n/v Pt medicated per mar Pt requesting drink Pts at bedside Plan of care ongoing.
[2025-03-30] MEDS: Dextrose 5 % and 0.45 % NaCl 1,000 ML 80 ML IVCONT (23:50)
--- NOTE | 2025-03-30 23:59 | P.HPHOSP_ITS ---
History of Present Illness Date of Service: 03/30/25 Attending physician on admission: Sydni Meza Chief Complaint: AMS Patient is a 74-year-old female with past medical history biliary dyskinesia, choledochal cholelithiasis, diverticulosis, dementia, hyperlipidemia, osteopenia, hypertension presented to the emergency room brought in by ambulance with report of decreased responsiveness per patient's . Patient does not recall the events from earlier but did report almost 2 days of persistent intermittent epigastric to the right upper quadrant belly pain. Patient denied any chest pain, shortness of breath at rest, nausea or vomiting. Patient states she has had this pain in the past and was seen by a specialist for this. EMS noted blood sugar was 38 mg/dL and patient is not an active diabetic on insulin or oral medications. Last hemoglobin A1c was in 2022 and was 5.8. Patient did receive 25 g of D10 and glucose came up to 228. While in the emergency room patient's blood sugars wavered between 144 and 78 mg/dL. Patient now continues on a D10 infusion at 75 mL/hour. Patient continues to report abdominal pain again in the midepigastric area to the right upper quadrant. Patient denies any issues with constipation, diarrhea or reflux. Patient's lactate on arrival was 3.0 and after fluids down to 1.6. Patient has no leukocytosis or evidence of blood loss with a baseline hemoglobin of 10.5. AST elevated at 46, ALT normal, total bilirubin 0.5 with an alk-phos of 80. Patient did have evidence of hyponatremia with a metabolic acidosis on BNP. Renal function noted a GFR of 50 with a creatinine clearance of 39.4 and a creatinine of 1.08. This is close to patient's usual baseline. Patient denies following with a campaign specialist on a regular basis. Patient underwent a CT of the abdomen and pelvis and was found to have mild mesenteric panniculitis/sclerosing mesenteritis. The pancreas was described as being normal in presentation. Evidence of sigmoid colon diverticulosis without diverticulitis evident. Mild hepatic steatosis present. Punctate uterine calcification also present. Patient was seen by Dr. Padilla after having a HIDA scan in September of 2024. Patient had been diagnosed with biliary dyskinesia at that time. After review of the surgeon recommended observation but if patient became symptomatic again he would recommend a laparoscopic cholecystectomy. Patient denies any current tobacco use, drinks usually 1 glass of wine almost every day and denies use of marijuana or illicit drugs. Review of Systems 2 Review of Systems: Patient denies any chest pain, shortness of breath at rest or with exertion, current nausea or vomiting. Patient is reporting midepigastric and right upper quadrant abdominal pain. Patient denies any constipation or diarrhea. Patient denies any fever, chills or night sweats. Patient denies any liver issues including hepatitis. [facility] Medical History Breast cancer screening by mammogram Colon cancer screening Hypertension Hypercholesterolemia Type 2 diabetes mellitus with hyperglycemia Cognitive capacity: Alert and orientated x3 forgetful with poor memory Functional capacity: independent ambulation Patient : No Family History Father Lung cancer Mother Myocardial infarction Surgical History H/O colonoscopy History of section Social History Household Members: Spouse Housing: House Do you presently have visiting nurse or other home services: No Alcohol intake: current Alcohol intake frequency: holidays/special occasions only Alcohol type: wine Comment: Patient's daughter remains at bedside overnight. 2 glasses of wine 3 night Patient Tobacco Use Status: Former Tobacco user Tobacco use type: Cigarette Years Smoked: 37 years old stopped Smoked in Last 30 Days: No e-Cigarette/Vaping Use: Never Used Second Hand Smoke Exposure: No Use of substances other than those prescribed or required for medical reasons: No Advance Directives: No Advance Directives Information Provided: No Do you have a plan to hurt others: No Plan Patient : No service: No Current occupational status: retired Cognitive needs: No Hearing needs: No Vision needs: Yes (Glasses) Ebola Risk: Travel/Contact With Anyone From Affected Area/s: No Has Patient Experienced Ebola Symptoms: No Meds Allergies Allergy/AdvReac Type Severity Reaction Status Date / Time No Known Allergies (No Known Allergy Verified 03/30/25 17:40 Allergies*) Active Medications: Current Medications Dextrose/Sodium Chloride (D51/2ns) 1,000 mls @ 80 mls/hr IVCONT .[id number] SERGIO Last Admin: 03/30/25 23:50 Dose: 80 mls/hr Home Medications ?Medication ?Instructions ?Recorded ?Confirmed ?Last Taken ?Type losartan 50 mg tablet 50 mg PO BID 09/25/24 Unknown History aspirin 81 mg tablet,delayed 81 mg PO DAILY 10/09/24 0 10/09/24 Unknown History release Physical Exam 2 Vital Signs and Narrative: Vital Signs: Last Vital Signs Temp 98.4 F 03/30/25 22:16 Pulse 90 03/30/25 22:16 Resp 15 03/30/25 22:16 BP 126/54 L 03/30/25 22:16 Pulse Ox 97 03/30/25 22:16 O2 Del Method Room Air 03/30/25 22:16 BMI result Body Mass Index 25.5 Alert and orientated X3, recall is fair Neuro: CN II-X11 intact, no deficits, visual acuity intact EYES: PERRLA, EOM intact, sclerae nonicteric, conjunctiva pink ENT: hearing intact, no issues with swallowing, uvula midline, lips moist, nares patent no epistaxis Cardiac: S1 S2 RRR, no murmur, no JVD, no edema in Lower ext Pulmonary: lungs clear to auscultation B Abdominal: BS active in all 4 quadrants, mild tenderness right upper quadrant mid epigastric area, no rebound or guarding noted MSK: strength 4/5 upper and lower extremities : no CVA tenderness no bladder distension Extremities: no edema in lower extremities, PT and DP pulses palpable +2 Psych: mood stable, judgement and insight fair Skin: Blotchy red rash on face only, mild bruising noted on both hands Results Labs 03/30/25 17:56 03/30/25 17:56 Labs: Laboratory Results - last 24 hr 03/30/25 03/30/25 03/30/25 17:34 17:56 18:15 MCV 96.1 MCH 34.0 H MCHC 35.4 H RDW 11.5 Plt Count 156 L D MPV 9.5 Immature Gran % (Auto) 0.3 Neut % (Auto) 86.4 H Lymph % (Auto) 10.0 L [place] % (Auto) 2.6 Eos % (Auto) 0.0 Baso % (Auto) 0.7 Lymph # (Auto) 0.6 L [place] # (Auto) 0.2 Eos # (Auto) 0.0 Baso # (Auto) 0.0 Abs Immat Gran (auto) 0.02 Absolute Neuts (auto) 5.3 Absolute Nucleated RBC 0.000 Nucleated RBC % (auto) 0.0 Anion Gap 24 H Estim Creat Clear Calc 39.4 Estimated GFR 50 POC Glucose 144 H Random Glucose 167 H Lactic Acid Lactic Acid F/U @ 2Hr Calcium 8.9 Total Bilirubin 0.5 AST 46 H ALT 25 Alkaline Phosphatase 80 Total Protein 7.6 Albumin 4.6 Lipase 15 TSH 1.31 Urine Color Urine Appearance Urine pH Ur Specific [place] Urine Protein Urine Glucose (UA) Urine Ketones Urine Blood Urine Nitrite Ur Leukocyte Esterase Urine RBC Urine WBC Ur Squamous Epith Cells Urine Bacteria Hyaline Casts Urine Yeast Influenza Type A (PCR) NEGATIVE Influenza Type B (PCR) NEGATIVE RSV RNA Qual (PCR) NEGATIVE SARS-CoV-2 RNA (RT-PCR) NEGATIVE 03/30/25 03/30/25 03/30/25 20:04 20:10 21:05 MCV MCH MCHC RDW Plt Count MPV Immature Gran % (Auto) Neut % (Auto) Lymph % (Auto) [place] % (Auto) Eos % (Auto) Baso % (Auto) Lymph # (Auto) [place] # (Auto) Eos # (Auto) Baso # (Auto) Abs Immat Gran (auto) Absolute Neuts (auto) Absolute Nucleated RBC Nucleated RBC % (auto) Anion Gap Estim Creat Clear Calc Estimated GFR POC Glucose 121 H Random Glucose Lactic Acid 3.0 H* Lactic Acid F/U @ 2Hr Calcium Total Bilirubin AST ALT Alkaline Phosphatase Total Protein Albumin Lipase TSH Urine Color Yellow Urine Appearance Clear Urine pH 5.5 Ur Specific [place] 1.020 Urine Protein 30 (1+) H Urine Glucose (UA) 250 H Urine Ketones 15 Urine Blood Negative Urine Nitrite Negative Ur Leukocyte Esterase Small (1+) H Urine RBC 0-2 Urine WBC 6-10 Ur Squamous Epith Cells 11-20 Urine Bacteria 1+ Hyaline Casts 6-10 Urine Yeast Present Influenza Type A (PCR) Influenza Type B (PCR) RSV RNA Qual (PCR) SARS-CoV-2 RNA (RT-PCR) 03/30/25 03/30/25 22:21 22:59 MCV MCH MCHC RDW Plt Count MPV Immature Gran % (Auto) Neut % (Auto) Lymph % (Auto) [place] % (Auto) Eos % (Auto) Baso % (Auto) Lymph # (Auto) [place] # (Auto) Eos # (Auto) Baso # (Auto) Abs Immat Gran (auto) Absolute Neuts (auto) Absolute Nucleated RBC Nucleated RBC % (auto) Anion Gap Estim Creat Clear Calc Estimated GFR POC Glucose 78 Random Glucose Lactic Acid Lactic Acid F/U @ 2Hr 1.6 Calcium Total Bilirubin AST ALT Alkaline Phosphatase Total Protein Albumin Lipase TSH Urine Color Urine Appearance Urine pH Ur Specific [place] Urine Protein Urine Glucose (UA) Urine Ketones Urine Blood Urine Nitrite Ur Leukocyte Esterase Urine RBC Urine WBC Ur Squamous Epith Cells Urine Bacteria Hyaline Casts Urine Yeast Influenza Type A (PCR) Influenza Type B (PCR) RSV RNA Qual (PCR) SARS-CoV-2 RNA (RT-PCR) ECG Attestation: I personally reviewed and interpreted this ECG as follows: (Normal sinus rhythm QTC 460) Prior ECG tracings: available for review Imaging Radiologist's Impressions: CT ABD PELVIS Findings: The lung bases are clear. The gallbladder is within normal limits. No biliary ductal dilatation. Mild low-attenuation of the liver parenchyma suggestive of mild steatosis. The spleen, pancreas and adrenal glands are unremarkable. Enhancement of bilateral kidneys with no ureteral stones and no hydronephrosis or hydroureter. Bilateral nonspecific perinephric stranding. No bowel obstruction, pneumoperitoneum, or pneumatosis. Sigmoid colon diverticulosis. No free fluid or loculated fluid collection. Hazy increased attenuation in the bowel mesentery suggestive of mild mesenteric panniculitis/sclerosing mesenteritis. Very small hiatal hernia. Appendix is unremarkable. Punctate uterine calcification. Adnexal regions within normal limits. Urinary bladder is unremarkable. Atherosclerotic vascular disease with no aneurysm of the abdominal aorta. No acute fracture. Degenerative changes in the lumbar spine IMPRESSION: 1. 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 2. Sigmoid colon diverticulosis. 3. Mild hepatic steatosis. 4. Additional nonacute findings as described. Assessment and Plan (1) Hypoglycemia: Status: Acute Plan Patient is a 74-year-old female with past medical history biliary dyskinesia, choledochal cholelithiasis, diverticulosis, dementia, hyperlipidemia, osteopenia, hypertension presents to the emergency room with complaints of decreased responsiveness and hypoglycemia along with almost 2 days of abdominal pain. Hypoglycemia Blood glucose is slowly improving on D10 infusion. Changing to D5 with 0.9 normal saline noting hyponatremia and metabolic acidosis. Patient has not been able to tolerate p.o. intake, NPO at this time Patient is not a known diabetic on diabetic medication We will check hemoglobin A1c, last 1 was 2022 and was 5.8 Glucose checks q.1 hour, after 2 consecutive blood glucose is greater than 150 can change to every 2 hours UA negative for ketones Metabolic acidosis BMP in the a.m. Using IV fluids currently to correct, consider bicarb in the a.m. if BMP is still abnormal Hyponatremia Sodium 129 Maybe due to over hydration prior to admission as patient was not able to eat much. Patient also on D10 for hypoglycemia. Blood glucose levels are stabilizing and changing fluids to D5 was 0.9 normal saline at 100 mL/hour. Urine studies ordered BMP in AM ABD pain/ history of biliary dyskinesia (09/2024)/ active mild mesenteric panniculitis/sclerosing mesenteritis. LA 3.0 on arrival, now 1.6 - abdominal pain mid epigastric, RUQ persists intermittently Surgical consult ordered as patient was followed by Dr. Padilla back in September of 2024. If patient's symptoms persisted recommending laparoscopic cholecystectomy After review with the attending Dr. Meza, starting prednisone 40 mg daily for mild mesenteric panniculitis/sclerosing mesenteritis. Patient deferred need for IV narcotics for pain control at this time, IV Tylenol PRN NPO AST mildly elevated, otherwise LFTs are stable including total bilirubin DVT prophylaxis: Held in case procedure/surgery is indicated Med rec pending Full Code status Quality Stroke Does the patient have a stroke diagnosis?: No Reason for No Anti-thrombotic by Day Two: N/A - Med Ordered VTE Prior VTE?: No VTE Risk Level:: Medical - moderate - high VTE Device Contraindication: N/A - Device Ordered VTE Drug Contraindication: N/A - Med Ordered
[2025-03-31 00:25] LABS: Glucose, Whole Blood 136 mg/dL (60-115)
--- NOTE | 2025-03-31 01:20 | PC.NURSE ---
Provider req pt PO challenge Pt given crackers Plan of care ongoing.
[2025-03-31 01:28] VITALS: BP 156/54; PULSE 90; RESP 18; O2SAT 99
[2025-03-31 02:35] LABS: Glucose, Whole Blood 145 mg/dL (60-115)
[2025-03-31 04:29] VITALS: BP 151/56; PULSE 78; RESP 12; TEMP 36.8; O2SAT 98
[2025-03-31 05:09] LABS: Glucose, Whole Blood 170 mg/dL (60-115)
[2025-03-31 06:03] LABS: Hematocrit 26.9 % (37.0-47.0); Hemoglobin 10.1 g/dl (12.0-16.0); Imm Gran Abs Auto 0.02 X10*3/uL (0.00-0.03); Imm Gran Pct Auto 0.3 % (0.0-0.4); Lymphocytes Absolute Auto 0.3 X10*3/uL (1.2-4.9); Mean Corpuscular HGB Conc 37.5 g/dl (31.0-35.0); Mean Corpuscular Hemoglobin 36.1 pg (27.0-33.0); Mean Corpuscular Volume 96.1 fL (80.0-98.0); NRBC Abs Auto 0.000 X10*3/uL (0.0-0.012); NRBC Pct Auto 0.0 /100WBC (0.0-0.2); Platelet Count 151 X10*3/uL (160-400); Red Blood Count 2.80 X10*6/uL (4.20-5.50); SCAN SMEAR FLAG 1; White Blood Count 5.8 X10*3/uL (4.8-10.8)
[2025-03-31 06:10] LABS: Glucose, Whole Blood 186 mg/dL (60-115)
[2025-03-31 06:15] LABS: MANUAL DIFF FLAG SCAN
[2025-03-31 06:25] LABS: Anion Gap 20 (12-20); Blood Urea Nitrogen 23 mg/dL (9-16); Calcium 8.8 mg/dL (8.4-10.2); Carbon Dioxide 17 mmol/L (22-29); Chloride 98 mmol/L (96-108); Creatinine Clr Calc Pharmacy 39.1; Estimated Glomerular Filt Rate 49; Potassium 4.2 mmol/L (3.3-5.1); Sodium 131 mmol/L (135-145)
[2025-03-31 06:41] VITALS: BP 159/96; PULSE 87; RESP 16; O2SAT 97
[2025-03-31 06:53] LABS: Osmolality, Serum 279 mosm/kg (281-305)
[2025-03-31 07:20] LABS: Hemoglobin A1C 92.2812 umol/L; Total Hemoglobin (HGBA1C) 2679.3022 umol/L
[2025-03-31 07:46] LABS: Glucose, Whole Blood 229 mg/dL (60-115)
--- NOTE | 2025-03-31 09:06 | PM.CNGS ---
History of Present Illness Consult details Consult date: 03/31/25 <Kym Oleary PA-C - Last Filed: 03/31/25 10:04> Requesting physician: Nicolasa Greer <RUCHI Field Last Filed: 03/31/25 10:04> Narrative: 74 year old female with history of hypertension, hyperlipidemia, prediabetic, dementia who was brought in by EMS for lethargy, decreased responsiveness yesterday. Blood sugar on arrival was 38. She seems to be a poor historian. She reports she had some epigastric pain that started yesterday. It was mild in nature. She reports lack of appetite but this is usual for her. She denies nausea, vomiting, diarrhea, fevers, chills, change in skin color. She had a history of biliary dyskinesia found on work up for abdominal pain earlier this year. She however had no persistent symptoms and therefore observation was recommended. In the ED, CT scan abd pelvis was obtained which did not demonstrate any acute intraabdominal findings. No gallbladder distention, wall thickening or pericholecystic fluid. She feels better currently and would like to eat. She was admitted to the medical service for further treatment of her hypoglycemia, metabolic acidosis, hyponatremia. General surgery was consulted for her abdominal pain in view of her history of biliary dyskinesia. She feels better this morning and is asking to eat. <RUCHI Field Last Filed: 03/31/25 10:04> Review of Systems Review of Systems: Yes all other systems are reviewed and are negative <RUCHI Field Last Filed: 03/31/25 10:04> [facility] Past Medical History Medical History: Medical History Breast cancer screening by mammogram Colon cancer screening Hypertension Hypercholesterolemia Type 2 diabetes mellitus with hyperglycemia <RUCHI Field Last Filed: 03/31/25 10:04> Family History Family History: Family History Father Lung cancer Mother Myocardial infarction <RUCHI Field Last Filed: 03/31/25 10:04> Surgical History Surgical History: Surgical History H/O colonoscopy History of section <RUCHI Field Last Filed: 03/31/25 10:04> Social History Social History: Social History Household Members: Spouse Housing: House Do you presently have visiting nurse or other home services: No Alcohol intake: current Alcohol intake frequency: holidays/special occasions only Alcohol type: wine Comment: Patient's daughter remains at bedside overnight. 2 glasses of wine 3 night Patient Tobacco Use Status: Former Tobacco user Tobacco use type: Cigarette Years Smoked: 37 years old stopped e-Cigarette/Vaping Use: Never Used Second Hand Smoke Exposure: No service: No Current occupational status: retired Cognitive needs: No Hearing needs: No Vision needs: Yes (Glasses) <Kym Oleary PA-C - Last Filed: 03/31/25 10:04> Travel History Ebola Risk: Travel/Contact With Anyone From Affected Area/s: No <Kym Oleary PA-C - Last Filed: 03/31/25 10:04> Has Patient Experienced Ebola Symptoms: No <RUCHI Field Last Filed: 03/31/25 10:04> Meds Allergies/Adverse reactions: Allergies Allergy/AdvReac Type Severity Reaction Status Date / Time No Known Allergies (No Known Allergy Verified 03/30/25 17:40 Allergies*) <RUCHI Field Last Filed: 03/31/25 10:04> Active Medications: Current Medications Acetaminophen (Acetaminophen 325 Mg Tablet) 650 mg PO Q6H PRN PRN Reason: Pain, Mild 1-3,fever,headache Albuterol/Ipratropium (Albuterol/Iprat 2.5/0.5mg 3 Ml Ampul.Neb) 3 ml INHALE Q4H PRN PRN Reason: Shortness of Breath/Wheezing Calcium Carbonate (Calcium Carbonate 750 Mg Tab.Chew) 750 mg PO Q4H PRN PRN Reason: Heartburn Dextrose/Sodium Chloride (D5ns) 1,000 mls @ 100 mls/hr IVCONT .Q10H PENDING SALE TO [facility] Last Admin: 03/31/25 02:20 Dose: 100 mls/hr Acetaminophen (Ofirmev) 1,000 mg in 100 mls @ 400 mls/hr IV Q6H PRN PRN Reason: Pain, Severe (Pain Scale 7-10) Insulin Human Lispro (Insulin Lispro 100 Unit/Ml 3 Ml Vial) 0 unit SUBCUT QIDACHS PENDING SALE TO [facility]; Protocol Magnesium Hydroxide (Milk Of Magnesia 30 Ml Oral.Susp) 30 ml PO DAILY PRN PRN Reason: Constipation Melatonin (Melatonin 3 Mg Tablet) 6 mg PO BEDTIME PRN PRN Reason: Insomnia Ondansetron HCl (Ondansetron Hcl 4 Mg/2 Ml Vial) 4 mg IVPUSH Q8H PRN PRN Reason: Nausea and Vomiting Polyethylene Glycol (Polyethylene Glycol 3350 17 Gm Powd.Pack) 17 gm PO DAILY PRN PRN Reason: Constipation Prednisone (Prednisone 20 Mg Tablet) 40 mg PO DAILY PENDING S[facility] TO [facility] Last Admin: 03/31/25 01:23 Dose: 40 mg Senna (Sennosides 8.6 Mg Tablet) 17.2 mg PO BEDTIME PENDING SALE TO [facility] Sodium Chloride (0.9 % Sodium Chloride Flush 3 Ml Syringe) 3 ml IVFLUSH QSHIFT PENDING SALE TO [facility] Last Admin: 03/31/25 07:07 Dose: Not Given <Kym Oleary PA-C - Last Filed: 03/31/25 10:04> Home medications: Home Medications ?Medication ?Instructions ?Recorded ?Confirmed ?Last Taken ?Type losartan 50 mg tablet 50 mg PO BID 09/25/24 03/31/25 03/29/25 History aspirin 81 mg tablet,delayed 81 mg PO DAILY 10/09/24 03/31/25 03/29/25 History release cyanocobalamin (vitamin B-12) 1,000 mcg PO DAILY 03/31/25 03/31/25 03/29/25 History 1,000 mcg tablet (Vitamin B-12) <Kym Oleary PA-C - Last Filed: 03/31/25 10:04> Physical Exam Vital Signs: Vital Signs: Last Vital Signs Temp 98.2 F 03/31/25 04:29 Pulse 87 03/31/25 06:41 Resp 16 03/31/25 06:41 BP 159/96 H 03/31/25 06:41 Pulse Ox 97 03/31/25 06:41 O2 Del Method Room Air 03/31/25 06:41 BMI result Body Mass Index 25.5 <Kym Oleary PA-C Gregoria Last Filed: 03/31/25 10:04> Const: General: comfortable, no acute distress and alert <Kym Oleary PA-C Gregoria Last Filed: 03/31/25 10:04> Resp: Effort & Inspection: normal respiratory effort and not labored <Kym Oleary PA-C Gregoria Last Filed: 03/31/25 10:04> GI: Inspection: Yes normal to inspection, No distended and Yes scar (pfannensteil) <RUCHI Field Last Filed: 03/31/25 10:04> Palpation (GI): Soft to palpation, nontender, no guarding and not rigid <Kym Oleary PA-C Gregoria Last Filed: 03/31/25 10:04> Percussion: Yes normal to percussion <Kym Oleary PA-C Gregoria Last Filed: 03/31/25 10:04> Skin: General skin exam: no rashes or lesions noted and no jaundice <Kym Oleary PA-C Gregoria Last Filed: 03/31/25 10:04> Neuro: General: moves all extremities <Kym Oleary PA-C Gregoria Last Filed: 03/31/25 10:04> Results Labs Result diagrams: 03/31/25 04:22 03/31/25 04:22 <RUCHI Field Last Filed: 03/31/25 10:04> Labs: Abnormal lab results 03/30/25 03/30/25 03/30/25 Range/Units 17:34 17:56 20:04 RBC 3.09 L (4.20-5.50) X10*6/uL Hgb 10.5 L (12.0-16.0) g/dl Hct 29.7 L (37.0-47.0) % MCH 34.0 H (27.0-33.0) pg MCHC 35.4 H (31.0-35.0) g/dl Plt Count 156 L D (160-400) X10*3/uL Neut % (Auto) 86.4 H (45-73) % Lymph % (Auto) 10.0 L (20-40) % [place] % (Auto) (2-11) % Lymph # (Auto) 0.6 L (1.2-4.9) X10*3/uL Sodium 129 L (135-145) mmol/L Chloride 95 L (96-108) mmol/L Carbon Dioxide 15 L (22-29) mmol/L Anion Gap 24 H (12-20) BUN 25 H (9-16) mg/dL POC Glucose 144 H (60-115) mg/dL Random Glucose 167 H (60-115) mg/dL Osmolality (281-305) mosm/kg Lactic Acid 3.0 H* (0.5-2.0) mmol/L AST 46 H (5-31) U/L Urine Protein (Neg-Trace) mg/dL Urine Glucose (UA) (Negative) mg/dL Ur Leukocyte Esterase (Negative) 03/30/25 03/30/25 03/31/25 Range/Units 20:10 21:05 00:21 RBC (4.20-5.50) X10*6/uL Hgb (12.0-16.0) g/dl Hct (37.0-47.0) % MCH (27.0-33.0) pg MCHC (31.0-35.0) g/dl Plt Count (160-400) X10*3/uL Neut % (Auto) (45-73) % Lymph % (Auto) (20-40) % [place] % (Auto) (2-11) % Lymph # (Auto) (1.2-4.9) X10*3/uL Sodium (135-145) mmol/L Chloride (96-108) mmol/L Carbon Dioxide (22-29) mmol/L Anion Gap (12-20) BUN (9-16) mg/dL POC Glucose 121 H 136 H (60-115) mg/dL Random Glucose (60-115) mg/dL Osmolality (281-305) mosm/kg Lactic Acid (0.5-2.0) mmol/L AST (5-31) U/L Urine Protein 30 (1+) H (Neg-Trace) mg/dL Urine Glucose (UA) 250 H (Negative) mg/dL Ur Leukocyte Esterase Small (1+) H (Negative) 03/31/25 03/31/25 03/31/25 Range/Units 02:30 04:22 05:06 RBC 2.80 L (4.20-5.50) X10*6/uL Hgb 10.1 L (12.0-16.0) g/dl Hct 26.9 L (37.0-47.0) % MCH 36.1 H (27.0-33.0) pg MCHC 37.5 H (31.0-35.0) g/dl Plt Count 151 L (160-400) X10*3/uL Neut % (Auto) 92.5 H (45-73) % Lymph % (Auto) 5.0 L (20-40) % [place] % (Auto) 1.9 L (2-11) % Lymph # (Auto) 0.3 L (1.2-4.9) X10*3/uL Sodium 131 L (135-145) mmol/L Chloride (96-108) mmol/L Carbon Dioxide 17 L (22-29) mmol/L Anion Gap (12-20) BUN 23 H (9-16) mg/dL POC Glucose 145 H 170 H (60-115) mg/dL Random Glucose 166 H (60-115) mg/dL Osmolality 279 L (281-305) mosm/kg Lactic Acid (0.5-2.0) mmol/L AST (5-31) U/L Urine Protein (Neg-Trace) mg/dL Urine Glucose (UA) (Negative) mg/dL Ur Leukocyte Esterase (Negative) 03/31/25 03/31/25 Range/Units 06:06 07:43 RBC (4.20-5.50) X10*6/uL Hgb (12.0-16.0) g/dl Hct (37.0-47.0) % MCH (27.0-33.0) pg MCHC (31.0-35.0) g/dl Plt Count (160-400) X10*3/uL Neut % (Auto) (45-73) % Lymph % (Auto) (20-40) % [place] % (Auto) (2-11) % Lymph # (Auto) (1.2-4.9) X10*3/uL Sodium (135-145) mmol/L Chloride (96-108) mmol/L Carbon Dioxide (22-29) mmol/L Anion Gap (12-20) BUN (9-16) mg/dL POC Glucose 186 H 229 H (60-115) mg/dL Random Glucose (60-115) mg/dL Osmolality (281-305) mosm/kg Lactic Acid (0.5-2.0) mmol/L AST (5-31) U/L Urine Protein (Neg-Trace) mg/dL Urine Glucose (UA) (Negative) mg/dL Ur Leukocyte Esterase (Negative) Short CBC 03/30/25 03/31/25 Range/Units 17:56 04:22 WBC 6.1 5.8 (4.8-10.8) X10*3/uL Hgb 10.5 L 10.1 L (12.0-16.0) g/dl Hct 29.7 L 26.9 L (37.0-47.0) % Plt Count 156 L D 151 L (160-400) X10*3/uL BMP 03/30/25 03/31/25 17:56 04:22 Sodium 129 L 131 L Potassium 4.6 4.2 Chloride 95 L 98 Carbon Dioxide 15 L 17 L BUN 25 H 23 H Creatinine 1.08 1.09 Calcium 8.9 8.8 Liver Function 03/30/25 Range/Units 17:56 Total Bilirubin 0.5 (0.0-1.0) mg/dL AST 46 H (5-31) U/L ALT 25 (0-31) U/L Alkaline Phosphatase 80 (39-117) U/L Albumin 4.6 (3.5-5.0) g/dL Urine 03/30/25 Range/Units 21:05 Urine Color Yellow Urine Appearance Clear Urine pH 5.5 (5.0-9.0) Ur Specific [place] 1.020 (1.005-1.025) Urine Protein 30 (1+) H (Neg-Trace) mg/dL Urine Glucose (UA) 250 H (Negative) mg/dL All other labs normal. <Kym Oleary PA-C - Last Filed: 03/31/25 10:04> Imaging Abdomen CT scan report/results: report reviewed and image reviewed <Kym Oleary PA-C - Last Filed: 03/31/25 10:04> Assessment and Plan (1) Adult failure to thrive: Status: Acute <Kym Oleary PA-C - Last Filed: 03/31/25 10:04> [age] year old female here for altered mental status She has some my cognitive impairment as well She had describes epigastric pain last night Cat scan reviewed - question of mild mesenteric stranding, no other acute findings Abdomen currently soft, benign, nontender She denies abdominal pain She has been tolerating clear liquids Okay to slowly advance diet as tolerated No surgical issues currently Seen and examined independently <Sky Rollins MD - Last Filed: 03/31/25 11:44> (2) Hypoglycemia: Status: Acute <Kym Oleary PA-C - Last Filed: 03/31/25 10:04> 74 year old female with history of hypertension, hyperlipidemia, prediabetic, dementia who was brought in by EMS for lethargy, decreased responsiveness yesterday admitted for hypoglycemia, metabolic acidosis. She had mild epigastric pain and therefore CT scan abd pelvis was obtained which did not show any acute intraabdominal findings. She does have a history of biliary dyskinesia but it is unclear if this is the source of her vague abdominal pain. No evidence of acute cholecystitis on imaging, no leukocytosis. Her abdomen is very benign this morning and soft, completely nontender. Would recommend to advance diet as tolerated and see how she does. Patient and at bedside comfortable with that plan and would like to avoid surgery if possible. <Kym Oleary PA-C - Last Filed: 03/31/25 10:04> Procedures Date of Service Date of Service: 03/31/25 <Kym Oleary PA-C - Last Filed: 03/31/25 10:04> 03/31/25 <Sky Rollins MD - Last Filed: 03/31/25 11:44>
[2025-03-31 09:30] VITALS: BP 176/72; PULSE 71; RESP 18; TEMP 36.4; O2SAT 92
--- NOTE | 2025-03-31 11:23 | PHA.MEDREC ---
Addendum entered by Andres Marcano RPh 03/31/25 11:33: Reviewed by [facility] Original Note: Pharmacy Consult ? Medication Reconciliation Pharmacy has completed the medication reconciliation. Spoke to patient at bedside. had a list of medications on his phone. Patient last had her medications Sunday03/29/25
--- NOTE | 2025-03-31 11:35 | MHC.CM.PN ---
PT LIVES WITH IS INDEPEDENT HAD NOPREVIOUS SERVICES IS EXPECTED TOP DC HOME N/S
[2025-03-31 11:55] LABS: Glucose, Whole Blood 251 mg/dL (60-115)
--- NOTE | 2025-03-31 15:55 | HO.PM.IMPN ---
Subjective Subjective Date of Service: 03/31/25 Interval History: No acute issues overnight. Sugars remained stable Review of Systems Denies chest pain Denies shortness of breath Denies nausea vomiting diarrhea Denies fever chills Physical Exam Vital Signs: Vital Signs: Last Vital Signs Temp 97.5 F 03/31/25 09:30 Pulse 71 03/31/25 09:30 Resp 18 03/31/25 09:30 BP 176/72 H 03/31/25 09:30 Pulse Ox 92 03/31/25 09:30 O2 Del Method Room Air 03/31/25 09:30 BMI result Body Mass Index 25.5 Const: Other: Awake alert oriented x3 in no acute distress Resp: Other: Clear to auscultation bilaterally no rales rhonchi or wheezes Cardio: Other: No S4; positive S1-S2; no S3 murmurs rubs or gallops GI: Other: Soft nontender nondistended normoactive bowel sounds Extrem: Other: No edema bilaterally Objective Data Active Medications Acetaminophen (Acetaminophen 325 Mg Tablet) 650 mg PO Q6H PRN PRN Reason: Pain, Mild 1-3,fever,headache Albuterol/Ipratropium (Albuterol/Iprat 2.5/0.5mg 3 Ml Ampul.Neb) 3 ml INHALE Q4H PRN PRN Reason: Shortness of Breath/Wheezing Calcium Carbonate (Calcium Carbonate 750 Mg Tab.Chew) 750 mg PO Q4H PRN PRN Reason: Heartburn Dextrose/Sodium Chloride (D5ns) 1,000 mls @ 100 mls/hr IVCONT .Q10H [facility] Last Admin: 03/31/25 10:32 Dose: 100 mls/hr Documented By: JENSEN Acetaminophen (Ofirmev) 1,000 mg in 100 mls @ 400 mls/hr IV Q6H PRN PRN Reason: Pain, Severe (Pain Scale 7-10) Insulin Human Lispro (Insulin Lispro 100 Unit/Ml 3 Ml Vial) 0 unit SUBCUT QIDACHS [facility]; Protocol Last Admin: 03/31/25 12:04 Dose: 6 unit Documented By: JENSEN Magnesium Hydroxide (Milk Of Magnesia 30 Ml Oral.Susp) 30 ml PO DAILY PRN PRN Reason: Constipation Melatonin (Melatonin 3 Mg Tablet) 6 mg PO BEDTIME PRN PRN Reason: Insomnia Ondansetron HCl (Ondansetron Hcl 4 Mg/2 Ml Vial) 4 mg IVPUSH Q8H PRN PRN Reason: Nausea and Vomiting Polyethylene Glycol (Polyethylene Glycol 3350 17 Gm Powd.Pack) 17 gm PO DAILY PRN PRN Reason: Constipation Prednisone (Prednisone 20 Mg Tablet) 40 mg PO DAILY [facility] Last Admin: 03/31/25 01:23 Dose: 40 mg Documented By: JANETANX Senna (Sennosides 8.6 Mg Tablet) 17.2 mg PO BEDTIME [facility] Sodium Chloride (0.9 % Sodium Chloride Flush 3 Ml Syringe) 3 ml IVFLUSH QSHIFT [facility] Last Admin: 03/31/25 15:21 Dose: Not Given Documented By: JENSEN Non-Admin Reason: IV Running Labs 03/31/25 04:22 03/31/25 04:22 Labs: Laboratory Results - last 24 hr 03/30/25 03/30/25 03/30/25 17:34 17:56 18:15 MCV 96.1 MCH 34.0 H MCHC 35.4 H RDW 11.5 Plt Count 156 L D MPV 9.5 Immature Gran % (Auto) 0.3 Neut % (Auto) 86.4 H Lymph % (Auto) 10.0 L [place] % (Auto) 2.6 Eos % (Auto) 0.0 Baso % (Auto) 0.7 Lymph # (Auto) 0.6 L [place] # (Auto) 0.2 Eos # (Auto) 0.0 Baso # (Auto) 0.0 Abs Immat Gran (auto) 0.02 Absolute Neuts (auto) 5.3 Absolute Nucleated RBC 0.000 Nucleated RBC % (auto) 0.0 Smear Tech's Comments Anion Gap 24 H Estim Creat Clear Calc 39.4 Estimated GFR 50 POC Glucose 144 H Random Glucose 167 H Estimat Average Glucose Hemoglobin A1c % Osmolality Lactic Acid Lactic Acid F/U @ 2Hr Calcium 8.9 Total Bilirubin 0.5 AST 46 H ALT 25 Alkaline Phosphatase 80 Total Protein 7.6 Albumin 4.6 Lipase 15 TSH 1.31 Urine Color Urine Appearance Urine pH Ur Specific [place] Urine Protein Urine Glucose (UA) Urine Ketones Urine Blood Urine Nitrite Ur Leukocyte Esterase Urine RBC Urine WBC Ur Squamous Epith Cells Urine Bacteria Hyaline Casts Urine Yeast Urine Osmolality Ur Random Sodium Influenza Type A (PCR) NEGATIVE Influenza Type B (PCR) NEGATIVE RSV RNA Qual (PCR) NEGATIVE SARS-CoV-2 RNA (RT-PCR) NEGATIVE 03/30/25 03/30/25 03/30/25 20:04 20:10 21:05 MCV MCH MCHC RDW Plt Count MPV Immature Gran % (Auto) Neut % (Auto) Lymph % (Auto) [place] % (Auto) Eos % (Auto) Baso % (Auto) Lymph # (Auto) [place] # (Auto) Eos # (Auto) Baso # (Auto) Abs Immat Gran (auto) Absolute Neuts (auto) Absolute Nucleated RBC Nucleated RBC % (auto) Smear Tech's Comments Anion Gap Estim Creat Clear Calc Estimated GFR POC Glucose 121 H Random Glucose Estimat Average Glucose Hemoglobin A1c % Osmolality Lactic Acid 3.0 H* Lactic Acid F/U @ 2Hr Calcium Total Bilirubin AST ALT Alkaline Phosphatase Total Protein Albumin Lipase TSH Urine Color Yellow Urine Appearance Clear Urine pH 5.5 Ur Specific [place] 1.020 Urine Protein 30 (1+) H Urine Glucose (UA) 250 H Urine Ketones 15 Urine Blood Negative Urine Nitrite Negative Ur Leukocyte Esterase Small (1+) H Urine RBC 0-2 Urine WBC 6-10 Ur Squamous Epith Cells 11-20 Urine Bacteria 1+ Hyaline Casts 6-10 Urine Yeast Present Urine Osmolality 529 Ur Random Sodium 36.0 Influenza Type A (PCR) Influenza Type B (PCR) RSV RNA Qual (PCR) SARS-CoV-2 RNA (RT-PCR) 03/30/25 03/30/25 03/31/25 22:21 22:59 00:21 MCV MCH MCHC RDW Plt Count MPV Immature Gran % (Auto) Neut % (Auto) Lymph % (Auto) [place] % (Auto) Eos % (Auto) Baso % (Auto) Lymph # (Auto) [place] # (Auto) Eos # (Auto) Baso # (Auto) Abs Immat Gran (auto) Absolute Neuts (auto) Absolute Nucleated RBC Nucleated RBC % (auto) Smear Tech's Comments Anion Gap Estim Creat Clear Calc Estimated GFR POC Glucose 78 136 H Random Glucose Estimat Average Glucose Hemoglobin A1c % Osmolality Lactic Acid Lactic Acid F/U @ 2Hr 1.6 Calcium Total Bilirubin AST ALT Alkaline Phosphatase Total Protein Albumin Lipase TSH Urine Color Urine Appearance Urine pH Ur Specific [place] Urine Protein Urine Glucose (UA) Urine Ketones Urine Blood Urine Nitrite Ur Leukocyte Esterase Urine RBC Urine WBC Ur Squamous Epith Cells Urine Bacteria Hyaline Casts Urine Yeast Urine Osmolality Ur Random Sodium Influenza Type A (PCR) Influenza Type B (PCR) RSV RNA Qual (PCR) SARS-CoV-2 RNA (RT-PCR) 03/31/25 03/31/25 03/31/25 02:30 04:22 05:06 MCV 96.1 MCH 36.1 H MCHC 37.5 H RDW 11.3 Plt Count 151 L MPV 9.8 Immature Gran % (Auto) 0.3 Neut % (Auto) 92.5 H Lymph % (Auto) 5.0 L [place] % (Auto) 1.9 L Eos % (Auto) 0.0 Baso % (Auto) 0.3 Lymph # (Auto) 0.3 L [place] # (Auto) 0.1 Eos # (Auto) 0.0 Baso # (Auto) 0.0 Abs Immat Gran (auto) 0.02 Absolute Neuts (auto) 5.3 Absolute Nucleated RBC 0.000 Nucleated RBC % (auto) 0.0 Smear Tech's Comments VERIFIED Anion Gap 20 Estim Creat Clear Calc 39.1 Estimated GFR 49 POC Glucose 145 H 170 H Random Glucose 166 H Estimat Average Glucose 105 Hemoglobin A1c % 5.3 Osmolality 279 L Lactic Acid Lactic Acid F/U @ 2Hr Calcium 8.8 Total Bilirubin AST ALT Alkaline Phosphatase Total Protein Albumin Lipase TSH Urine Color Urine Appearance Urine pH Ur Specific [place] Urine Protein Urine Glucose (UA) Urine Ketones Urine Blood Urine Nitrite Ur Leukocyte Esterase Urine RBC Urine WBC Ur Squamous Epith Cells Urine Bacteria Hyaline Casts Urine Yeast Urine Osmolality Ur Random Sodium Influenza Type A (PCR) Influenza Type B (PCR) RSV RNA Qual (PCR) SARS-CoV-2 RNA (RT-PCR) 03/31/25 03/31/25 03/31/25 06:06 07:43 11:51 MCV MCH MCHC RDW Plt Count MPV Immature Gran % (Auto) Neut % (Auto) Lymph % (Auto) [place] % (Auto) Eos % (Auto) Baso % (Auto) Lymph # (Auto) [place] # (Auto) Eos # (Auto) Baso # (Auto) Abs Immat Gran (auto) Absolute Neuts (auto) Absolute Nucleated RBC Nucleated RBC % (auto) Smear Tech's Comments Anion Gap Estim Creat Clear Calc Estimated GFR POC Glucose 186 H 229 H 251 H Random Glucose Estimat Average Glucose Hemoglobin A1c % Osmolality Lactic Acid Lactic Acid F/U @ 2Hr Calcium Total Bilirubin AST ALT Alkaline Phosphatase Total Protein Albumin Lipase TSH Urine Color Urine Appearance Urine pH Ur Specific [place] Urine Protein Urine Glucose (UA) Urine Ketones Urine Blood Urine Nitrite Ur Leukocyte Esterase Urine RBC Urine WBC Ur Squamous Epith Cells Urine Bacteria Hyaline Casts Urine Yeast Urine Osmolality Ur Random Sodium Influenza Type A (PCR) Influenza Type B (PCR) RSV RNA Qual (PCR) SARS-CoV-2 RNA (RT-PCR) Microbiology Microbiology Results: Microbiology 03/30/25 Unknown Urine Culture - Preliminary Urine clean catch - Clean Catch Midstream No growth to date. Assessment and Plan (1) Non-diabetic hypoglycemia: Status: Acute Plan Patient is a 74-year-old female with past medical history biliary dyskinesia, choledochal cholelithiasis, diverticulosis, dementia, hyperlipidemia, osteopenia, hypertension presents to the emergency room with complaints of decreased responsiveness and hypoglycemia along with almost 2 days of abdominal pain. 1. Hypoglycemia -no history of diabetes. A1c 5.3 -patient's daughter describes daily alcohol intake; 48 hours prior to admission excessive intake with essentially no food or liquid intake 24 hours prior to admission. -likely early insulin resistance -diabetic diet; follow up labs in a.m. 2. Metabolic acidosis -responded to volume repletion; resolved -follow renals/divalent 3. Hyponatremia (hypovolemic) -improved with volume -DC IV fluids; advance diet -follow renals divalent in a.m. 4. Mesenteric panniculitis -last colonoscopy 2021 ([facility]) unremarkable -continue prednisone taper as outlined -incidental complaint upon admission; follow up with GI as outpatient 5. Dyspepsia secondary to excessive alcohol use (likely cause of patient presenting complaint) -omeprazole b.i.d. Full code Quality Stroke Does the patient have a stroke diagnosis?: No Reason for No Anti-thrombotic by Day Two: N/A - Med Ordered VTE Prior VTE?: No VTE Risk Level:: Medical - moderate - high VTE Device Contraindication: N/A - Device Ordered VTE Drug Contraindication: N/A - Med Ordered
[2025-03-31 16:00] VITALS: BP 167/74; PULSE 61; RESP 18; TEMP 36.7; O2SAT 99
[2025-03-31 16:29] LABS: Glucose, Whole Blood 245 mg/dL (60-115)
[2025-03-31 19:57] VITALS: BP 138/63; PULSE 63; RESP 18; TEMP 36.7; O2SAT 98
[2025-03-31 20:45] LABS: Glucose, Whole Blood 118 mg/dL (60-115)
[2025-04-01] MEDS: 0.9 % Sodium Chloride Flush 3 ML SYRINGE IVFLUSH ×2 (00:48→07:18)
[2025-04-01 03:34] VITALS: BP 137/77; PULSE 69; RESP 16; TEMP 36.2; O2SAT 100
[2025-04-01 06:49] LABS: MANUAL DIFF FLAG NO
[2025-04-01 06:52] LABS: Hematocrit 27.2 % (37.0-47.0); Hemoglobin 9.8 g/dl (12.0-16.0); Imm Gran Abs Auto 0.02 X10*3/uL (0.00-0.03); Imm Gran Pct Auto 0.4 % (0.0-0.4); Lymphocytes Absolute Auto 1.3 X10*3/uL (1.2-4.9); Mean Corpuscular HGB Conc 36.0 g/dl (31.0-35.0); Mean Corpuscular Hemoglobin 33.9 pg (27.0-33.0); Mean Corpuscular Volume 94.1 fL (80.0-98.0); NRBC Abs Auto 0.000 X10*3/uL (0.0-0.012); NRBC Pct Auto 0.0 /100WBC (0.0-0.2); Platelet Count 147 X10*3/uL (160-400); Red Blood Count 2.89 X10*6/uL (4.20-5.50); White Blood Count 5.1 X10*3/uL (4.8-10.8)
[2025-04-01 07:20] LABS: Alanine Aminotransferase 16 U/L (0-31); Albumin Level 4.1 g/dL (3.5-5.0); Alkaline Phosphatase 61 U/L (39-117); Anion Gap 12 (12-20); Aspartate Amino Transferase 25 U/L (5-31); Blood Urea Nitrogen 17 mg/dL (9-16); Calcium 9.1 mg/dL (8.4-10.2); Carbon Dioxide 23 mmol/L (22-29); Chloride 102 mmol/L (96-108); Creatinine Clr Calc Pharmacy 35.9; Estimated Glomerular Filt Rate 45; Potassium 3.5 mmol/L (3.3-5.1); Sodium 133 mmol/L (135-145); Total Protein 6.6 g/dL (6.5-8.0)
[2025-04-01] MEDS: Aspirin Enteric Coated 81 MG TABLET.DR PO (07:26)
[2025-04-01 07:29] LABS: Glucose, Whole Blood 116 mg/dL (60-115)
--- NOTE | 2025-04-01 07:35 | PM.PNGS ---
Subjective Subjective Date of Service: 04/01/25 <Kym Oleary PA-C - Last Filed: 04/01/25 07:37> 04/01/25 <Sky Rollins MD - Last Filed: 04/01/25 16:28> Interval history: Denies any abdominal pain. Tolerated solid diet last night. <Kym Oleary PA-C - Last Filed: 04/01/25 07:37> Physical Exam Vital Signs: Vital Signs: Last Vital Signs Temp 97.2 F 04/01/25 03:34 Pulse 69 04/01/25 03:34 Resp 16 04/01/25 03:34 BP 137/77 04/01/25 03:34 Pulse Ox 100 04/01/25 03:34 O2 Del Method Room Air 04/01/25 03:34 BMI result Body Mass Index 25.5 <Kym Oleary PA-C - Last Filed: 04/01/25 07:37> Const: General: comfortable, no acute distress and alert <Kym Oleary PA-C - Last Filed: 04/01/25 07:37> Resp: Effort & Inspection: normal respiratory effort <Kym Oleary PA-C - Last Filed: 04/01/25 07:37> GI: Inspection: No distended <Kym Oleary PA-C - Last Filed: 04/01/25 07:37> Palpation (GI): Soft to palpation, nontender and no guarding <Kym Oleary PA-C - Last Filed: 04/01/25 07:37> Skin: General skin exam: no rashes or lesions noted <Kym Oleary PA-C - Last Filed: 04/01/25 07:37> Objective Data Active Medications Acetaminophen (Acetaminophen 325 Mg Tablet) 650 mg PO Q6H PRN PRN Reason: Pain, Mild 1-3,fever,headache Last Admin: 03/31/25 20:52 Dose: 650 mg Documented By: ROSELYN Albuterol/Ipratropium (Albuterol/Iprat 2.5/0.5mg 3 Ml Ampul.Neb) 3 ml INHALE Q4H PRN PRN Reason: Shortness of Breath/Wheezing Aspirin (Aspirin Enteric Coated 81 Mg Tablet.) 81 mg PO DAILY [facility] Last Admin: 04/01/25 07:26 Dose: 81 mg Documented By: JENSEN Calcium Carbonate (Calcium Carbonate 750 Mg Tab.Chew) 750 mg PO Q4H PRN PRN Reason: Heartburn Acetaminophen (Ofirmev) 1,000 mg in 100 mls @ 400 mls/hr IV Q6H PRN PRN Reason: Pain, Severe (Pain Scale 7-10) Insulin Human Lispro (Insulin Lispro 100 Unit/Ml 3 Ml Vial) 0 unit SUBCUT QIDACHS [facility]; Protocol Last Admin: 04/01/25 07:27 Dose: Not Given Documented By: JENSEN Non-Admin Reason: No Insulin Coverage Losartan Potassium (Losartan Potassium 50 Mg Tablet) 50 mg PO BID [facility]; Protocol Last Admin: 04/01/25 07:26 Dose: 50 mg Documented By: JENSEN Magnesium Hydroxide (Milk Of Magnesia 30 Ml Oral.Susp) 30 ml PO DAILY PRN PRN Reason: Constipation Melatonin (Melatonin 3 Mg Tablet) 6 mg PO BEDTIME PRN PRN Reason: Insomnia Last Admin: 03/31/25 20:51 Dose: 6 mg Documented By: ROSELYN Comments: promote sleep Omeprazole (Omeprazole 40 Mg Capsule.) 40 mg PO BID@0630,1630 [facility] Last Admin: 04/01/25 06:09 Dose: 40 mg Documented By: OSMAN Ondansetron HCl (Ondansetron Hcl 4 Mg/2 Ml Vial) 4 mg IVPUSH Q8H PRN PRN Reason: Nausea and Vomiting Polyethylene Glycol (Polyethylene Glycol 3350 17 Gm Powd.Pack) 17 gm PO DAILY PRN PRN Reason: Constipation Prednisone (Prednisone 20 Mg Tablet) 40 mg PO DAILY [facility] Last Admin: 04/01/25 07:26 Dose: 40 mg Documented By: JENSEN Senna (Sennosides 8.6 Mg Tablet) 17.2 mg PO BEDTIME [facility] Last Admin: 03/31/25 20:52 Dose: 17.2 mg Documented By: ROSELYN Sodium Chloride (0.9 % Sodium Chloride Flush 3 Ml Syringe) 3 ml IVFLUSH QSHIFT [facility] Last Admin: 04/01/25 07:18 Dose: 3 ml Documented By: JENSEN Oleary PA-C - Last Filed: 04/01/25 07:37> Labs CBC & Chem 7: 04/01/25 06:20 04/01/25 06:20 <Kym Oleary PA-C - Last Filed: 04/01/25 07:37> Labs: Laboratory Results - last 24 hr 03/31/25 03/31/25 03/31/25 07:43 11:51 16:10 MCV MCH MCHC RDW Plt Count MPV Immature Gran % (Auto) Neut % (Auto) Lymph % (Auto) [place] % (Auto) Eos % (Auto) Baso % (Auto) Lymph # (Auto) [place] # (Auto) Eos # (Auto) Baso # (Auto) Abs Immat Gran (auto) Absolute Neuts (auto) Absolute Nucleated RBC Nucleated RBC % (auto) Anion Gap Estim Creat Clear Calc Estimated GFR POC Glucose 229 H 251 H 245 H Fasting Glucose Calcium Total Bilirubin AST ALT Alkaline Phosphatase Total Protein Albumin 03/31/25 04/01/25 04/01/25 20:34 06:20 07:19 MCV 94.1 MCH 33.9 H MCHC 36.0 H RDW 11.4 Plt Count 147 L MPV 9.5 Immature Gran % (Auto) 0.4 Neut % (Auto) 63.5 Lymph % (Auto) 26.2 [place] % (Auto) 9.1 Eos % (Auto) 0.2 Baso % (Auto) 0.6 Lymph # (Auto) 1.3 [place] # (Auto) 0.5 Eos # (Auto) 0.0 Baso # (Auto) 0.0 Abs Immat Gran (auto) 0.02 Absolute Neuts (auto) 3.2 Absolute Nucleated RBC 0.000 Nucleated RBC % (auto) 0.0 Anion Gap 12 Estim Creat Clear Calc 35.9 Estimated GFR 45 POC Glucose 118 H 116 H Fasting Glucose 102 H Calcium 9.1 Total Bilirubin 0.7 AST 25 ALT 16 Alkaline Phosphatase 61 Total Protein 6.6 Albumin 4.1 <Kym Oleary PA-C - Last Filed: 04/01/25 07:37> Microbiology Microbiology Results: Microbiology 03/30/25 20:34 Blood Culture - Preliminary Blood - Venous No growth after 24 hours. 03/30/25 20:04 Blood Culture - Preliminary Blood - Venous No growth after 24 hours. 03/30/25 Unknown Urine Culture - Preliminary Urine clean catch - Clean Catch Midstream No growth to date. <Kym Oleary PA-C - Last Filed: 04/01/25 07:37> Procedures Date of Service Date of Service: 04/01/25 <Kym Oleary PA-C - Last Filed: 04/01/25 07:37> 04/01/25 <Sky Rollins MD - Last Filed: 04/01/25 16:28> Progress Note: A&P Assessment and plan (1) Hypoglycemia: Status: Acute <Kym Oleary PA-C - Last Filed: 04/01/25 07:37> Assessment and Plan: Abdominal exam remained soft and benign Tolerating diet No surgical issues currently Seen and examined independently <Sky Rollins MD - Last Filed: 04/01/25 16:28> Assessment and Plan: Tolerating solid diet without any abdominal pain, nausea or vomiting. Abd remains very benign, soft and nontender. No surgical issues currently. Will sign off. Please reconsult with changes. <Kym Oleary PA-C - Last Filed: 04/01/25 07:37> Time Spent With Patient Time: Total time managing care of this patient today ____ minutes. <Kym Oleary PA-C - Last Filed: 04/01/25 07:37> Quality Stroke Does the patient have a stroke diagnosis?: No <Kym Oleary PA-C - Last Filed: 04/01/25 07:37> Reason for No Anti-thrombotic by Day Two: N/A - Med Ordered <Kym Oleary PA-C - Last Filed: 04/01/25 07:37> VTE Prior VTE?: No <Kym Oleary PA-C - Last Filed: 04/01/25 07:37> VTE Risk Level:: Medical - moderate - high <Kym Oleary PA-C - Last Filed: 04/01/25 07:37> VTE Device Contraindication: N/A - Device Ordered <Kym Oleary PA-C - Last Filed: 04/01/25 07:37> VTE Drug Contraindication: N/A - Med Ordered <Kym Oleary PA-C - Last Filed: 04/01/25 07:37>
[2025-04-01 08:00] VITALS: BP 183/82; PULSE 64; RESP 16; TEMP 36.2; O2SAT 97
--- NOTE | 2025-04-01 10:20 | MHC.CM.PN ---
Per MD rounds Patient is medically cleared to discharge today. Patient declines VNA services. She states that her dtr is a visiting nurse @ [facility]. Patient has arranged for transportation home.
[2025-04-01 11:13] LABS: Glucose, Whole Blood 180 mg/dL (60-115)
[2025-04-01 12:08] VITALS: BP 180/79
--- NOTE | 2025-04-01 13:01 | P.DS_ITS ---
DS: Providers Provider Date of Service: 04/01/25 Date of admission: 03/30/25 23:53 Date of discharge: 04/01/25 Primary care physician: Carla Lacey MD Consults: 03/31/25 01:06 Consult to General Surgery Routine Consulting Provider: [facility] General Surgeons Reason for consultation: biliary dyskinesia, mild mesenteric panniculitis/sclerosing mesenteritis. DS: Diagnosis Discharge Diagnosis (1) Hypoglycemia: Status: Acute DS: Summary Hospital Course Hospital Course: 74-year-old female with past medical history biliary dyskinesia, choledochal cholelithiasis, diverticulosis, dementia, hyperlipidemia, osteopenia, hypertension presented to the emergency room brought in by ambulance with report of decreased responsiveness per patient's . Patient does not recall the events from earlier but did report almost 2 days of persistent intermittent epigastric to the right upper quadrant belly pain. Patient denied any chest pain, shortness of breath at rest, nausea or vomiting. Patient states she has had this pain in the past and was seen by a specialist for this. EMS noted blood sugar was 38 mg/dL and patient is not an active diabetic on insulin or oral medications. Last hemoglobin A1c was in 2022 and was 5.8. Patient did receive 25 g of D10 and glucose came up to 228. While in the emergency room patient's blood sugars wavered between 144 and 78 mg/dL. Patient now continues on a D10 infusion at 75 mL/hour. Hospital course Patient admitted to general medical floor and her sugars remained stable during her hospitalization as she tolerated a diabetic diet. Incidental finding on CAT scan of mild mesenteric panniculitis for which patient was started on prednisone. Upon further questioning, patient attended an event 48 hours prior to hospitalization where she ate very little and had several cocktails which is more than she has every day. The next day she did not eat essentially anything and drank very little fluids and complain of gas pain. After review of data, likely patient has had a mild gastritis and her reactive hypoglycemia is an early sign of likely type 2 diabetes. She has been advised to monitor her alcohol intake and eat frequent small meals. She will complete a short course of prednisone as it was started on admission. She also will complete a course of omeprazole. She will follow up with the PCP next available Time Attestation Discharge Coordination Time (in mins): 35 Quality: Safe Use of Opioids Does Pt have an Active Cancer Diagnosis on the Problem List?: No Quality: Stroke Does the patient have a stroke diagnosis?: No Physical Exam Vital Signs: Vital Signs: Last Vital Signs Temp 97.2 F 04/01/25 08:00 Pulse 64 04/01/25 08:00 Resp 16 04/01/25 08:00 BP 180/79 H 04/01/25 12:08 Pulse Ox 97 04/01/25 08:00 O2 Del Method Room Air 04/01/25 08:00 BMI result Body Mass Index 25.5 DS: Data Data Completed and Pending Labs on day of discharge: Laboratory Results - last 24 hr 03/31/25 03/31/25 04/01/25 16:10 20:34 06:20 WBC 5.1 RBC 2.89 L Hgb 9.8 L Hct 27.2 L MCV 94.1 MCH 33.9 H MCHC 36.0 H RDW 11.4 Plt Count 147 L MPV 9.5 Immature Gran % (Auto) 0.4 Neut % (Auto) 63.5 Lymph % (Auto) 26.2 [place] % (Auto) 9.1 Eos % (Auto) 0.2 Baso % (Auto) 0.6 Lymph # (Auto) 1.3 [place] # (Auto) 0.5 Eos # (Auto) 0.0 Baso # (Auto) 0.0 Abs Immat Gran (auto) 0.02 Absolute Neuts (auto) 3.2 Absolute Nucleated RBC 0.000 Nucleated RBC % (auto) 0.0 Sodium 133 L Potassium 3.5 Chloride 102 Carbon Dioxide 23 Anion Gap 12 BUN 17 H Creatinine 1.19 Estim Creat Clear Calc 35.9 Estimated GFR 45 POC Glucose 245 H 118 H Fasting Glucose 102 H Calcium 9.1 Total Bilirubin 0.7 AST 25 ALT 16 Alkaline Phosphatase 61 Total Protein 6.6 Albumin 4.1 04/01/25 04/01/25 07:19 11:09 WBC RBC Hgb Hct MCV MCH MCHC RDW Plt Count MPV Immature Gran % (Auto) Neut % (Auto) Lymph % (Auto) [place] % (Auto) Eos % (Auto) Baso % (Auto) Lymph # (Auto) [place] # (Auto) Eos # (Auto) Baso # (Auto) Abs Immat Gran (auto) Absolute Neuts (auto) Absolute Nucleated RBC Nucleated RBC % (auto) Sodium Potassium Chloride Carbon Dioxide Anion Gap BUN Creatinine Estim Creat Clear Calc Estimated GFR POC Glucose 116 H 180 H Fasting Glucose Calcium Total Bilirubin AST ALT Alkaline Phosphatase Total Protein Albumin Preliminary micro results at discharge 03/30/25 Unknown Urine Culture - Preliminary Urine clean catch - Clean Catch Midstream Culture in progress. 03/30/25 20:34 Blood Culture - Preliminary Blood - Venous No growth after 24 hours. 03/30/25 20:04 Blood Culture - Preliminary Blood - Venous No growth after 24 hours. Discharge Plan Discharge Anticipated Discharge Date/Time: 04/01/25 12:55 Patient Disposition: Home, Self-Care Discharge Diagnosis: Nondiabetic hypoglycemia Referrals: Po,Carla Willard MD [Primary Care Provider, Internal Medicine] - 1 Week Discharge Medications: New prednisone 20 mg Tablet 40 mg PO DAILY Qty: 6 0RF omeprazole 40 mg Capsule,Delayed Release(Dr/Ec) 40 mg PO BID@0630,1630 Qty: 60 0RF Continued rosuvastatin 40 mg tablet 40 mg PO DAILY Qty: 90 2RF losartan 50 mg tablet 50 mg PO BID cyanocobalamin (vitamin B-12) [Vitamin B-12] 1,000 mcg Tablet 1,000 mcg PO DAILY aspirin 81 mg tablet,delayed release (DR/EC) 81 mg PO DAILY Discharge Orders: Discharge Order (Routine); Ordered 04/01/25 Ordered By: Regis Darby Diet: Advance to usual diet Activity on Discharge: As tolerated Stand Alone Forms: Patient Portal Discharge page Print Language: Icelandic Care Plan Goals: Complete course of prednisone as ordered Health Concerns: Better to eat small frequent meals throughout the day to avoid low blood sugar. Caution when drinking alcohol Plan of Treatment: Resume all your meds as taken prior to the hospital and follow up with your PCP next available Assessment: See discharge summary
--- NOTE | 2025-04-16 07:56 | P.CDIM_ITS ---
PROVIDER RESPONSE TEXT: To clarify, the appropriate diagnosis supported by the clinical indicators: DM2 with hypoglycemia QUERY TEXT: PHYSICIAN'S DOCUMENTATION REQUEST Date of Query: 04/16/2025 06:57 AM EDT Patient Name: Gale Rutledge Admit Date: 03/31/2025 Dear Regis Darby DO, A review of the medical record indicates additional documentation may be needed. Please review below and update the documentation accordingly. The purpose of this query is not to question medical judgment, but to ensure the accuracy of the conditions reported for your patient. The diagnosis of hypoglycemia is documented in the record on the Discharge Summary. There is either a lack of clinical support for this condition in the current medical record, or there is a lack of recognized standard criteria to support the condition. Clinical Indicators: The Discharge Summary states: hypoglycemia due to early diabetes and also states hypoglycemia is non- diabetic The request is for one of the following: Please clarify the documentation of hypoglycemia: DM2 with hypoglycemia Non-diabetic hypoglycemia Other (explain) Clinically unable to determine (explain) Thank you, Louisa Morin RN Use of terms such as suspected, likely, concern for, or probable (associated with a specific diagnosis that is being evaluated, monitored, or treated as if it exists) are acceptable and can be coded in the inpatient setting, when documented at the time of discharge. Please use your independent medical judgment in providing your response. THIS QUERY IS PART OF THE PERMANENT MEDICAL RECORD
== END 2025-04-01 13:36 | disposition home or self-care (01) | DRG 638 ==
LOC: HO.ED 18:41 → HO.EDOVER 23:57 → HO.S3 03-31 07:27
PROVIDERS: Nurse Practitioner Family; Admitting Provider Student in an Organized Health Care Education/Training Program; Emergency Provider Internal Medicine; PCP Internal Medicine; Visit Provider Hospitalist
DX: E11.649 Type 2 diabetes mellitus with hypoglycemia without coma (principal); E87.1 Hypo-osmolality and hyponatremia; K65.4 Sclerosing mesenteritis; E87.20 Acidosis, unspecified; E86.1 Hypovolemia; G30.9 Alzheimer's disease, unspecified; F02.80 Dementia in other diseases classified elsewhere, unspecified severity, without behavioral disturbance, psychotic disturbance, mood disturbance, and anxiety; E78.5 Hyperlipidemia, unspecified; K29.70 Gastritis, unspecified, without bleeding; Z20.822 Contact with and (suspected) exposure to COVID-19; Z87.891 Personal history of nicotine dependence; Z79.82 Long term (current) use of aspirin; Z79.899 Other long term (current) drug therapy
CPT/HCPCS: 36415; 74177; 80048; 80053; 81001; 82947; 83036; 83605; 83690; 83930; 83935; 84300; 84443; 84484; 85025; 87040; 87086; 87637; 93005; 99285; J0696; J1610; J1644; J2405; Q9967

== ENCOUNTER → 2025-03-30 17:57 | Outpatient (BNV) | payer MEDICARE, OTHER, SELFPAY | PROVIDERS: Admitting Provider Student in an Organized Health Care Education/Training Program; Emergency Provider Internal Medicine; PCP Internal Medicine; Visit Provider Internal Medicine Cardiovascular Disease | DX: E16.2 Hypoglycemia, unspecified (principal) | CPT/HCPCS: 93010 ==

== ENCOUNTER → 2025-03-30 19:58 | Outpatient (BNV) | payer MEDICARE, OTHER, SELFPAY | PROVIDERS: Emergency Provider Internal Medicine; PCP Internal Medicine; Visit Provider Specialist | DX: K57.30 Diverticulosis of large intestine without perforation or abscess without bleeding (principal) | CPT/HCPCS: 74177 ==

== ENCOUNTER → 2025-03-30 23:53 | Outpatient (BNV) | payer MEDICARE, OTHER, SELFPAY | PROVIDERS: Admitting Provider Student in an Organized Health Care Education/Training Program; Emergency Provider Internal Medicine; PCP Internal Medicine; Visit Provider Physician Assistant Surgical | DX: E16.2 Hypoglycemia, unspecified (principal) | CPT/HCPCS: 99222; 99232 ==

== ENCOUNTER → 2025-03-30 23:53 | Outpatient (BNV) | payer MEDICARE, OTHER, SELFPAY | PROVIDERS: Admitting Provider Student in an Organized Health Care Education/Training Program; Emergency Provider Internal Medicine; PCP Internal Medicine; Visit Provider Nurse Practitioner Family | DX: E16.2 Hypoglycemia, unspecified (principal) | CPT/HCPCS: 99223; 99232; 99239 ==

== ENCOUNTER 2025-04-02 10:18 | Outpatient (AMB) | payer MEDICARE, OTHER, SELFPAY ==
--- NOTE | 2025-04-02 10:20 | MHC.OFFVIS ---
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 She is accompanied by her John who helps with history . Her family noticed that she has slowed down and shuffles about 3 years ago.They also noticed that she was frequently repeating herself worsening over the past 3 years. she has trouble with short term recall, trouble with conversations, forgetting often , misplaces things in the house, has trouble using the remote , using microwave. she does not cook anymore. Mood is stable . no word searching issues. No change in personality.she does not drive- says she does not feel safe.she denies hallucinations, change in behavior. No head injury No fh/o dementia [facility] Medical History Alzheimer's dementia Breast cancer screening by mammogram Colon cancer screening Hypertension Hypercholesterolemia Type 2 diabetes mellitus with hyperglycemia Surgical History H/O colonoscopy History of section Family History Father Lung cancer Mother Myocardial infarction Social History Household Members: Spouse Housing: House Do you presently have visiting nurse or other home services: No Alcohol intake: current Alcohol intake frequency: holidays/special occasions only Alcohol type: wine Comment: Patient's daughter remains at bedside overnight. 2 glasses of wine 3 night Patient Tobacco Use Status: Former Tobacco user Tobacco use type: Cigarette Years Smoked: 37 years old stopped e-Cigarette/Vaping Use: Never Used Second Hand Smoke Exposure: No service: No Current occupational status: retired Cognitive needs: No Hearing needs: No Vision needs: Yes (Glasses) Review of Systems Neuro Reports confusion Psych Reports confusion Physical Exam Vital Signs: Last Vital Signs Pulse 76 04/02/25 10:23 BP 160/80 H 04/02/25 10:23 Pulse Ox 98 04/02/25 10:23 Oxygen Delivery Method Room Air 04/02/25 10:23 Const General: cooperative, healthy appearing, comfortable, no acute distress and confusion Nutritional Appearance: average body habitus Orientation/consciousness: confusion Eyes Pupils: Equal, round and reactive pupils present Neuro Other: gait- right arm decreased swing - mild stoop, mild slowness Right UE 2 + cog wheel rigidty General: tone normal, moves all extremities, no focal motor deficits and confusion Cranial nerves: Yes Facial sensation intact/muscles of mastication intact, Yes Equal, round and reactive pupils present, Yes Bilaterally intact EOM present, Yes Nystagmus not present, Yes Normal facial strength present, Yes Midline tongue present, Yes Symmetric palate elevation present and Yes Ability to bilaterally elevate shoulders present Cognition (Neuro): abnormal cognition Motor exam (neuro): 5/5 motor strength present throughout Deep tendon reflexes (DTR's): Right triceps reflex intensity grade: 2+, Left triceps reflex intensity grade: 2+, Rt Biceps (C5, C6): 2+, Left biceps reflex intensity grade: 2+, Right brachioradialis reflex intensity grade: 2+, Left brachioradialis reflex intensity grade: 2+, Right patellar reflex intensity grade: 2+ and Left patellar reflex intensity grade: 2+ Coordination: [id number] test normal Orientation What is the (year) (season) (date) (day) (month)?: season Where are we (state) (county) (town or city) (hospital) (floor)?: state, town or city and hospital/clinic Registration Name of 3 unrelated objects clearly and slowly, then ask patient to repeat all 3 of them. (1st repeat determines score. Make sure they can repeat all three): object 1, object 2 and object 3 Attention & Calculation (CHOOSE ONE) Spell WORLD backwards (DLROW): 4 letters Language Show patient a wristwatch & ask what it is. Repeat for pencil.: watch and pencil Ask the patient to repeat the phrase 'No ifs, ands, or buts' after you.: correct Ask the patient to 'take a piece of paper with their right hand' 'fold paper in half' 'place paper on floor': take paper in right hand, fold paper in half and place paper on floor Print the sentence 'CLOSE YOUR EYES' on a piece. If patient actually closes eyes then score.: followed written direction Give patient a blank piece of paper & ask to write a sentence. Score if it contains a noun & verb.: sentence contains subject and verb Score Score: 19 Assessment & Plan Assessment & Plan (1) Alzheimer's dementia: Code(s): G30.9 - Alzheimer's disease, unspecified; F02.80 - Dementia in other diseases classified elsewhere, unspecified severity, without behavioral disturbance, psychotic disturbance, mood disturbance, and anxiety Category: Medical Qualifiers: Alzheimer's disease onset: late onset Dementia severity: moderate Dementia behavioral or psychological symptom: without behavioral, psychotic, or mood disturbance or anxiety Qualified Code(s): G30.1 - Alzheimer's disease with late onset; F02.B0 - Dementia in other diseases classified elsewhere, moderate, without behavioral disturbance, psychotic disturbance, mood disturbance, and anxiety Plan MRI Brain Lbas- Vit B 12 TSH CBC CMP Start Memnatine Xr 7 mg and titrate to 28 mg qd Cognitive eval and tehrapy Orders: Orders MR head/brain wo con Today F02.B0 - Dementia in other diseases classified elsewhere, moderate, without behavioral disturbance, psychotic disturbance, mood disturbance, and anxiety, G30.1 - Alzheimer's disease with late onset Referrals Speech and Hearing Referral F02.B0 - Dementia in other diseases classified elsewhere, moderate, without behavioral disturbance, psychotic disturbance, mood disturbance, and anxiety, G30.1 - Alzheimer's disease with late onset Medications: New memantine 7 mg PO DAILY 14 ea 0RF memantine after 2 weeks of 7 mg dose 14 mg PO DAILY 14 ea 0RF memantine after 2 week course of 14 mg dose 21 mg PO DAILY 14 ea 0RF memantine 28 mg PO DAILY 30 ea 6RF Coding Level of Care Code New Pt Level 4 (43827) Complex EM visit Add On G2211 Diagnoses Moderate late onset Alzheimer's dementia without behavioral disturbance, psychotic disturbance, mood disturbance, or anxiety G30.1; F02.B0 Alzheimer's disease onset: late onset Dementia severity: moderate Dementia behavioral or psychological symptom: without behavioral, psychotic, or mood disturbance or anxiety
[2025-04-02 10:23] VITALS: BP 160/80; PULSE 76; O2SAT 98
--- OUTSIDE RECORDS SUMMARY | 2025-04-02 11:05 | XMS_ITS | Patient Health Record ---
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 Name Role Phone Carla Lacey MD Primary Care Provider Carlos Denton Unavailable [phone] Allergies No Known Allergies Reason For Referral [...] Problem Status W/U Status Risk Notes Problem [id number] Encounter for screening for malignant neoplasm of colon (Z12.11) Active confirmed Problem [id number] Preprocedural examination (Z01.818) Active confirmed Problem [id number] Long-term use of aspirin therapy (Z79.82) Active confirmed Problem Diverticulosis of colon (460380540) Diverticulosis of colon (K57.30) Active confirmed Plan Of Treatment Future Test Test Name Order Date COLONOSCOPY 08/19/2021 Insurance Providers Payer Name Payer Address Payer Phone Subscriber Number Group Number Insured Name Patient Relationship to Insured Coverage Start Date Coverage End Date MEDICARE OF [place] [address] [place] [address] [id number] MIRA REDDING Self - patient is the insured [facility] [address] [place] [phone] [id number] MIRA REDDING Self - patient is the insured Medical (General) History Medical History History ICD Code HTN Denies [place],CVA,Lung disease,renal disease Negative screening colonoscopy in 05/2011 Hyperlipidemia Denies [place],CVA,Lung disease,renal disease Diet-controlled DM Surgical History Surgery Date(Month/Year) x 3
== END 2025-04-02 11:04 | disposition home or self-care (01) ==
LOC: HO.HSMS 10:18
PROVIDERS: PCP Internal Medicine; Visit Provider Psychiatry & Neurology Neurology
DX: G30.1 Alzheimer's disease with late onset (principal); F02.B0 Dementia in other diseases classified elsewhere, moderate, without behavioral disturbance, psychotic disturbance, mood disturbance, and anxiety
CPT/HCPCS: 99204; G2211

== ENCOUNTER → 2025-04-02 10:18 | Outpatient (BNVA) | payer MEDICARE, OTHER, SELFPAY | PROVIDERS: PCP Internal Medicine; Visit Provider Psychiatry & Neurology Neurology | DX: G30.1 Alzheimer's disease with late onset (principal); F02.B0 Dementia in other diseases classified elsewhere, moderate, without behavioral disturbance, psychotic disturbance, mood disturbance, and anxiety | CPT/HCPCS: 99202 ==

== ENCOUNTER 2025-04-12 18:10 | Outpatient (REF) | payer MEDICARE, OTHER, SELFPAY ==
--- NOTE | ~2025-04-12 | MR_ITS ---
EXAMINATION: MR BRAIN WITHOUT CONTRAST CLINICAL INFORMATION: Alzheimer's disease. COMPARISON: None available. TECHNIQUE: MRI of the brain was obtained using routine sequences without contrast. FINDINGS: No susceptibility sequence acquired/provided. No restricted diffusion. No acute intracranial hemorrhage, mass effect, midline shift, hydrocephalus or herniation. Asymmetric prominent right lateral ventricle which could be congenital. Old lacunar infarct, deep white matter left parietal. Prominence of the extra-axial CSF spaces, cerebral sulci and ventricles likely central volume loss. No signal abnormality in the hippocampi. Sellar/suprasellar region demonstrated no signal abnormality or masses. Craniocervical junction demonstrates normal position of the cerebellar tonsils. Flow-void signal within the main cerebral vessels is normal. Polypoid mucosal thickening, maxillary sinuses. Mucosal thickening in the ethmoid air cells. Hyperintense T2 signal in the mastoid air cells. MR/MR head/brain wo con IMPRESSION: No acute stroke. Global cerebral atrophy. Old lacunar infarcts, deep white matter left parietal. Electronically signed by: Onel Cabral MD 04/13/2025 09:29 AM EDT
--- OUTSIDE RECORDS SUMMARY | 2025-04-12 18:16 | XMS_ITS | Patient Health Record ---
Author Organization [facility] Address [address] [place] [address] Care Team Providers Care Client Services Vice President Name Role Phone Carla Lacey MD Primary Care Provider Carlos Denton Unavailable [phone] Allergies No Known Allergies Reason For Referral [...] Problem Status W/U Status Risk Notes Problem [id number] Encounter for screening for malignant neoplasm of colon (Z12.11) Active confirmed Problem [id number] Preprocedural examination (Z01.818) Active confirmed Problem 059231793 Long-term use of aspirin therapy (Z79.82) Active confirmed Problem Diverticulosis of colon (168150443) Diverticulosis of colon (K57.30) Active confirmed Plan Of Treatment Future Test Test Name Order Date COLONOSCOPY 08/19/2021 Insurance Providers Payer Name Payer Address Payer Phone Subscriber Number Group Number Insured Name Patient Relationship to Insured Coverage Start Date Coverage End Date [place]ARE OF [place] [address] [place] [address] [id number] MIRA REDDING Self - patient is the insured [facility] [address] [place] [phone] [id number] MIRA REDDING Self - patient is the insured Medical (General) History Medical History History ICD Code HTN Denies [place],CVA,Lung disease,renal disease Negative screening colonoscopy in 05/2011 Hyperlipidemia Denies [place],CVA,Lung disease,renal disease Diet-controlled DM Surgical History Surgery Date(Month/Year) x 3
== END 2025-04-12 18:11 | disposition home or self-care (01) ==
LOC: HO.MRI 18:10
PROVIDERS: Visit Provider Psychiatry & Neurology Neurology
DX: G30.1 Alzheimer's disease with late onset (principal); F02.B0 Dementia in other diseases classified elsewhere, moderate, without behavioral disturbance, psychotic disturbance, mood disturbance, and anxiety
CPT/HCPCS: 70551

== ENCOUNTER → 2025-04-12 18:24 | Outpatient (BNV) | payer MEDICARE, OTHER, SELFPAY | PROVIDERS: Visit Provider Radiology Diagnostic Radiology | DX: G30.9 Alzheimer's disease, unspecified (principal) | CPT/HCPCS: 70551 ==

== ENCOUNTER 2025-04-30 14:34 | Outpatient (AMB) | payer MEDICARE, OTHER, SELFPAY ==
--- OUTSIDE RECORDS SUMMARY | 2025-04-30 14:40 | XMS_ITS | Patient Health Record ---
Author Organization [facility] Address [address] [place] [address] Care Team Providers Care Molder Operator Name Role Phone Carla Lacey MD Primary Care Provider Carlos Denton Unavailable [phone] Allergies No Known Allergies Reason For Referral [...] Problem Status W/U Status Risk Notes Problem [id number] Encounter for screening for malignant neoplasm of colon (Z12.11) Active confirmed Problem [id number] Preprocedural examination (Z01.818) Active confirmed Problem [id number] Long-term use of aspirin therapy (Z79.82) Active confirmed Problem Diverticulosis of colon (531169002) Diverticulosis of colon (K57.30) Active confirmed Plan Of Treatment Future Test Test Name Order Date COLONOSCOPY 08/19/2021 Insurance Providers Payer Name Payer Address Payer Phone Subscriber Number Group Number Insured Name Patient Relationship to Insured Coverage Start Date Coverage End Date MEDICARE OF [place] [address] [place] [address] [phone] [id number] MIRA REDDING Self - patient is the insured [facility] [address] [place] [phone] [id number] MIRA REDDING Self - patient is the insured Medical (General) History Medical History History ICD Code HTN Denies CA,CVA,Lung disease,renal disease Negative screening colonoscopy in 05/2011 Hyperlipidemia Denies CA,CVA,Lung disease,renal disease Diet-controlled DM Surgical History Surgery Date(Month/Year) x 3
--- NOTE | 2025-04-30 14:48 | A.OFFPC_ITS ---
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: No Accompanied by: Self / Same As Patient Allergies No Known Allergies (No Known Allergies*) Allergy (Verified 04/30/25 14:49) Tobacco use date assessed: 04/30/25 Fall risk assessment: No Falls in past year Last assessed Fall Risk: 04/30/25 Dental Screening Dental Screen Date: 04/30/25 Did you have a dental visit in the last 12 months?: Yes Did you have a dental problem in the last 6 months where you did not have access to dental care?: No Was dental information given to patient?: Patient has dentist [facility] Medical History Adult failure to thrive Non-diabetic hypoglycemia Alzheimer's dementia Breast cancer screening by mammogram Colon cancer screening Hypertension Hypercholesterolemia Type 2 diabetes mellitus with hyperglycemia Surgical History H/O colonoscopy History of section Family History Father Lung cancer Mother Myocardial infarction Social History Household Members: Spouse Housing: House Do you presently have visiting nurse or other home services: No Alcohol intake: current Alcohol intake frequency: holidays/special occasions only Alcohol type: wine Comment: Patient's daughter remains at bedside overnight. 2 glasses of wine 3 night Patient Tobacco Use Status: Former Tobacco user Tobacco use type: Cigarette Years Smoked: 37 years old stopped e-Cigarette/Vaping Use: Never Used Second Hand Smoke Exposure: No service: No Current occupational status: retired Cognitive needs: No Hearing needs: No Vision needs: Yes (Glasses) Questionnaire PHQ-9 Over the last 2 weeks, how often have you been bothered by any of the following problems? 1. Little interest or pleasure in doing things: not at all 2. Feeling down, depressed, or hopeless: not at all 3. Trouble falling or staying asleep, or sleeping too much: not at all 4. Feeling tired or having little energy: several days 5. Poor appetite or overeating: not at all 6. Feeling bad about yourself - or that you are a failure or have let yourself or your family down: not at all 7. Trouble concentrating on things, such as reading the newspaper or watching television: several days 8. Moving or speaking so slowly that other people could have noticed. Or the opposite - being so fidgety or restless that you have been moving around a lot more than usual: not at all 9. Thoughts that you would be better off or of hurting yourself in some way: not at all Total score: 2 Source: Developed by Drs. Carlos Tucker, Patti Phillips, Lanre Jiménez and colleagues, with an educational shawnee from [employer]. Thrive Questionnaire Date Thrive assessed: 03/31/25 AUDIT C Alcohol Use Questionnaire (AUDIT-C) 1. How often do you have a drink containing alcohol?: 4 or more times a week (Glass of wine) 2. How many drinks containing alcohol do you have on a typical day when you are drinking?: 1 or 2 3. How often do you have six or more drinks on one occasion?: Never Total Score: 4 Score Reviewed/Action Taken: Yes EMANUEL-7 AMB Questionnaire EMAUNEL-7 Date EMANUEL - 7 assessed: 04/30/25 Source: Developed by Drs. Carlos Tucker, Patti Phillips, Lanre Jiménez and colleagues, with an educational shawnee from [employer]. Physical exam (Primary Care) Vital Signs: Last Vital Signs Pulse 94 04/30/25 14:51 BP 144/58 H 04/30/25 14:51 Pulse Ox 98 04/30/25 14:51 Oxygen Delivery Method Room Air 04/30/25 14:51 BMI result Body Mass Index 25.5 Tobacco/Smoking Status: Tobacco use Status Tobacco use date assessed 04/30/25 04/30/25 14:57 Patient Tobacco Use Status Former Tobacco user 04/30/25 14:57 Tobacco use type Cigarette 04/30/25 14:57 e-Cigarette/Vaping Use Never Used 04/30/25 14:57 PHQ-9: PHQ-9 Score PHQ-9: Total score 2 04/30/25 15:07 Thrive Assessment: Date of Thrive Assessment Date Thrive assessed 03/31/25 04/30/25 14:57 Const General: alert; No acute distress Eyes Conjunctivae: conjunctivae normal Resp Auscultation: clear to auscultation bilaterally Cardio Rate: regular rate Rhythm: regular rhythm GI Inspection: Yes normal to inspection Extrem General: Yes normal to inspection and No edema Coding Level of Care Code Est Pt Level 4 (28175) Complex EM visit Add On G2211 Diagnoses Primary hypertension I10 Hypertension type: primary hypertension Hypercholesterolemia E78.00 Type 2 diabetes mellitus with hyperglycemia, without long-term current use of insulin E11.65 Diabetes mellitus ocean transportation intermediary insulin use: without longterm use Moderate late onset Alzheimer's dementia without behavioral disturbance, psychotic disturbance, mood disturbance, or anxiety G30.1; F02.B0 Alzheimer's disease onset: late onset Dementia behavioral or psychological symptom: without behavioral, psychotic, or mood disturbance or anxiety Dementia severity: moderate Assessment & Plan Assessment & Plan (1) Hypertension: Code(s): I10 - Essential (primary) hypertension Category: Medical Qualifiers: Hypertension type: primary hypertension Qualified Code(s): I10 - Es sential (primary) hypertension Plan: Continue with blood pressure medication. Decrease salt intake and exercise on losartan. BP high here, advised to monitor the BP (2) Hypercholesterolemia: Code(s): E78.00 - Pure hypercholesterolemia, unspecified Category: Medical Plan: Avoid fried foods, chicken skin, eggs, butter margarine, pastries and meat. Be it pork or beef they have a lot of cholesterol on rosuvastatin 40 mg once a day patient's last blood work was in September 2024 (3) Type 2 diabetes mellitus with hyperglycemia: Comment: diet controlled, Dr. Seymour Code(s): E11.65 - Type 2 diabetes mellitus with hyperglycemia Category: Medical Qualifiers: Diabetes mellitus longterm insulin use: without ocean transportation intermediary use Qualified Code(s): E11.65 - Type 2 diabetes mellitus with hyperglycemia Plan: Decrease the amount of carbohydrate intake, pasta, bread, rice and potatoes are all sugar and that is aside from all the sweet stuff, remember that fruits are good but they are Sweet also. Diet controlled but recently was given prednisone for mesenteric panniculitis (4) Alzheimer's dementia: Code(s): G30.9 - Alzheimer's disease, unspecified; F02.80 - Dementia in other diseases classified elsewhere, unspecified severity, without behavioral disturbance, psychotic disturbance, mood disturbance, and anxiety Category: Medical Qualifiers: Alzheimer's disease onset: late onset Dementia behavioral or psychological symptom: without behavioral, psychotic, or mood disturbance or anxiety Dementia severity: moderate Qualified Code(s): G30.1 - Alzheimer's disease with late onset; F02.B0 - Dementia in other diseases classified elsewhere, moderate, without behavioral disturbance, psychotic disturbance, mood disturbance, and anxiety Plan: Patient has seen Neurology and has been started on memantine ER Plan History of Present Illness The patient is a 74-year-old female presenting with the management of multiple chronic conditions. She has a history of diabetes mellitus, which is diet- controlled, but recently received prednisone for mesenteric paniculitis, potentially affecting her glucose levels. Her last A1c was 5.8, indicating good control prior to the prednisone treatment. The patient also has controlled hypertension and hypercholesterolemia, managed with losartan and rosuvastatin respectively. She does not monitor her blood pressure at home, but her daughter, who is a nurse, can assist with this. Osteopenia was diagnosed with the last bone density scan in March 2021. The patient has not reported any fractures or significant bone pain. Dementia is a recent diagnosis, with an MRI showing global cerebral atrophy and old lacunar infarcts. She is currently on Memantine XR, titrated to 20 mg once daily, with no reported side effects such as nausea. In March 2025, the patient was hospitalized due to decreased responsiveness and abdominal pain, which led to the incidental finding of mesenteric paniculitis on a CT scan. She was treated with prednisone and has since reported no further abdominal pain. Recent lab work from March 2025 showed anemia with a hemoglobin of 9.8, mild leukocytosis, leukopenia, and hyponatremia. Renal and liver functions were stable, and urine tests showed no abnormalities. Health Maintenance - Vaccinations: Shingles, tetanus, pneumonia - Recommended flu shot in June - COVID vaccination discussed Social History - Daughter is a nurse and assists with healthcare needs - Patient maintains an active lifestyle and exercises regularly Review of Systems - Neurological: Denies nausea, reports no recent falls - Gastrointestinal: Denies abdominal pain, nausea, vomiting, or constipation - Respiratory: Denies cough or breathing difficulties - Cardiovascular: Denies chest pain or swelling Physical Exam - Neurological: Squeeze fingers, shrug shoulders, close eyes tightly Results - MRI: Global cerebral atrophy, old lacunar infarct - CT Scan: Incidental finding of mesenteric paniculitis - Lab Work (March 2025): Anemia (Hb 9.8), mild leukocytosis, leukopenia, hyponatremia Plan The management plan includes continued monitoring of diabetes mellitus, with attention to potential glucose fluctuations due to recent prednisone use for mesenteric paniculitis. Blood pressure management will involve home monitoring, assisted by the patient's daughter, to ensure control of hypertension. Hypercholesterolemia will continue to be managed with rosuvastatin, and osteopenia will be monitored with consideration for future bone density assessments. Dementia management includes ongoing use of Memantine XR, with follow-up in neurology scheduled in four months. Preventative care measures include ensuring vaccinations are up to date, with a flu shot recommended in June and discussion of COVID-19 vaccination. The patient is advised to maintain an active lifestyle, adequate hydration, and a balanced diet to support overall health. Patient was informed and verbally consented to the use of an ambient scribe for clinic note documentation during this visit. Discussion Notes During the visit, we discussed the management of diabetes mellitus, emphasizing the importance of monitoring glucose levels due to recent prednisone use. I advised home blood pressure monitoring to manage hypertension effectively, with assistance from the patient's daughter. We reviewed the importance of maintaining cholesterol levels with rosuvastatin and discussed the need for future bone density assessments for osteopenia. Dementia management was addressed with Memantine XR, and a follow-up with neurology is scheduled in four months. We also covered preventative care, including vaccinations and lifestyle modifications to support overall health. Patient Instructions - Monitor blood glucose levels regularly, especially after prednisone use. - Check blood pressure at home with assistance from your daughter. - Continue taking rosuvastatin as prescribed. - Schedule a bone density scan in the future to monitor osteopenia. - Follow up with neurology in four months for dementia management. - Stay up to date with vaccinations, including a flu shot in June. - Maintain an active lifestyle, stay hydrated, and eat a balanced diet.
[2025-04-30 14:51] VITALS: BP 144/58; PULSE 94; O2SAT 98; BMI 25.5
== END 2025-04-30 15:24 | disposition home or self-care (01) ==
LOC: HO.HMCH 14:34
PROVIDERS: PCP Internal Medicine; Visit Provider Internal Medicine
DX: E11.65 Type 2 diabetes mellitus with hyperglycemia (principal); G30.1 Alzheimer's disease with late onset; F02.B0 Dementia in other diseases classified elsewhere, moderate, without behavioral disturbance, psychotic disturbance, mood disturbance, and anxiety; Z68.25 Body mass index [BMI] 25.0-25.9, adult; I10 Essential (primary) hypertension; E78.00 Pure hypercholesterolemia, unspecified

== ENCOUNTER → 2025-04-30 14:34 | Outpatient (BNVA) | payer MEDICARE, OTHER, SELFPAY | PROVIDERS: PCP Internal Medicine; Visit Provider Internal Medicine | DX: I10 Essential (primary) hypertension (principal); E78.00 Pure hypercholesterolemia, unspecified; E11.65 Type 2 diabetes mellitus with hyperglycemia; G30.1 Alzheimer's disease with late onset; F02.B0 Dementia in other diseases classified elsewhere, moderate, without behavioral disturbance, psychotic disturbance, mood disturbance, and anxiety | CPT/HCPCS: 99212 ==

== ENCOUNTER 2025-08-03 12:52 | Outpatient (AMB) | payer MEDICARE, OTHER, SELFPAY ==
--- NOTE | 2025-08-03 13:03 | MHC.OFFVIS ---
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 Accompanied by: Spouse Allergies No Known Allergies (No Known Allergies*) Allergy (Verified 08/03/25 13:05) Medication List - Last Reconciled 08/03/25 by Ilda Arrington MD aspirin 81 mg PO DAILY cyanocobalamin (vitamin B-12) (Vitamin B-12) 1,000 mcg PO DAILY donepezil 1/2 tab qd for 4 weeks then 1 tab qd orally daily; losartan 50 mg PO BID memantine 28 mg PO DAILY omeprazole 40 mg PO BID@0630,1630 rosuvastatin 40 mg PO DAILY HPI Comments Details: 74y/o Right Handed female comes for cognitive evaluation.SHe is on memantine now No major change MRI showed global atrophy She is accompanied by her John who helps with history . Her family noticed that she has slowed down and shuffles about 3 years ago.They also noticed that she was frequently repeating herself worsening over the past 3 years. she has trouble with short term recall, trouble with conversations, forgetting often , misplaces things in the house, has trouble using the remote , using microwave. she does not cook anymore. Mood is stable . no word searching issues. No change in personality.she does not drive- says she does not feel safe.she denies hallucinations, change in behavior. No head injury No fh/o dementia [facility] Medical History Adult failure to thrive Non-diabetic hypoglycemia Alzheimer's dementia Breast cancer screening by mammogram Colon cancer screening Hypertension Hypercholesterolemia Type 2 diabetes mellitus with hyperglycemia Surgical History H/O colonoscopy History of section Family History Father Lung cancer Mother Myocardial infarction Social History Household Members: Spouse Housing: House Do you presently have visiting nurse or other home services: No Alcohol intake: current Alcohol intake frequency: holidays/special occasions only Alcohol type: wine Comment: Patient's daughter remains at bedside overnight. 2 glasses of wine 3 night Patient Tobacco Use Status: Former Tobacco user Tobacco use type: Cigarette Years Smoked: 37 years old stopped e-Cigarette/Vaping Use: Never Used Second Hand Smoke Exposure: No service: No Current occupational status: retired Cognitive needs: No Hearing needs: No Vision needs: Yes (Glasses) Review of Systems Neuro Reports confusion Psych Reports confusion Physical Exam Vital Signs: Last Vital Signs Pulse 73 08/03/25 13:05 BP 140/72 H 08/03/25 13:05 Pulse Ox 99 08/03/25 13:05 Oxygen Delivery Method Room Air 08/03/25 13:05 BMI result Body Mass Index 26.9 Const General: cooperative, healthy appearing, comfortable, no acute distress and confusion Nutritional Appearance: average body habitus Orientation/consciousness: confusion Eyes Pupils: Equal, round and reactive pupils present Neuro Other: gait- right arm decreased swing - mild stoop, mild slowness Right UE 2 + cog wheel rigidty General: tone normal, moves all extremities, no focal motor deficits and confusion Cranial nerves: Yes Facial sensation intact/muscles of mastication intact, Yes Equal, round and reactive pupils present, Yes Bilaterally intact EOM present, Yes Nystagmus not present, Yes Normal facial strength present, Yes Midline tongue present, Yes Symmetric palate elevation present and Yes Ability to bilaterally elevate shoulders present Cognition (Neuro): abnormal cognition Motor exam (neuro): 5/5 motor strength present throughout Deep tendon reflexes (DTR's): Right triceps reflex intensity grade: 2+, Left triceps reflex intensity grade: 2+, Rt Biceps (C5, C6): 2+, Left biceps reflex intensity grade: 2+, Right brachioradialis reflex intensity grade: 2+, Left brachioradialis reflex intensity grade: 2+, Right patellar reflex intensity grade: 2+ and Left patellar reflex intensity grade: 2+ Coordination: [id number] test normal Assessment & Plan Assessment & Plan (1) Alzheimer's dementia: Comment: MMSE 19/30 Code(s): G30.9 - Alzheimer's disease, unspecified; F02.80 - Dementia in other diseases classified elsewhere, unspecified severity, without behavioral disturbance, psychotic disturbance, mood disturbance, and anxiety Category: Medical Qualifiers: Alzheimer's disease onset: late onset Dementia severity: moderate Dementia behavioral or psychological symptom: without behavioral, psychotic, or mood disturbance or anxiety Qualified Code(s): G30.1 - Alzheimer's disease with late onset; F02.B0 - Dementia in other diseases classified elsewhere, moderate, without behavioral disturbance, psychotic disturbance, mood disturbance, and anxiety Plan MRI Brain 04/2025 -no acute stroke. Global cerebral atrophy. Old lacunar infarcts, deep white matter left parietal. Labs- Vit B 12 TSH CBC CMP Memantine Xr 28 mg qd Donepezil 10mg - 1/2 tab qd for 4 weeks then 1 tab qd Medications: New donepezil 1/2 tab qd for 4 weeks then 1 tab qd orally daily; 30 tabs 6RF Coding Level of Care Code Complex visit Add On G2211 Diagnoses Moderate late onset Alzheimer's dementia without behavioral disturbance, psychotic disturbance, mood disturbance, or anxiety G30.1; F02.B0 Alzheimer's disease onset: late onset Dementia severity: moderate Dementia behavioral or psychological symptom: without behavioral, psychotic, or mood disturbance or anxiety
[2025-08-03 13:05] VITALS: BP 140/72; PULSE 73; O2SAT 99; BMI 26.9
== END 2025-08-03 13:31 | disposition home or self-care (01) ==
LOC: HO.HSMS 12:53
PROVIDERS: PCP Internal Medicine; Visit Provider Psychiatry & Neurology Neurology
DX: G30.1 Alzheimer's disease with late onset (principal); F02.B0 Dementia in other diseases classified elsewhere, moderate, without behavioral disturbance, psychotic disturbance, mood disturbance, and anxiety
CPT/HCPCS: 99213; G2211

== ENCOUNTER → 2025-08-03 12:52 | Outpatient (BNVA) | payer MEDICARE, OTHER, SELFPAY | LOC: CF 13:45 | PROVIDERS: PCP Internal Medicine; Visit Provider Psychiatry & Neurology Neurology | DX: G30.1 Alzheimer's disease with late onset (principal); F02.B0 Dementia in other diseases classified elsewhere, moderate, without behavioral disturbance, psychotic disturbance, mood disturbance, and anxiety; I10 Essential (primary) hypertension; Z79.82 Long term (current) use of aspirin; Z87.891 Personal history of nicotine dependence | CPT/HCPCS: 99212 ==